=== PATIENT | female | born 1950 | race Caucasian/White ===

== ENCOUNTER → 2023-11-16 09:06 | Outpatient (REF) | payer OTHER, SELFPAY | LOC: RAD 09:06 | PROVIDERS: ATTENDING PHYSICIAN Physician Assistant Surgical; FAMILY PHYSICIAN Family Medicine | DX: Z96.642 Presence of left artificial hip joint (principal) | CPT/HCPCS: 78315; A9503 ==

== ENCOUNTER → 2023-12-22 17:32 | Outpatient (REF) | payer OTHER, SELFPAY | LOC: PAVMRI 17:32 | PROVIDERS: ATTENDING PHYSICIAN Physician Assistant Surgical; FAMILY PHYSICIAN Family Medicine | DX: M54.50 Low back pain, unspecified (principal) | CPT/HCPCS: 72148 ==

== ENCOUNTER → 2024-02-16 14:48 | Outpatient (REF) | payer OTHER, SELFPAY | LOC: WDC 14:48 | PROVIDERS: ATTENDING PHYSICIAN Family Medicine | DX: Z12.31 Encounter for screening mammogram for malignant neoplasm of breast (principal) | CPT/HCPCS: 77063; 77067 ==

== ENCOUNTER 2024-02-26 13:12 | Inpatient (IN) | payer OTHER, SELFPAY ==
[2024-02-26] VITALS (11 sets, daily range): BP systolic 120–161; BP diastolic 68–96; BMI 24.5
[2024-02-26 10:46] LABS: % Basophils 1.7 % (0-2); % Eosinophils 18.3 % (0-6); % Immature Granulocytes 0.3 % (0-0.5); % Lymphocytes 29.4 % (20.5-51.1); % Monocytes 6.9 % (1.7-9.3); % Neutrophils 43.4 % (42.2-75.2); Absolute Basophils 0.1 10^3/uL (0-0.2); Absolute Eosinophils 1.2 10^3/uL (0-0.7); Absolute Lymphocytes 1.9 10^3/uL (1.2-3.4); Absolute Monocytes 0.4 10^3/uL (0.1-0.6); Absolute Neutrophils 2.8 10^3/uL (1.4-6.5); Hemoglobin 12.8 g/dL (12.0-16.0); Mean Corp Hgb Conc. 35.6 g/dL (33.0-37.0); Mean Corpuscular Hgb 32.5 pg (27.0-31.0); Mean Corpuscular Volume 91.4 fL (81.0-99.0); Mean Platelet Volume 9.4 fL (7.4-10.4); Nucleated Red Blood Cells % 0 %; Platelet Count 319 10^3/uL (130-400); Red Blood Cell Count 3.94 10^6/uL (4.20-5.40); Red Cell Dist. Width 12.3 % (11.5-14.5); White Blood Cell Count 6.4 10^3/uL (4.8-10.8)
[2024-02-26 10:58] LABS: ALT (SGPT) 14 U/L (0-35); AST (SGOT) 27 U/L (14-36); Albumin 4.1 g/dl (3.5-5.0); Alkaline Phosphatase 71 U/L (38-126); Blood Urea Nitrogen 11 mg/dl (7-17); Calcium 9.3 mg/dl (8.4-10.2); Carbon Dioxide 25 mmol/L (22-30); Chloride 102 mmol/L (98-107); Glucose 114 mg/dl (70-99); Potassium 3.9 mmol/L (3.5-5.1); Sodium 134 mmol/L (135-145); Total Protein 6.6 g/dl (6.3-8.2); eGFR > 60.00
[2024-02-26 11:11] LABS: Troponin I 0.142 ng/ml
[2024-02-26] MEDS: DUONEB 3 ML INH ×5 (11:26→20:04)
[2024-02-26] MEDS: DECADRON 10 MG IV (11:26)
--- NOTE | 2024-02-26 11:47 | ED.GENMED ---
History of Present Illness
General
Chief Complaint: Breathing Problem
Source: patient and family
Exam Limitations: none
Time Seen by Provider: 02/26/24 10:44
Travel History
Have you had any contact with someone who has COVID-19?: No
Do you have any symptoms of coronavirus? Fever > 100 degrees, chills, cough, shortness of breath, sore throat, loss of taste or smell, muscle aches, or headache?: Yes
Symptoms:: sob
History of Present Illness
History of Present Illness:
73-year-old female presents short of breath. Patient states that her shortness of breath is progressed over the last 1 week but worse since this morning. Patient also admits she has had some chest pressure and pain into her arms over the last few
days that comes and goes. Patient states that the chest pressure is gone right now. She admits that she was not taking her inhaler for about a week. She does continue to smoke. No fevers.
Past History
Past History
ED Past Medical History: HTN, Hypothyroidism and Other (PMR, temporal arteritis)
ED Past Surgical History: and Orthopedic
Social History
Tobacco: Smoker
Alcohol: None
Drug: None
Personal:
Living: with family
Phy Exam
Physical Exam
Physical Exam:
CONSTITUTIONAL Patient alert and oriented to person, place and time. Well-appearing. Vital signs reviewed.
HEAD atraumatic, normocephalic.
EYES eyelids normal to inspection, Pupils equally round and reactive to light, Extraocular muscles intact, Conjunctiva normal, Sclera normal.
NECK normal range of motion, Trachea midline, no jugular venous distention.
RESPIRATORY CHEST mild respiratory distress noted, Chest expansion equal, wheezing bilaterally
CARDIOVASCULAR regular rate and rhythm, Heart sounds normal.
BACK normal inspection, no obvious deformities
UPPER EXTREMITY range of motion normal, Motor strength normal, no cyanosis, no edema.
LOWER EXTREMITY range of motion normal, Motor strength normal, no cyanosis, no edema.
NEURO Speech normal, No focal motor deficits, [place] coma scale 15, Memory normal, Cranial Nerves intact to screening exam.
SKIN skin warm, dry, and normal in color.
PSYCHIATRIC patient oriented to person place and time, Normal affect.
Scores
Heart Failure Risk
Heart Failure Risk Score: Not Applicable
Course
Orders/Labs/Results
Orders:
Orders
02/26/24 10:12
Electrocardiogram (*1) Urgent
Reason for Study: Shortness of Breath
EKG- Treatment ONCE
02/26/24 10:30
CXR2 [CR Chest - 2 Views ] Urgent
Comment:
Reason For Exam: shortness of breath
02/26/24 10:39
Complete Blood Count/With Diff Urgent
Comprehensive Metabolic Panel Urgent
NT-proBNP Urgent
Troponin I Urgent
02/26/24 11:07
Dexamethasone Sod Phosphate [Decadron] 10 mg IV NOW STA
Ipratropium/Albuterol Sulfate [Duoneb] 3 ml INH R NOW STA
Ipratropium/Albuterol Sulfate [Duoneb] 3 ml INH R NOW STA
Ipratropium/Albuterol Sulfate [Duoneb] 3 ml INH R NOW STA
02/26/24 11:46
Electrocardiogram (*1) Urgent
Reason for Study: Chest Pain
EKG- Treatment ONCE
Aspirin 325 mg PO NOW STA
Heparin 4,000 units IV NOW STA
Nursing to Place Non Medication Order As Directed
Physician Order: PTT 6 hours after initial start of Heparin infusion
02/26/24 11:52
PTT Urgent
Comment: Obtain baseline before beginning heparin infusion if not already collected
02/26/24 12:00
Heparin 41592 Units/250 ml 25,000 units in 250 ml IV PER PROTOCOL
Weight to be used for heparin protocol in kilograms (kg):: 68.9
Protocol:: Cardiac Tx/Acute Coronary
PTT Goal Range to be used:: PTT 73 to 111 seconds
Order type:: Initial
INITIAL Infusion Dose (UNITS/KG/hr) & then follow protocol:: 12 units/kg/hr
Infusion Dose in UNITS/hr & then follow protocol (UNITS/hr):: 850
INFUSION RATE in mL/hr & then follow protocol (mL/hr):: 8.5
PTT less than or equal to 64 seconds:: Increase rate by 200 units/hr (+ 2 mL/hr)
PTT 64.1 to 72.9 seconds:: Increase rate by 100 units/hr (+ 1 mL/hr)
PTT 73 to 111 seconds:: Target Range. No change in rate.
PTT 111.1 to 130.9 seconds:: Decrease rate by 100 units/hr (- 1 mL/hr)
PTT 131 to 199.9 seconds:: HOLD for 1 hr. Then decrease rate by 200 units/hr (- 2 mL/hr)
PTT greater than or equal to 200 seconds:: HOLD for 2 hrs & Notify Provider. Then decrease by 200 units/hr (-
2 mL/hr)
Lab follow-up:: Each change, PTT q6h until 2 consecutive are therapeutic. Then PTT
daily.
02/26/24 12:50
CARDIOLOGY CONSULT Routine
Consulting Provider: Kenney Garnica
Was physician already notified: Yes
02/26/24 12:51
Admit/Transfer Patient As Directed
Co-Sign Provider:
Level of Care: Inpatient admission
Assign to:: IV[facility]
Physician / Group: Aureliano
Diagnosis: COPD Exacerbation, NSTEMI
Reason for Hospitalization: aspirin, heparin drip, cardiology consult
Expected length of stay greater than two midnights?: Yes
ELOS- Estimated Length of Stay in days: 3
I certify the patient meets the requirements for IP care: Yes
02/26/24 12:52
Code Status As Directed
Resuscitation Status: Full Code
02/26/24 14:23
Troponin I Q6H
02/26/24 14:30
ECG [Electrocardiogram (*1)] Q6H
Reason for Study: Chest Pain
02/26/24 18:30
PTT Urgent
02/26/24 20:30
ECG [Electrocardiogram (*1)] Q6H
Reason for Study: Chest Pain
Troponin I Q6H
Abnormal Lab Results
02/26/24
10:39
RBC 3.94 L 10^6/uL
(4.20-5.40)
Hct 36.0 L %
(37.0-47.0)
MCH 32.5 H pg
(27.0-31.0)
Absolute Eos (auto) 1.2 H 10^3/uL
(0-0.7)
Eosinophils % 18.3 H %
(0-6)
Sodium 134 L mmol/L
(135-145)
Glucose 114 H mg/dl
(70-99)
Troponin I 0.142 H* ng/ml
02/26/24 10:39
02/26/24 10:39
Vital Signs
Initial and Last Documented VS:
Initial Vital Signs
Temp Pulse Resp BP Pulse Ox
97.9 F 82 18 161/96 92
02/26/24 10:09 02/26/24 10:09 02/26/24 10:09 02/26/24 10:09 02/26/24 10:09
Last Documented Vital Signs
Temp Pulse Resp BP Pulse Ox
97.5 F 87 20 128/77 96
02/26/24 14:55 02/26/24 14:55 02/26/24 14:55 02/26/24 14:55 02/26/24 14:55
MDM/Problems Addressed
MDM/Problems Addressed:
Acute severe COPD exacerbation, unstable angina, chronic tobacco abuse
*Radiology
Radiology exam reviewed: preliminary read by ED provider
*Pulse Oximetry
Patient hypoxic: yes
*EKG
Interpreted by ED Provider?: Yes
Interpretation: abnormal
Rate: normal
Rhythm: sinus
Ischemia: non-specific ST changes (Q wave inferiorly. Question mild ST elevation without reciprocal changes in inferior leads.)
*Map Mounter Interpretation
Rate: normal
Interpretation: normal
Rhythm: sinus
*Critical Care Note
Total Time (30-74mins, 75-104mins- exclusive of procedures): 45 minutes
Data Reviewed
Review of Other/Old Records Reveals: Records (Prior records reviewed including Holter monitor and stress test from 2019)
Source: patient and family
Further Testing Considered But Not Given:
Considered CTA but specked COPD exacerbation with unstable angina. Treat with heparin
Patient Management
Discussion with other providers: Hospitalist
Escalation/DeEscalation of care consider admission/obs:
73-year-old female presents with COPD exacerbation. Found to have elevated troponin with recent off-and-on chest pressure. Currently pain-free. IV heparin. Aspirin. Steroids. Admit
ED Attending Note
-
Portions of this chart may have been created with voice recognition software.� Occasional wrong word or��sound alike� substitutions may have occurred due to the inherent limitations of voice recognition software.
Discharge Plan
Departure
Patient Disposition: Admit
Date of Disposition: 02/26/24
Time of Disposition: 11:51
Admit to: Telemetry
Presentation/result/management discussed w/ accepting MD/DO: Hospitalist
Discharge Problem:
Acute exacerbation of chronic obstructive pulmonary disease, Unstable angina
Interventions
Interventions:
*Risk Screen - Suicide Last Done: 02/26/24 10:57
*General Assessment Last Done: 02/26/24 10:57
*Neglect/Abuse Screening Last Done: 02/26/24 10:57
ED- Fall Risk Assessment Last Done: 02/26/24 10:57
*ED COVID-19 Vaccine History Last Done: 02/26/24 10:09
*Nursing Disposition Last Done: 02/26/24 14:28
ED- Cardiac Assessment Last Done: 02/26/24 10:57
ED- Pulmonary Assessment Last Done: 02/26/24 10:57
Discharge Date and Time
Discharge Date/Time: 02/26/24 15:13
[2024-02-26] MEDS: ASPIRIN 325 MG PO (11:59)
[2024-02-26 12:15] LABS: APTT 31.4 Sec (23.4-35.0)
[2024-02-26] MEDS: HEPARIN 25000 UNITS/250 ML IV (12:23)
[2024-02-26] MEDS: HEPARIN 4000 UNITS IV (12:24)
--- NOTE | 2024-02-26 12:32 | EDRN ---
Heparin gtt started at 850units/hour, this RN noticed that the pts Sp02 dipped to 88%, this RN placed 3L NC on the pt and Sp02 came up to 98%, this RN notified the provider
--- NOTE | 2024-02-26 13:14 | HPS.HSE ---
Family Physician
-
Family Physician: Demarco Kapoor
Chief Complaint
-
Shortness of Breath
History of Present Illness
This is a 73 year old female with past medical history of chronic obstructive pulmonary disease who presents to the emergency department with shortness of breath for a week. She reports stopping her inhalers 2 weeks ago for a couple of days and then
restarting them last week per recommendation of her PCP. Over the last week, she reports her dyspnea worsened and noticed she started wheezing, prompting her to present to the emergency department. She states she cannot take a deep breath. Patient
notes increased cough productive of thick white sputum. Patient was given Duoneb in the emergency department and reports improvement in her breathing and wheezing. Upon arrival to the emergency department, she also reported chest pressure and arm
pain. She states this is new in the last couple of days and notes the pressure comes and goes, particularly worse today. She denies chest pain/pressure at the present time. Patient denies fever, chills, and sweats.
Medical History
Past Medical History
Past Medical History: Reports Other
Additional Past Medical History:
COPD
Hypothyroidism
Spinal Stenosis
Osteoporosis
Past Surgical History: Reports Other
Additional Past Surgical History:
Left Hip Replacement
Carpal Tunnel
x 3
Social History
Tobacco: Smoker (1 ppd x 40 years)
Living: With Family
Family History
Family History: Not pertinent
Allergies / Home Medications
Allergies reflects when Allergies were last updated in [employer].
Home Medications with original date entered in [employer]
Allergy/Medication List:
Allergies
Allergy/AdvReac Type Severity Reaction Status Date / Time
No Known Allergies Allergy Verified 07/21/23 05:01
Home Medications
calcium carbonate 500 mg PO BID Supplement 07/15/23
cholecalciferol (vitamin D3) 50 mcg (2,000 unit) tablet (Vitamin D3) 50 mcg PO DAILY Supplement 07/15/23
cyanocobalamin (vitamin B-12) 2,500 mcg tablet 2,500 mcg PO DAILY Supplement 07/15/23
gabapentin 300 mg capsule 300 mg PO BID Pain 07/15/23
levothyroxine 75 mcg tablet 75 mcg PO DAILY Thyroid 07/15/23
umeclidinium 62.5 mcg-vilanterol 25 mcg/actuation powdr for inhalation (Anoro Ellipta) 2 inh inhalation R DAILY Lung/Breathing Issues 07/15/23
albuterol sulfate 90 mcg/actuation aerosol inhaler 2 puff inhalation R Q4HPRN PRN shortness of breath or wheezing 02/26/24
ascorbic acid (vitamin C) 500 mg tablet (Vitamin C) 500 mg PO DAILY PRN supplement 02/26/24
dextran 70-hypromellose eye drops in a dropperette (Artificial Tears (PF) drops in a dropperette) 1 drp LEFT EYE DAILYPRN PRN dry eye 02/26/24
flaxseed oil 1,000 mg capsule 1,000 mg PO BID 02/26/24
ibuprofen 200 mg tablet 400 mg PO BID 02/26/24
Review of Systems
-
A 12 point ROS was completed and negative except as noted: Yes
Constitutional: Denies Fever or Chills
Respiratory: Reports See HPI and Cough
Cardiac: Reports See HPI
Abdomen/GI: Denies Abdominal Pain, Nausea or Vomiting
Physical Exam
Vital Signs
Vital Signs
Temp Pulse Resp BP Pulse Ox
98.1 F 84 28 146/87 98
02/26/24 12:33 02/26/24 12:33 02/26/24 12:33 02/26/24 12:33 02/26/24 12:33
Physical Exam
General: Comfortable and Conversant
HEENT: Anicteric, Moist mucous membranes and Oxygen (Nasal Cannula)
Respiratory: Wheezes (Faint late expiratory wheezes anteriorly) and Decreased Breath Sounds (posteriorly)
Cardiac: S1/S2 and Regular Rhythm
GI: Soft and Non Tender
Rectal: Deferred by Provider
Musculoskeletal: No Clubbing, No Cyanosis and No Edema
Skin: Warm and Dry
Neuro: Awake, Alert, Oriented and Nonfocal/grossly intact
Laboratory Results
-
02/26/24 10:39
02/26/24 10:39
Laboratory Results
APTT 31.4 Sec (23.4-35.0) 02/26/24 11:52
Total Bilirubin 1.0 mg/dl (0.2-1.3) 02/26/24 10:39
AST 27 U/L (14-36) 02/26/24 10:39
ALT 14 U/L (0-35) 02/26/24 10:39
Alkaline Phosphatase 71 U/L (38-126) 02/26/24 10:39
Troponin I 0.142 ng/ml H* 02/26/24 10:39
Data Reviewed
-
Diagnostic Radiology: Report Reviewed by me (CXR)
Medical Tests (Nuc Med, Echo, EKG etc): Image Personally Visualized and interpreted (Multiple ECG comparisons)
Lab Data: Labs Reviewed by me
Impression/Plan
-
Acute COPD Exacerbation
-Continue Decadron
-Continue Duoneb QID and PRN
-Continue Pulmicort
Elevated Troponin, rule out NSTEMI
-Consult Cardiology
-Trend Troponin and Monitor serial ECGs
-Continue heparin drip
-Continue aspirin
-Check FLP and HgbA1c
Hypothyroidism
-Continue Synthroid
Spinal Stenosis
-Continue gabapentin
-Hold meloxicam
Tobacco Use Disorder
-Encourage smoking cessation
DVT proph: Heparin Drip
Code Status: Full Code
--- NOTE | 2024-02-26 14:15 | EDRN ---
verbal report called to the receiving nurse
--- NOTE | 2024-02-26 14:38 | W.PN.UPDATE ---
Update Note
Progress Note Update
I saw and examined the patient.
The MECHANICAL SHOVEL OPERATOR's note was reviewed and I agree with the note.
73-year-old female with past medical history of COPD, active tobacco use, hypothyroidism, history of spinal stenosis, history of hip replacement was brought to ER for having ongoing shortness of breath for 1 week. Patient history of using inhalers
neither any particular reason and was noted to having some wheezing starting. No URTI like symptoms. Patient had some chest tightness without associated diaphoresis nausea vomiting. In ER patient felt to be having COPD flareup although troponin
elevation and concern of ACS as well. Patient be admitted for further eval.
HEENT: No pallor, cyanosis, or jaundice. Throat clear.
NECK: Supple. No JVD.
RESPIRATORY: minimal wheezing
CVS: S1, S2 normal. RRR. No murmur, rub or gallop.
ABDOMEN: Soft, non-tender. No distension. BS+/normal.
EXTREMITIES: No peripheral cyanosis or edema.
HEATING ENGINEER: AOx3. No focal deficits.
COPD flare up
Acute hypoxic resp insuff
-Chest examination very clear except some minimal wheezing
-CXR clear
-Current active tobacco user
-Start on IV steroids and nebulizer therapy
Elevated troponin
Rule out ACS
-No previous history of cardiac issues. Patient active smoker and high risk
-Troponin elevated 0.14, follow-up troponin ordered
-Some ST depression in lead to 3 aVF,
-Currently on heparin drip and got asa 325mg x1
-cardio involved for further help
Tobacco use
- NO nicotine patch as ACS being ruled out
Full code
--- NOTE | 2024-02-26 15:01 | EDRN ---
Troponin increased from first one that was drawn, provider notified
--- NOTE | 2024-02-26 15:07 | EDRN ---
this RN spoke to Bri Monroy and Dr. Garnica and both saw the pts second troponin, the pt will be going to [facility]
--- NOTE | 2024-02-26 16:21 | PTCARENOTE ---
received pt from ed, pt is aaox3, sr on the monitor, hr in the 90s, vss. pt offers no complaints at this time. pt educated on plan of care for the evening and pt verbalized understanding. son visiting at bedside. call kitchen within reach.
[2024-02-26] MEDS: DECADRON 4 MG IV (17:10)
[2024-02-26] MEDS: LIPITOR 40 MG PO (17:10)
[2024-02-26 17:19] LABS: COVID-19 Antigen Negative (Negative)
[2024-02-26] MEDS: PULMICORT 0.5 MG INH (20:09)
[2024-02-26 20:34] LABS: APTT > 200 Sec (23.4-35.0)
[2024-02-26] MEDS: MUCINEX 600 MG PO (20:52)
[2024-02-27] MEDS: DECADRON 4 MG IV ×4 (00:46→23:16)
[2024-02-27 04:32] VITALS: BP 124/85
[2024-02-27 04:52] VITALS: BMI 15.7
[2024-02-27 04:55] LABS: Hematocrit 33.2 % (37.0-47.0); Hemoglobin 11.9 g/dL (12.0-16.0); Mean Corp Hgb Conc. 35.8 g/dL (33.0-37.0); Mean Corpuscular Hgb 31.8 pg (27.0-31.0); Mean Corpuscular Volume 88.8 fL (81.0-99.0); Mean Platelet Volume 9.9 fL (7.4-10.4); Platelet Count 314 10^3/uL (130-400); Red Blood Cell Count 3.74 10^6/uL (4.20-5.40); Red Cell Dist. Width 12.2 % (11.5-14.5); White Blood Cell Count 7.1 10^3/uL (4.8-10.8)
[2024-02-27 04:58] LABS: APTT 73.6 Sec (23.4-35.0)
[2024-02-27 05:26] LABS: Blood Urea Nitrogen 14 mg/dl (7-17); Calcium 9.1 mg/dl (8.4-10.2); Carbon Dioxide 21 mmol/L (22-30); Chloride 103 mmol/L (98-107); Estimated Creatinine Clearance 60 ml/min; Glucose 140 mg/dl (70-99); HDL Cholesterol 76 mg/dl; LDL Cholesterol, Calculated 126 mg/dl; Potassium 4.1 mmol/L (3.5-5.1); Sodium 132 mmol/L (135-145); Total Cholesterol 211 mg/dl (50-199); Triglyceride 48 mg/dl (10-149); Very Low Density Lipoprotein 9 mg/dl (0-30); eGFR > 60.00
[2024-02-27 05:58] LABS: TSH Reflex To Free T4 0.36 uIU/ml (0.47-4.68)
[2024-02-27 06:00] VITALS: BMI 15.7
[2024-02-27 06:29] LABS: Free T4 1.64 ng/dl (0.78-2.19)
[2024-02-27 07:14] VITALS: BP 122/71
[2024-02-27] MEDS: PULMICORT 0.5 MG INH ×2 (07:20→21:12)
[2024-02-27] MEDS: DUONEB 3 ML INH ×4 (07:20→21:12)
--- NOTE | 2024-02-27 07:38 | CON.CAR ---
Consultation
Consultation Request
Date/Time Consultation Requested: 10/28/2023
Date/Time Consultation Performed: 10/28/2023
Reason for Consultation: Shortness of breath
Medical History
-
Chief Complaint: Shortness of breath
History of Present Illness:
73-year-old woman with history of COPD presented to the ER with severe onset of shortness of breath for a week. Patient was feeling well so she stopped taking her inhalers 2 weeks ago. She recently has restarted taking her inhalers. She presented
with dyspnea and was wheezing. She was having difficulty taking deep breaths. She also noted to have cough with productive thick white sputum. She was given DuoNebs in the ER that significantly improved her symptoms.
However, patient also reported some chest pressure. An EKG was done that was negative. Troponin was done which was mildly elevated. Patient reports that she has on and off chest pain/pressure associated with shortness of breath which is going on
for months. She denies any fevers rigors and chills. She is reporting upper respiratory tract symptoms. She denies any cardiac history in the past.
Patient was initially evaluated in the ER and then again this morning. She is significantly improved. Patient's respiratory distress has improved significantly since the ER. She is feeling much better. Denies any chest pain.
Past Medical History
Past Medical History: COPD, HTN, Hypothyroidism and Other (Spinal stenosis, osteoporosis)
Past Surgical History: , Orthopedic (Left hip replacement, carpal tunnel) and Other
Social History
Tobacco: Smoker (48-yoac-panu smoking history. Currently smoking 1 pack/day.)
Living: With Family
Family History
Family History: Reviewed & Not Pertinent
Allergies / Home Medications
Allergy/AdvReac Type Severity Reaction Status Date / Time
No Known Allergies Allergy Verified 07/21/23 05:01
�Medication �Instructions �Recorded �Confirmed �Type
calcium carbonate 500 mg PO BID Supplement 07/15/23 02/26/24 History
cholecalciferol (vitamin D3) 50 50 mcg PO DAILY Supplement 07/15/23 02/26/24 History
mcg (2,000 unit) tablet (Vitamin
D3)
cyanocobalamin (vitamin B-12) 2,500 mcg PO DAILY Supplement 07/15/23 02/26/24 History
2,500 mcg tablet
gabapentin 300 mg capsule 300 mg PO BID Pain 07/15/23 02/26/24 History
levothyroxine 75 mcg tablet 75 mcg PO DAILY Thyroid 07/15/23 02/26/24 History
umeclidinium 62.5 mcg-vilanterol 2 inh inhalation R DAILY 07/15/23 02/26/24 History
25 mcg/actuation powdr for Lung/Breathing Issues
inhalation (Anoro Ellipta)
albuterol sulfate 90 mcg/actuation 2 puff inhalation R Q4HPRN PRN 02/26/24 02/26/24 History
aerosol inhaler shortness of breath or wheezing
ascorbic acid (vitamin C) 500 mg 500 mg PO DAILY PRN supplement 02/26/24 02/26/24 History
tablet (Vitamin C)
dextran 70-hypromellose eye drops 1 drp LEFT EYE DAILYPRN PRN dry eye 02/26/24 02/26/24 History
in a dropperette (Artificial Tears
(PF) drops in a dropperette)
flaxseed oil 1,000 mg capsule 1,000 mg PO BID 02/26/24 02/26/24 History
ibuprofen 200 mg tablet 400 mg PO BID 02/26/24 02/26/24 History
Review of Systems
-
All other systems: Negative unless noted
Physical Exam
Vital Signs
Temp Pulse Resp BP Pulse Ox
98.0 F 80 16 124/85 98
02/27/24 04:33 02/27/24 07:22 02/27/24 07:22 02/27/24 04:32 02/27/24 04:33
Lab Results
02/27/24 04:39
02/27/24 04:39
Troponin I Cancelled 02/26/24 21:23
Lfw-K-Edikoyhmird Pept 99.0 pg/ml 02/26/24 10:39
Physical Exam
General: Respiratory Distress and Other
HEENT: Normocephalic and Moist Mucous Membranes
Respiratory: Wheezes and Rhonchi
Cardiac: S1/S2, Regular Rhythm and Murmur
GI: Soft, Non Tender and Non Distended
Musculoskeletal: No Clubbing, No Cyanosis and No Edema
Neuro: Awake, Alert, Oriented and AO x 3
Psych: Calm
Impression / Plan
-
73-year-old woman with history of COPD presented with shortness of breath with COPD exacerbation and is noted to have mild troponin leak.
Troponin leak
-Patient has mild troponin leak. Serial troponin shows initial elevation but has stabilized without any significant changes in the EKG.
-Chest pain-free.
-Likely non-TN troponin leak secondary to COPD and RV strain.
-Treat COPD first.
-Rule out COVID/upper respiratory tract infection
-Will most likely need stress test -needs cardiac evaluation as an outpatient.
-Will obtain echo in the morning.
-On aspirin and heparin drip.
-If troponin does not rise any further, we can discontinue heparin.
Acute respiratory failure
-Likely secondary to acute COPD exacerbation.
-Treatment as per primary team. Currently on DuoNeb, steroid, Pulmicort.
-Antibiotic as per primary team.
-Rule out upper respiratory tract infection.
Data Reviewed
-
EKG: Tracing Personally Visualized and interpreted and Report Reviewed by me
Radiology: Report Reviewed by me
Labs: Labs Reviewed by me, Discussed with Physician and Discussed with Patient
Old Records: Reviewed
[2024-02-27] MEDS: MUCINEX 600 MG PO ×2 (08:46→19:26)
[2024-02-27] MEDS: LOW STRENGTH ASPIRIN 81 MG PO (08:47)
[2024-02-27] MEDS: SYNTHROID 75 MCG PO (08:47)
[2024-02-27 08:59] LABS: Glycohemoglobin (HgbA1c) 5.5 % (4.0-5.6)
[2024-02-27 10:49] VITALS: BP 111/76
[2024-02-27 10:59] LABS: APTT 70.6 Sec (23.4-35.0)
--- NOTE | 2024-02-27 13:29 | W.PN.HOSP.TC ---
Today's Communication/Plan
-
continue steroids
continue heparin drip/nebs
await further recommendation from cardio
Assessment / Plan
Assessment / Plan
NSTEMI
-No previous history of cardiac issues. Patient active smoker and high risk
-Troponin elevated 0.14>2.1>2
-Some ST depression in lead to 3 aVF,
-Currently on heparin drip and got asa 325mg x1 in ER
-on asa/statin/heparin drip at this point
-cardio involved for further help
COPD flare up
Acute hypoxic resp insuff
-Chest examination very clear except some minimal wheezing
-CXR clear
-Current active tobacco user
-Start on IV steroids and nebulizer therapy
Tobacco use
- NO nicotine patch with ACS
Hypothyroidism
Essential hypertension
History of left total hip replacement
Restless leg syndrome
Neuropathy
Full code
Anticipated Discharge: 24 - 48 hours
Subjective/Interval History
-
Date of Service: February 27, 2024
Continues to be hypoxic on oxygen
not dyspnic
No overt chest pain
No other acute issues reported
Objective Data
-
Labs:
Laboratory Results
02/27/24 02/27/24 02/27/24
04:39 10:31 16:35
WBC 7.1
Hgb 11.9 L
Hct 33.2 L
Plt Count 314
APTT 73.6 H 70.6 H Pending
Sodium 132 L
Potassium 4.1
Chloride 103
Carbon Dioxide 21 L
BUN 14
Creatinine 0.6
Glucose 140 H
Calcium 9.1
Vital Signs:
Vital Signs
Temp Pulse Resp BP Pulse Ox
97.7 F 92 20 111/76 99
02/27/24 11:39 02/27/24 12:30 02/27/24 11:39 02/27/24 10:49 02/27/24 11:39
I&O
02/26/24 02/27/24 02/28/24
06:59 06:59 06:59
Intake Total 720 / 720
Balance 720 / 720
Review of Systems
-
Respiratory: Reports No Symptoms
Cardiac: Reports No Symptoms
Abdomen/GI: Reports No Symptoms
Physical Exam
-
General: No Apparent Distress and Comfortable
HEENT: Negative Oxygen
Respiratory: Clear to Auscultation
Cardiac: Regular Rhythm and S1/S2; Negative Murmur or Rub
GI: Soft, Nontender, Nondistended and Normal Bowel Sounds
Musculoskeletal: No Edema
Neuro: Awake, Alert, Oriented, No Motor Deficits and Nonfocal/Grossly Intact
Psych: Calm
[2024-02-27 15:08] VITALS: BP 115/72
[2024-02-27] MEDS: LIPITOR 40 MG PO (16:32)
[2024-02-27 17:28] LABS: APTT 56.6 Sec (23.4-35.0)
--- NOTE | 2024-02-27 18:01 | PTCARENOTE ---
pt is sr on the monitor, hr 90s, vss. pt educated on plan of care for the night and pt verbalized understanding. heparin gtt running per protocol, see documentation. call kitchen within reach.
[2024-02-27 18:17] VITALS: BP 134/81
--- NOTE | 2024-02-27 21:44 | PTCARENOTE ---
Pt rec'd at change of shift awake,alert lying in bed. Dyspnea with talking, breath sounds diminished throughout. Sinus on telemetry. Heparin drip continued at 950 units/hr. rings appropriately for assist to bathroom with quad cane. call kitchen within
reach.
[2024-02-27 22:12] VITALS: BP 105/71
[2024-02-27] MEDS: HEPARIN 25000 UNITS/250 ML IV (22:36)
[2024-02-27] MEDS: TYLENOL 650 MG PO (23:35)
--- NOTE | 2024-02-27 23:38 | PTCARENOTE ---
Pt given Tylenol for c/o b/l le discomfort/restless legs
[2024-02-27 23:53] LABS: APTT 92.8 Sec (23.4-35.0)
--- NOTE | 2024-02-28 01:31 | PTCARENOTE ---
Pt found twice getting oob on her own, reports feeling a little 'forgetful'. bed alarm placed for pt safety.
[2024-02-28 03:10] VITALS: BP 140/79
[2024-02-28 05:47] LABS: Hematocrit 35.3 % (37.0-47.0); Hemoglobin 12.8 g/dL (12.0-16.0); Mean Corp Hgb Conc. 36.3 g/dL (33.0-37.0); Mean Corpuscular Hgb 32.4 pg (27.0-31.0); Mean Corpuscular Volume 89.4 fL (81.0-99.0); Mean Platelet Volume 9.6 fL (7.4-10.4); Platelet Count 349 10^3/uL (130-400); Red Blood Cell Count 3.95 10^6/uL (4.20-5.40); Red Cell Dist. Width 12.4 % (11.5-14.5); White Blood Cell Count 14.2 10^3/uL (4.8-10.8)
[2024-02-28 05:48] LABS: Urine Albumin Negative (Neg - Trace); Urine Bilirubin Negative (Negative); Urine Character Clear (Clear); Urine Color Straw; Urine Glucose Negative (Negative); Urine Ketone Negative (Negative); Urine Leukocyte Negative (Negative); Urine Nitrite Negative (Negative); Urine Occult Blood Negative (Negative); Urine Urobilinogen Negative (Neg - 1+)
--- NOTE | 2024-02-28 05:54 | PTCARENOTE ---
Bed alarm removed after it repetitively went off every few mins when pt rolled side to side. curtain pulled back to visualize pt for safety. After freq trips to , order obtained from house MANAGER PROGRAM MANAGEMENT for ua. clean catch specimen sent this morning.
[2024-02-28 06:03] LABS: APTT 114.9 Sec (23.4-35.0)
[2024-02-28] MEDS: DUONEB 3 ML INH ×3 (07:26→20:05)
[2024-02-28] MEDS: PULMICORT 0.5 MG INH ×2 (07:26→20:05)
[2024-02-28 07:32] VITALS: BP 126/74
[2024-02-28] MEDS: DECADRON 4 MG IV ×3 (08:42→23:23)
[2024-02-28] MEDS: LOW STRENGTH ASPIRIN 81 MG PO (08:43)
[2024-02-28] MEDS: MUCINEX 600 MG PO ×2 (08:43→20:01)
[2024-02-28] MEDS: SYNTHROID 75 MCG PO (08:44)
--- NOTE | 2024-02-28 09:58 | W.PN.CD ---
Today's Communication / Plan
-
- Await echo
- will review with primary team , invasive vs noninvasive evaluation for CAD
Impression / Plan
-
73-year-old woman with history of COPD presented with shortness of breath with COPD exacerbation and is noted to have mild troponin leak.
Troponin elevation
-troponin up to 2.2
-chest tightness on presentation which may have been related to pulmonary issues
-Likely non-AL troponin leak secondary to COPD and RV strain.
-Continue ASA
- Await echo
- will revie with primary team , invasive vs noninvasive evaluation for CAD
Acute respiratory failure
- improving
-Likely secondary to acute COPD exacerbation.
-Treatment as per primary team. Currently on DuoNeb, steroid, Pulmicort.
-Antibiotic as per primary team.
-Rule out upper respiratory tract infection.
Physical Exam
Vital Signs/Labs
Vital Signs
Temp Pulse Resp BP Pulse Ox
98.1 F 83 16 140/79 95
02/28/24 07:29 02/28/24 07:30 02/28/24 07:30 02/28/24 03:10 02/28/24 07:30
02/27/24 02/28/24 02/29/24
06:59 06:59 06:59
Actual Weight 44 kg
02/28/24 05:34
APTT 114.9 Sec (23.4-35.0) H 02/28/24 05:34
Triglycerides 48 mg/dl (10-149) 02/27/24 04:39
LDL Cholesterol, Calc 126 mg/dl 02/27/24 04:39
VLDL Cholesterol, Calc 9 mg/dl (0-30) 02/27/24 04:39
HDL Cholesterol 76 mg/dl 02/27/24 04:39
Free T4 1.64 ng/dl (0.78-2.19) 02/27/24 04:39
02/26/24
10:39
Mfy-X-Ptnjjgsmayb Pept 99.0
LAB Results
02/26/24 02/26/24 02/26/24
10:39 14:23 15:23
Troponin I 0.142 H* 2.260 H* D Cancelled
02/26/24 02/26/24 02/26/24
18:23 18:30 19:38
Troponin I Cancelled Cancelled 2.010 H*
02/26/24
21:23
Troponin I Cancelled
Physical Exam
Constitutional: No acute distress
Cardiovascular: Rhythm & rate is regular
Respiratory: Wheeze Absent and Rhonchi Absent
GI: Soft
Neuro/Psych: Alert
Data Reviewed
-
Date of Service: February 28, 2024
Medical Decision Making: Reviewed Test Results
X-Ray/CT/US/MRI/NUC/PET: Report Reviewed by me
Medical Tests (PFT, Pathology etc): Report Reviewed by me
Labs: Labs Reviewed by me
[2024-02-28 11:21] VITALS: BP 129/70
--- NOTE | 2024-02-28 12:23 | W.PN.HOSP.TC ---
Today's Communication/Plan
-
Monitor vitals
See plan
Continue with IV steroids, nebs
Echo today
Continue IV heparin
Assessment / Plan
Assessment / Plan
NSTEMI
-No previous history of cardiac issues. Patient active smoker and high risk
-Troponin elevated 0.14>2.1>2
-Some ST depression in lead to 3 aVF,
-Currently on heparin drip and got asa 325mg x1 in ER
-on asa/statin/heparin drip at this point
-cardio involved for further help; echo pending 02/27
COPD exacerbation
Acute hypoxic resp insuff
-Chest examination very clear except some minimal wheezing
-CXR clear
-Current active tobacco user
-Started on IV steroids and nebulizer therapy
Tobacco use
- NO nicotine patch with ACS
Hypothyroidism
Essential hypertension
History of left total hip replacement
Restless leg syndrome
Neuropathy
Full code
General: No Apparent Distress and Comfortable
HEENT: Negative Oxygen
Respiratory: Clear to Auscultation
Cardiac: Regular Rhythm and S1/S2; Negative Murmur or Rub
GI: Soft, Nontender, Nondistended and Normal Bowel Sounds
Musculoskeletal: No Edema
Neuro: Awake, Alert, Oriented, No Motor Deficits and Nonfocal/Grossly Intact
Psych: Calm
Anticipated Discharge: Within 24 hours
Subjective/Interval History
-
Date of Service: February 28, 2024
denies pain
Objective Data
-
Labs:
Laboratory Results
02/28/24 02/28/24 02/28/24
05:34 07:28 12:30
WBC 14.2 H
Hgb 12.8
Hct 35.3 L
Plt Count 349
APTT 114.9 H Pending
Sodium Pending
Potassium Pending
Chloride Pending
Carbon Dioxide Pending
BUN Pending
Creatinine Pending
Glucose Pending
Calcium Pending
Vital Signs:
Vital Signs
Temp Pulse Resp BP Pulse Ox
98.3 F 91 16 126/74 97
02/28/24 11:19 02/28/24 11:22 02/28/24 11:22 02/28/24 07:32 02/28/24 11:22
I&O
02/27/24 02/28/24 02/29/24
06:59 06:59 06:59
Intake Total 1220 / 1220
Balance 1220 / 1220
--- NOTE | 2024-02-28 12:53 | CM ---
Chart reviewed. Patient is independent of ADLS, lives with her 4 sons, in a 2 [address]TH, 1st floor set up, ambulates with a SPC. Plan is for the patient to return home. CM to follow
--- NOTE | 2024-02-28 13:15 | PTCARENOTE ---
pt off unit for pci
[2024-02-28 13:33] LABS: APTT 110.6 Sec (23.4-35.0)
[2024-02-28 15:01] LABS: Blood Urea Nitrogen 13 mg/dl (7-17); Calcium 8.7 mg/dl (8.4-10.2); Carbon Dioxide 16 mmol/L (22-30); Chloride 106 mmol/L (98-107); Estimated Creatinine Clearance 60 ml/min; Glucose 97 mg/dl (70-99); Potassium 3.7 mmol/L (3.5-5.1); Sodium 130 mmol/L (135-145); eGFR > 60.00
[2024-02-28] MEDS: DUONEB INH (15:35)
[2024-02-28 16:26] VITALS: BP 145/80
[2024-02-28] MEDS: LIPITOR 40 MG PO (18:11)
--- NOTE | 2024-02-28 18:29 | PTCARENOTE ---
pt continues to be sr on the monitor, hr in the 80s, vss. pt stated 'I want a cigarette.' notified dr. lechuga, ordered nicotine patch. pt educated and reinforced the need to use the call kitchen when getting OOB. pt educated on plan of care for the
evening and pt verbalized understanding. heparin gtt running per protocol, see documentation. call kitchen within reach.
[2024-02-28 18:52] VITALS: BP 142/87
[2024-02-28] MEDS: TYLENOL 650 MG PO (20:01)
[2024-02-28] MEDS: NEURONTIN 300 MG PO (20:01)
[2024-02-28 20:13] LABS: APTT 95.9 Sec (23.4-35.0)
[2024-02-28] MEDS: NICODERM TRANSDERMAL TRANSDERM (21:17)
[2024-02-28 23:12] VITALS: BP 122/89
--- NOTE | 2024-02-29 00:27 | PTCARENOTE ---
Pt received start of shift, HR SR/ST. Family at bedside. Updated pt and family on plan of care and NPO status at 0000. Pt states understanding, but pt is forgetful. Educated pt on fall risk status. Reinforced importance of using call kitchen to call
for assistance prior to getting up, pt repeatedly trying to get up alone - bed alarm placed. Pt c/o 8/10 pain in L upper leg that pt/pt's family says is chronic but gabapentin usually keeps pain at bay. Tylenol administered - see MAR. Pt denies any
CP, worsening SOB, or lightheadedness/dizziness. Informed to notify RN if any changes, call kitchen within reach.
On routine rounds, pt found to have removed IV from L arm. Pt states they 'didn't realize'. New IV placed in R arm, heparin resumed.
[2024-02-29] MEDS: HEPARIN 25000 UNITS/250 ML IV (03:10)
[2024-02-29 05:39] VITALS: BP 135/78
[2024-02-29 05:52] VITALS: BMI 15.5
[2024-02-29 06:16] LABS: Mean Corp Hgb Conc. 35.3 g/dL (33.0-37.0); Mean Corpuscular Hgb 32.2 pg (27.0-31.0); Mean Corpuscular Volume 91.2 fL (81.0-99.0); Mean Platelet Volume 10.6 fL (7.4-10.4); Platelet Count 300 10^3/uL (130-400); Red Blood Cell Count 3.73 10^6/uL (4.20-5.40); Red Cell Dist. Width 12.3 % (11.5-14.5); White Blood Cell Count 10.6 10^3/uL (4.8-10.8)
[2024-02-29 06:17] LABS: APTT 86.4 Sec (23.4-35.0)
[2024-02-29 06:24] LABS: Blood Urea Nitrogen 15 mg/dl (7-17); Calcium 9.1 mg/dl (8.4-10.2); Chloride 100 mmol/L (98-107); Glucose 120 mg/dl (70-99); Potassium 4.2 mmol/L (3.5-5.1); Sodium 128 mmol/L (135-145)
[2024-02-29 06:41] LABS: Carbon Dioxide 19 mmol/L (22-30); Estimated Creatinine Clearance 59 ml/min; eGFR > 60.00
[2024-02-29] MEDS: DUONEB 3 ML INH ×3 (07:13→19:20)
[2024-02-29] MEDS: PULMICORT 0.5 MG INH ×2 (07:13→19:20)
[2024-02-29 07:35] VITALS: BP 156/93
--- NOTE | 2024-02-29 08:31 | W.PN.CD ---
Today's Communication / Plan
-
can have clears at breakfast otherwise, npo for cath today
Impression / Plan
-
73-year-old woman with history of COPD presented with shortness of breath with COPD exacerbation and is noted to have mild troponin leak.
Troponin elevation---Type 2 vs NSTEMI
-troponin peaked to 2.2, new RCA hypokinesist-->will proceed to cath.
Acute respiratory failure
- improving
-Likely secondary to acute COPD exacerbation.
-Treatment as per primary team. Currently on DuoNeb, steroid, Pulmicort.
-Antibiotic as per primary team.
-Rule out upper respiratory tract infection.
ECHO:02/19/24
CONCLUSIONS
Normal LV size and function.
LVEF is 55 to 60% by visual estimation. RCA territory hypokinesis.
Stage I diastolic dysfunction suggestive of abnormal relaxation.
Normal right ventricular size and function.
Mild tricuspid regurgitation.
Estimated pulmonary artery pressure of 26 mmHg, assuming a right atrial
pressure of 3 mmHg.
Compared to prior from August 03, 2020, RCA territory hypokinesis is new.
Subjective:
feeling better just wants a cup of coffee.
Physical Exam
Vital Signs/Labs
Vital Signs
Temp Pulse Resp BP Pulse Ox
98.3 F 97 22 135/78 93
02/29/24 07:36 02/29/24 07:36 02/29/24 07:36 02/29/24 05:39 02/29/24 07:36
02/28/24 02/29/24 03/01/24
06:59 06:59 06:59
Actual Weight 43.5 kg
02/29/24 05:47
02/29/24 05:46
APTT 86.4 Sec (23.4-35.0) H 02/29/24 05:46
Triglycerides 48 mg/dl (10-149) 02/27/24 04:39
LDL Cholesterol, Calc 126 mg/dl 02/27/24 04:39
VLDL Cholesterol, Calc 9 mg/dl (0-30) 02/27/24 04:39
HDL Cholesterol 76 mg/dl 02/27/24 04:39
Free T4 1.64 ng/dl (0.78-2.19) 02/27/24 04:39
02/26/24
10:39
Pgp-Z-Aoaulezpbxj Pept 99.0
LAB Results
02/26/24 02/26/24 02/26/24
10:39 14:23 15:23
Troponin I 0.142 H* 2.260 H* D Cancelled
02/26/24 02/26/24 02/26/24
18:23 18:30 19:38
Troponin I Cancelled Cancelled 2.010 H*
02/26/24
21:23
Troponin I Cancelled
Physical Exam
Constitutional: No acute distress
Cardiovascular: Rhythm & rate is regular, Pedal edema is absent, JVD pressure is normal, Systolic murmur absent and Diastolic murmur absent
Respiratory: Respiratory effort normal, Lungs clear to auscul., Wheeze Absent, Crackles Absent and Rhonchi Absent
Neuro/Psych: AO x 3
Data Reviewed
-
Date of Service: February 29, 2024
EKG: Other (tele sinus)
[2024-02-29] MEDS: DECADRON 4 MG IV ×3 (09:07→22:38)
[2024-02-29] MEDS: NICODERM TRANSDERMAL 21 MG TRANSDERM (09:07)
[2024-02-29] MEDS: LOW STRENGTH ASPIRIN 81 MG PO (09:08)
[2024-02-29] MEDS: MUCINEX 600 MG PO ×2 (09:08→19:56)
[2024-02-29] MEDS: SYNTHROID 75 MCG PO (09:08)
[2024-02-29] MEDS: NEURONTIN 300 MG PO ×2 (09:08→19:56)
--- NOTE | 2024-02-29 11:48 | PN.CDI ---
CDI
- -
CDI:
Physician Documentation Request
Admit Date: 02/26/24 13:12
Dear Doctor Nicholas,
Patient admitted for COPD exacerbation.
Laboratory Tests
02/26/24 02/27/24 02/28/24 02/29/24
10:39 04:39 13:13 05:46
Sodium 134 L 132 L 130 L 128 L
Based on the above, could you clarify in the progress notes, the appropriate diagnosis, if significant, that supports the above abnormalities and additional evaluation, monitoring and/or treatment rendered:
Hyponatremia
Abnormal lab value insignificant
Other
Use of terms such as suspected, likely, concern for, or probable (associated with a specific diagnosis that is being evaluated, monitored, or treated as if it exists) are acceptable and can be coded in the inpatient setting, when documented at the
time of discharge.
Thank you,
Ritu Prather RN, BSN
CDI Specialist
Available via [place] text
Please use your independent medical judgment in providing your response.
[2024-02-29 11:49] VITALS: BP 123/71
--- NOTE | 2024-02-29 12:53 | W.PN.HOSP.TC ---
Today's Communication/Plan
-
Monitor vital signs and see plan
Plan for Cardiac catheterization today
Heparin drip
cw duonebs,steroids
check urine and serum studies for hyponatremia
Assessment / Plan
Assessment / Plan
NSTEMI
-No previous history of cardiac issues. Patient active smoker and high risk
-Troponin elevated 0.14>2.1>2
-Some ST depression in lead to 3 aVF,
-Currently on heparin drip and got asa 325mg x1 in ER
-on asa/statin/heparin drip at this point
-cardio involved for further help; echo 02/27 with EF 55 to 60%, RCA territory hypokinesis. Plan for cardiac catheterization 02/28
COPD exacerbation
Acute hypoxic resp insuff
-Chest examination very clear except some minimal wheezing
-CXR clear
-Current active tobacco user
-Started on IV steroids and nebulizer therapy
Hyponatremia
Monitor; check urine and serum studies
Tobacco use
-nicotine patch
Hypothyroidism
Essential hypertension
History of left total hip replacement
Restless leg syndrome
Neuropathy
Full code
General: No Apparent Distress and Comfortable
HEENT: Negative Oxygen
Respiratory: Clear to Auscultation
Cardiac: Regular Rhythm and S1/S2; Negative Murmur or Rub
GI: Soft, Nontender, Nondistended and Normal Bowel Sounds
Musculoskeletal: No Edema
Neuro: Awake, Alert, Oriented, No Motor Deficits and Nonfocal/Grossly Intact
Psych: Calm
I spent a total of 52 minutes with the patient or on the floor. More than 50% of this time involved counseling and coordination of care.
Anticipated Discharge: 24 - 48 hours
Subjective/Interval History
-
Date of Service: February 29, 2024
denies pain
Objective Data
-
Labs:
Laboratory Results
02/29/24 02/29/24
05:46 05:47
WBC 10.6
Hgb 12.0
Hct 34.0 L
Plt Count 300
APTT 86.4 H
Sodium 128 L
Potassium 4.2
Chloride 100
Carbon Dioxide 19 L
BUN 15
Creatinine 0.6
Glucose 120 H
Calcium 9.1
Vital Signs:
Vital Signs
Temp Pulse Resp BP Pulse Ox
98.4 F 88 18 123/71 98
02/29/24 11:50 02/29/24 11:50 02/29/24 11:50 02/29/24 11:49 02/29/24 11:50
I&O
02/28/24 02/29/24 03/01/24
06:59 06:59 06:59
Intake Total 1220 / 1220 720 / 720
Balance 1220 / 1220 720 / 720
[2024-02-29] MEDS: DUONEB INH (15:23)
[2024-02-29 15:42] VITALS: BP 111/66
--- NOTE | 2024-02-29 15:47 | ITS.CL.CATH ---
[facility] [employer] - Catheterization
Cardiac Catheterization
Procedure Report:
CARDIAC CATHETERIZATION REPORT
Date of Procedure: 02/29/2024
Referring: Karla Taylor MD
Indication: Severe dyspnea and patient with severe COPD and elevated troponin
HEMODYNAMIC DATA
AO: 114/55
LV: 114/10
LEFT VENTRICULOGRAPHY: Focal area of severe inferior hypokinesis with EF 51%
CORONARY ANGIOGRAPHY
Dominance: Right
Left Main: Normal
LAD: Normal
Circumflex: Normal
RCA: Trivial luminal irregularities
Closure Device: None-the procedure was performed via the right radial artery. The Russel's test was normal prior to the procedure.
Radiation (mGy): 24.9
DAP (cm2.Gy): 2.0
Fluoroscopy time: 1.3 minutes
CONCLUSIONS
1: Focal area of inferior hypokinesis with EF 51%
2: No significant CAD
Copy to: Karla Taylor MD, Demarco Kapoor MD
Arjun Hyatt MD, [facility], [facility]
[2024-02-29] MEDS: LIPITOR 40 MG PO (16:30)
[2024-02-29 17:00] LABS: Osmolality Urine 490 mOsm/kg (300-900)
[2024-02-29 17:40] LABS: Osmolality Serum 274 mOsm/kg (275-300)
[2024-02-29 17:58] LABS: Urine Sodium 44 mmol/L (30-90)
[2024-02-29 19:30] VITALS: BP 131/72
[2024-02-29] MEDS: OSCAL CAL 500 500 MG PO (19:56)
[2024-02-29] MEDS: TYLENOL 650 MG PO (20:01)
--- NOTE | 2024-02-29 20:53 | PTCARENOTE ---
Bed alarm in place. Pt still forgetful at times. R radial dressing CDI. plan of care discussed- pt not interested in education. SR on the monitor.
[2024-02-29 22:28] VITALS: BP 136/78
[2024-02-29 22:30] LABS: Glucose - Point of Care 138 mg/dl (70-99)
--- NOTE | 2024-03-01 03:44 | DOWNTIME ---
There was a [employer] Client Residential Living Assistant Downtime on 03/01/2024 from 0100 to 03/01/2024 at 0337. Downtime documentation of patient's care, including medication administrations, has been reconciled in the electronic record per guidelines. Refer to the
patient's paper chart under the miscellaneous tab to see printed paper medication records and downtime forms.
[2024-03-01 05:13] VITALS: BP 143/86
[2024-03-01 05:33] VITALS: BMI 18.9
[2024-03-01 05:38] LABS: Hematocrit 32.2 % (37.0-47.0); Hemoglobin 11.5 g/dL (12.0-16.0); Mean Corp Hgb Conc. 35.7 g/dL (33.0-37.0); Mean Corpuscular Hgb 31.9 pg (27.0-31.0); Mean Corpuscular Volume 89.2 fL (81.0-99.0); Mean Platelet Volume 9.8 fL (7.4-10.4); Platelet Count 307 10^3/uL (130-400); Red Blood Cell Count 3.61 10^6/uL (4.20-5.40); Red Cell Dist. Width 12.6 % (11.5-14.5); White Blood Cell Count 9.1 10^3/uL (4.8-10.8)
[2024-03-01 06:06] LABS: Blood Urea Nitrogen 17 mg/dl (7-17); Calcium 9.3 mg/dl (8.4-10.2); Carbon Dioxide 18 mmol/L (22-30); Chloride 103 mmol/L (98-107); Estimated Creatinine Clearance 59 ml/min; Glucose 110 mg/dl (70-99); Potassium 4.3 mmol/L (3.5-5.1); Sodium 131 mmol/L (135-145); eGFR > 60.00
[2024-03-01 07:26] VITALS: BP 126/85
[2024-03-01] MEDS: PULMICORT 0.5 MG INH (07:30)
[2024-03-01] MEDS: DUONEB 3 ML INH ×2 (07:30→11:28)
--- NOTE | 2024-03-01 08:51 | W.PN.CD ---
Today's Communication / Plan
-
stable for discharge froma cardiology standpooinjt
continue ASA .
follow up in our office in 2-4 weeks
Impression / Plan
-
73-year-old woman with history of COPD presented with shortness of breath with COPD exacerbation and is noted to have mild troponin leak.
Troponin elevation---Type 2
-troponin peaked to 2.2,
- inferior hypokinesis ( mid inferior ) exact etiology and timing of wall motion unclear. last echo was 4 years ago. troponin not proportional to wall motion-
- cath 02/29/24. no obstructive disease. cath site fine
- continue ASA
Acute respiratory failure
- improving
-Likely secondary to acute COPD exacerbation.
-Treatment as per primary team. Currently on DuoNeb, steroid, Pulmicort.
-Antibiotic as per primary team.
-Rule out upper respiratory tract infection.
ECHO:02/19/24
CONCLUSIONS
Normal LV size and function.
LVEF is 55 to 60% by visual estimation. RCA territory hypokinesis.
Stage I diastolic dysfunction suggestive of abnormal relaxation.
Normal right ventricular size and function.
Mild tricuspid regurgitation.
Estimated pulmonary artery pressure of 26 mmHg, assuming a right atrial
pressure of 3 mmHg.
Compared to prior from August 03, 2020, RCA territory hypokinesis is new.
Subjective:
feeling better just wants a cup of coffee.
Physical Exam
Vital Signs/Labs
Vital Signs
Temp Pulse Resp BP Pulse Ox
98.0 F 77 16 126/85 95
03/01/24 07:23 03/01/24 07:33 03/01/24 07:33 03/01/24 07:26 03/01/24 07:33
02/29/24 03/01/24 03/02/24
06:59 06:59 06:59
Actual Weight 43.5 kg 43.8 kg
03/01/24 05:23
03/01/24 05:23
APTT 86.4 Sec (23.4-35.0) H 02/29/24 05:46
Triglycerides 48 mg/dl (10-149) 02/27/24 04:39
LDL Cholesterol, Calc 126 mg/dl 02/27/24 04:39
VLDL Cholesterol, Calc 9 mg/dl (0-30) 02/27/24 04:39
HDL Cholesterol 76 mg/dl 02/27/24 04:39
Free T4 1.64 ng/dl (0.78-2.19) 02/27/24 04:39
02/26/24
10:39
Hdd-U-Flsnkevtkwo Pept 99.0
Physical Exam
Cardiovascular: Rhythm & rate is regular
Respiratory: Wheeze Absent and Rhonchi Absent
GI: Soft
Neuro/Psych: Alert
Other: Other (cath site is fine)
Data Reviewed
-
Date of Service: March 01, 2024
Medical Decision Making: Reviewed Test Results
Echo: Report Reviewed by me
Medical Tests (PFT, Pathology etc): Report Reviewed by me
Labs: Labs Reviewed by me
[2024-03-01] MEDS: DECADRON 4 MG IV (09:07)
[2024-03-01] MEDS: MUCINEX 600 MG PO (09:07)
[2024-03-01] MEDS: NEURONTIN 300 MG PO (09:07)
[2024-03-01] MEDS: NICODERM TRANSDERMAL 21 MG TRANSDERM (09:07)
[2024-03-01] MEDS: SYNTHROID 75 MCG PO (09:08)
[2024-03-01] MEDS: OSCAL CAL 500 500 MG PO (09:08)
[2024-03-01] MEDS: FLUSH (NSS) 3 FLUSH IV (09:08)
--- NOTE | 2024-03-01 09:35 | PTCARENOTE ---
Received patient this morning resting in bed, asked for assistance to ambulate to the bathroom using her quad cane. States her breathing feels much better. Resting comfortably, call kitchen in reach. Patient to be seen by PT/OT.
[2024-03-01 09:59] VITALS: BP 140/89
[2024-03-01 10:29] VITALS: BP 140/89; PULSE 86; O2SAT 96
--- NOTE | 2024-03-01 11:18 | W.PN.HOSP.TC ---
Addendum entered and electronically signed by Luis Peterson MD 03/01/24 13:35:
Underweight
Addendum entered and electronically signed by Luis Peterson MD 03/01/24 13:17:
Son updated over the phone
Time of discharge 38 minutes
Original Note:
Today's Communication/Plan
-
Monitor vital signs and see plan
Changed to oral prednisone with taper
Continue with aspirin
Discharge today if does well with physical therapy
Called son, left voicemail
Assessment / Plan
Assessment / Plan
Troponin elevation, likely type II
-No previous history of cardiac issues. Patient active smoker and high risk
-Troponin elevated 0.14>2.1>2
-Some ST depression in lead to 3 aVF,
-on asa/statin, now off hep gtt
-cardio involved for further help; echo 02/27 with EF 55 to 60%, RCA territory hypokinesis. s/p cardiac catheterization 02/28 without significant obstructive disease. Patient will follow-up with cardiology outpatient. Cardiology wants to continue
aspirin
COPD exacerbation
Acute hypoxic resp insuff
-Chest examination very clear except some minimal wheezing
-CXR clear
-Current active tobacco user
-Change IV steroids to oral prednisone with taper.
Hyponatremia
Monitor; improving
Tobacco use
-nicotine patch
Hypothyroidism
Essential hypertension
History of left total hip replacement
Restless leg syndrome
Neuropathy
Full code
General: No Apparent Distress and Comfortable
HEENT: Negative Oxygen
Respiratory: Clear to Auscultation
Cardiac: Regular Rhythm and S1/S2; Negative Murmur or Rub
GI: Soft, Nontender, Nondistended and Normal Bowel Sounds
Musculoskeletal: No Edema
Neuro: Awake, Alert, Oriented, No Motor Deficits and Nonfocal/Grossly Intact
Psych: Calm
Anticipated Discharge: Today
Subjective/Interval History
-
Date of Service: March 01, 2024
denies pain
Objective Data
-
Labs:
Laboratory Results
03/01/24
05:23
WBC 9.1
Hgb 11.5 L
Hct 32.2 L
Plt Count 307
Sodium 131 L
Potassium 4.3
Chloride 103
Carbon Dioxide 18 L
BUN 17
Creatinine 0.6
Glucose 110 H
Calcium 9.3
Vital Signs:
Vital Signs
Temp Pulse Resp BP Pulse Ox
98.0 F 77 16 126/85 95
03/01/24 07:23 03/01/24 07:33 03/01/24 07:33 03/01/24 07:26 03/01/24 07:33
I&O
02/29/24 03/01/24 03/02/24
06:59 06:59 06:59
Intake Total 720 / 720 240 / 240
Output Total 400 / 400
Balance 720 / 720 -400 / -400 240 / 240
[2024-03-01 11:40] VITALS: BP 145/83
[2024-03-01 12:38] VITALS: BP 111/88; BP 129/94; PULSE 87
--- NOTE | 2024-03-01 12:49 | W.DCSUMMARY ---
Discharge Summary
Discharge Data
Date of Admission: 02/26/24
Date of Discharge: 03/01/24
-
Pending Results: No
Hospital Course
73-year-old female with past medical history of hypothyroidism, essential hypertension, restless leg syndrome, neuropathy, COPD came to the hospital with shortness of breath and elevated troponin along with EKG changes. Patient was seen by
cardiology throughout hospitalization. Initially patient was started on heparin drip. Echocardiogram was done which showed EF of 55 to 60%, RCA territory hypokinesis. Given these findings patient was taken for cardiac catheterization on 02/28
which did not show any significant obstructive cardiac disease. Telecommunications Line Mechanic recommended patient to continue aspirin. He was determined that patient elevated troponin was likely type II PR related. She also had COPD exacerbation for which she was
treated with IV steroids along with nebulizers. On discharge patient steroids was changed to oral prednisone with taper. Once patient symptoms continue to improve, she was then discharged home with instructions to follow-up with all her physicians
outpatient.
Discharge Plan
-
Patient Disposition: Home (Routine Discharge)
Discharge Diagnosis/Procedures: Type 2 PR s/p Cardiac catheterization
COPD exacerbation
Hyponatremia
Diet: Low Cholesterol and 2 Gram Sodium
Activity: As tolerated
Driving Restrictions: No driving for 24 hours
Stand Alone Forms: DC Instructions- Cath/EP Lab
Referrals:
Evelyn Felix NP [Specified Professional Personl] - 03/21/24 11:00 am
Messi Cooper MD [Active] -
Demarco Kapoor MD [Family Provider] - in less than 1 week
Prescriptions:
New
atorvastatin 40 mg Tablet
40 mg PO QPM Qty: 30 0RF
nicotine 21 mg/24 hr Patch 24 Hour
21 mg transdermal DAILY Qty: 30 0RF
guaifenesin 600 mg Tablet Extended Release 12hr
600 mg PO Q12 Qty: 14 0RF
prednisone 10 mg Tablet
See Rx Instructions .ROUTE .COMPLEX Qty: 18 0RF
Rx Instructions:
Take By Mouth:
30 mg daily x3 days,
20 mg daily x3 days, 10 mg daily x3 days.
aspirin 81 mg capsule
81 mg PO DAILY Qty: 30 0RF
Continued
levothyroxine 75 mcg Tablet
75 mcg PO DAILY
calcium carbonate 500 mg calcium (1,250 mg) Tablet
500 mg PO BID
gabapentin 300 mg Capsule
300 mg PO BID
Patient Comments:
02/26/2024, pt. takes with her Ibuprofen.
cholecalciferol (vitamin D3) [Vitamin D3] 50 mcg (2,000 unit) Tablet
50 mcg PO DAILY
Anoro Ellipta 62.5-25 mcg/actuation Blister With Device
2 inh INHALATION R DAILY
cyanocobalamin (vitamin B-12) 2,500 mcg Tablet
2,500 mcg PO DAILY
flaxseed oil 1,000 mg Capsule
1,000 mg PO BID
ascorbic acid (vitamin C) [Vitamin C] 500 mg Tablet
500 mg PO DAILY PRN (Reason: supplement)
ibuprofen 200 mg Tablet
400 mg PO BID
Patient Comments:
02/26/2024, pt. takes with her Gabapentin.
Artificial Tears (PF) Dropperette
1 drp LEFT EYE DAILYPRN PRN (Reason: dry eye)
albuterol sulfate 90 mcg/actuation HFA aerosol inhaler
2 puff inhalation R Q4HPRN PRN (Reason: shortness of breath or wheezing)
Discharge Orders:
Discharge Patient (As Directed); Ordered 03/01/24
Ordered By: Luis Peterson
Care Plan Goals
Care Plan Goals:
Problem: Readiness for enhanced knowledge related to diagnosis and treatment plan
Goal: Understand your diagnosis and treatment plan needs, including medications if applicable.
Instructions: Know your diagnosis, underlying causes and treatment plan options, including medications if applicable. Consult with your health care team to learn about your diagnosis and treatment plan, including medications if applicable.
Discharge Date and Time
Discharge Date/Time: 03/01/24 14:21
Print Language: ECUADOREAN
[2024-03-01] MEDS: ASPIR LOW (ENTERIC COATED) 81 MG PO (13:14)
--- NOTE | 2024-03-01 13:28 | PN.CDI ---
CDI
- -
CDI:
Physician Documentation Request
Admit Date: 02/26/24 13:12
Dear Doctor Nicholas,
Patient admitted for CT.
Height: 5'
Weight: 96 lbs
Selected Entries
02/27/24
06:00 02/29/24
05:52 03/01/24
05:33
Body Mass Index (BMI) 15.7 15.5 18.9
If possible, please provide an associated diagnosis related to the abnormal BMI, such as:
Underweight
Cachectic
Abnormal BMI is not significant
Other
BMI < or = to 19.9
Underweight
Weight Loss
Cachectic
Anorexia
Use of terms such as suspected, likely, concern for, or probable (associated with a specific diagnosis that is being evaluated, monitored, or treated as if it exists) are acceptable and can be coded in the inpatient setting, when documented at the
time of discharge.
Thank you,
Ritu Prather RN, BSN
CDI Specialist
Available via [place] text
Please use your independent medical judgment in providing your response.
--- NOTE | 2024-03-01 13:57 | PTCARENOTE ---
Patient seen by PT and is ok for discharge to home. Reviewed discharge instructions and follow up appointments/medications with the patient and her son Alfredo and they state their understanding. Patient discharged home with her sons.
== END 2024-03-01 14:21 | disposition home or self-care (01) | DRG 190 ==
LOC: IVU 13:12
PROVIDERS: Internal Medicine Cardiovascular Disease; Nurse Practitioner Family; Physician Assistant Medical; ADMITTING PHYSICIAN Hospitalist; ATTENDING PHYSICIAN Internal Medicine; CONSULT PHYSICIAN Internal Medicine Cardiovascular Disease; EMERGENCY PHYSICIAN Emergency Medicine; FAMILY PHYSICIAN Family Medicine
PROC: 4A023N7 Measurement of Cardiac Sampling and Pressure, Left Heart, Percutaneous Approach (ICD-10-PCS; 2024-02-29)
PROC: B2151ZZ Fluoroscopy of Left Heart using Low Osmolar Contrast (ICD-10-PCS; 2024-02-29)
PROC: B2111ZZ Fluoroscopy of Multiple Coronary Arteries using Low Osmolar Contrast (ICD-10-PCS; 2024-02-29)
DX: J44.1 Chronic obstructive pulmonary disease with (acute) exacerbation (principal); I21.A1 Myocardial infarction type 2; J96.00 Acute respiratory failure, unspecified whether with hypoxia or hypercapnia; E87.1 Hypo-osmolality and hyponatremia; Z68.1 Body mass index [BMI] 19.9 or less, adult; F17.210 Nicotine dependence, cigarettes, uncomplicated; E03.9 Hypothyroidism, unspecified; I10 Essential (primary) hypertension; R63.6 Underweight; Z11.52 Encounter for screening for COVID-19
CPT/HCPCS: 71046; 80048; 80053; 80061; 81003; 82962; 83036; 83880; 83930; 83935; 84300; 84439; 84443; 84484; 85025; 85027; 85730; 87502; 87811; 93005; 93306; 93458; 94640; 96365; 96366; 96375; 97116; 97161; 97166; 99291; C1894; Q9967

== ENCOUNTER 2024-03-17 14:46 | Inpatient (IN) | payer OTHER, SELFPAY ==
[2024-03-15] VITALS (9 sets, daily range): BP systolic 120–138; BP diastolic 61–98; BMI 19.7; BMI 19.2
[2024-03-15 10:05] LABS: Glucose - Point of Care 111 mg/dl (70-99)
--- NOTE | 2024-03-15 10:31 | ED.CVA ---
History of Present Illness
General
Chief Complaint: CVA/TIA Symptoms
Source: patient
Exam Limitations: none
Time Seen by Provider: 03/15/24 10:12
Nursing documentation reviewed up to this point in time: agreed with
Onset of Stroke Symptoms
Onset of symptoms known: Yes
Date of onset of symptoms: 03/15/24
Date last time pt seen normal: 03/14/24
Time last time pt seen normal: 23:00
History of Present Illness
History of Present Illness:
73-year-old female presents emergency department after waking up confused, with difficulty speaking. She was last seen normal at 11 PM last night.
Past History
Past History
ED Past Medical History: CAD, HTN, Hypothyroidism and Other (PMR, temporal arteritis)
ED Past Surgical History: and Orthopedic
Social History
Tobacco: Smoker
Alcohol: None
Drug: None
Personal:
Living: with family
Review of Systems
Review of Systems
Allergies reviewed?: Yes
All Other Systems: Not applicable
Constitutional: Reports no symptoms
EENT: Reports no symptoms
Respiratory: Reports no symptoms
Cardiac: Reports no symptoms
ABD/GI: Reports no symptoms
: Reports no symptoms
Musculoskeletal: Reports no symptoms
Skin: Reports no symptoms
Neurological: Reports other (Confusion, difficulty speaking)
Endocrine: Reports no symptoms
Hematologic/Lymphatic: Reports no symptoms
Psychiatric: Reports no symptoms
Phy Exam
Physical Exam
Physical Exam:
Physical Exam
General: Afebrile
Neck: supple. no meningeal signs. normal posterior pharynx
Heart: s1/s2 regular rate and rhythm, no murmur. equal radial
pulses.
HEENT: Pupils equal round reactive to light, EOMI
Lungs: no acute respiratory distress. clear bilaterally
Abdomen: normal bowel sounds. not tender. no CVAT
Neuro: alert and oriented. No motor deficits, mild dysarthria
Skin: no rash
Psychiatric: well kept. interactive and cooperative
Extremities: no edema. no calf tenderness. negative homans. good distal pulses
NIH Stroke Score
Level of Consciousness: 0 - Alert
LOC questions: 0-Answers both correctly
LOC Commands: 0-Performs both correctly
Best Gaze: 0-Normal
Visual Giles: 0=Normal, no visual loss
Facial palsy: 0=Normal, symmetrical
Motor - Right Arm: 0=No drift 10 seconds
Motor - Left Arm: 0=No drift 10 seconds
Motor - Right Le-No drift 5 seconds
Motor - Left Le-No drift 5 seconds
Limb Ataxia: 0-Absent
Sensation: 0-Normal
Best Language: 0-No aphasia
Dysarthria: 1-Mild slurring
Extinction and Inattention: 0-No abnormality
Total Score:: 1
Scores
NIH Stroke Score
Level of Consciousness: 0 - Alert
LOC Questions: 0-Answers both correctly
LOC Commands: 0-Performs both correctly
Best Horizontal Gaze: 0-Normal
Visual Giles: 0=Normal, no visual loss
Facial Palsy: 0=Normal, symmetrical
Motor - Right Arm: 0=No drift 10 seconds
Motor - Left Arm: 0=No drift 10 seconds
Motor - Right Le-No drift 5 seconds
Motor - Left Le-No drift 5 seconds
Limb Ataxia: 0-Absent
Sensation: 0-Normal
Best Language: 1-Mild aphasia
Dysarthria: 1-Mild slurring
Extinction and Inattention: 0-No abnormality
Total Score:: 2
Thrombolytic Contraindication
Inclusion and Exclusion criteria reviewed: Yes
Reasons for NON-Tx with Thrombolytics ABSOLUTE Exclusions: Greater than 4.5 hrs from onset of sxs
IAT Contraindications: NIHSS < 6
Course
Orders/Labs/Results
Orders:
Orders
03/15/24 10:22
Complete Blood Count/With Diff Urgent
03/15/24 10:30
CT Head W/o Iv Contrast Urgent
Comment:
Reason For Exam: dysarthria, confusion
03/15/24 10:31
Electrocardiogram (*1) Stat
Reason for Study: TIA/Stroke
Electrocardiogram (*1) Urgent
Reason for Study: TIA/Stroke
EKG- Treatment ONCE
03/15/24 11:23
MR Brain Without Contrast Routine
Comment:
Reason For Exam: stroke
Recent pill cam endoscopy?: No
03/15/24 11:24
Speech Therapy Eval & Treat Routine
Treatment: Aphasia
03/15/24 11:50
Comprehensive Metabolic Panel Urgent
03/15/24 12:39
MA [place] [facility] [place] Routine
Comment:
Reason For Exam: intracranial stenosis
Recent pill cam endoscopy?: No
MA Neck With Contrast Routine
Comment:
Reason For Exam: stenosis
Recent pill cam endoscopy?: No
03/15/24 13:18
Admit/Transfer Patient As Directed
Co-Sign Provider:
Level of Care: Observation services
Assign to:: Telemetry
Physician / Group: Lane
Diagnosis: TIA/CVa
Reason for Telemetry: CVA/TIA
Date to Stop Telemetry: 03/18/24
Time to Stop Telemetry: 11:00
03/15/24 13:20
Code Status As Directed
Resuscitation Status: Full Code
03/18/24 11:00
DC Protocol for Telemetry ONCE
Abnormal Lab Results
03/15/24 03/15/24 03/15/24
10:04 10:22 11:50
RBC 3.77 L 10^6/uL
(4.20-5.40)
Hct 34.3 L %
(37.0-47.0)
MCH 32.1 H pg
(27.0-31.0)
Sodium 131 L mmol/L
(135-145)
Total Protein 5.5 L g/dl
(6.3-8.2)
POC Glucose 111 H mg/dl
(70-99)
03/15/24 10:22
03/15/24 11:50
Vital Signs
Initial and Last Documented VS:
Initial Vital Signs
Temp Pulse Resp BP Pulse Ox
98.3 F 74 18 124/70 96
03/15/24 10:02 03/15/24 10:02 03/15/24 10:02 03/15/24 10:02 03/15/24 10:02
Last Documented Vital Signs
Temp Pulse Resp BP Pulse Ox
98.3 F 66 16 123/68 98
03/15/24 10:02 03/15/24 12:00 03/15/24 12:00 03/15/24 12:00 03/15/24 12:00
MDM/Problems Addressed
Differential Diagnosis Includes:
CVA
MDM/Problems Addressed:
73 yo female with CVA. Admit to hospitalist. Continue aspirin and Plavix. Discussed with neurology to see patient.
Chronic conditions affecting care: HTN and COPD
Acute Exacerbation and/or Progression of Chronic Illness: HTN and COPD
*Radiology
Radiology exam reviewed: radiology read reviewed (CT head no acute findings)
*Pulse Oximetry
Patient hypoxic: no
*EKG
Interpreted by ED Provider?: Yes
EKG Intrepretation Date: 03/15/24
EKG Intrepretation Time: 11:01
Interpretation: abnormal
Comparison EKG: changes noted
Heart Rate: 64
Rate: normal
Rhythm: sinus
[place]: normal axis
Interval: normal interval
QRS Pattern: normal QRS
Ischemia: non-specific ST changes
*Insurance Salesperson Interpretation
Rate: normal
Interpretation: normal
Heart Rate: 65
Rhythm: sinus
*Critical Care Note
Total Time (30-74mins, 75-104mins- exclusive of procedures): Not Applicable
Data Reviewed
Prescriptions/Medications Considered But Not Given:
TNK not indicated
Patient Management
Social determinants of health affecting care: Living situation
Discussion with other providers: Hospitalist and Duty Manager (Neurology)
Escalation/DeEscalation of care consider admission/obs:
admit indicated
ED Attending Note
-
Portions of this chart may have been created with voice recognition software.� Occasional wrong word or��sound alike� substitutions may have occurred due to the inherent limitations of voice recognition software.
Discharge Plan
Departure
Patient Disposition: Admit
Date of Disposition: 03/15/24
Time of Disposition: 12:02
Admit to: Telemetry
Presentation/result/management discussed w/ accepting MD/DO: Hospitalist
Patient with high blood pressure during this ER visit?: Yes
Condition: Fair
Discharge Problem:
Acute CVA (cerebrovascular accident)
Interventions
Interventions:
*Risk Screen - Suicide Last Done: 03/15/24 10:30
*General Assessment Last Done: 03/15/24 10:30
*Neglect/Abuse Screening Last Done: 03/15/24 10:30
ED- Pulmonary Assessment Last Done: 03/15/24 10:30
ED- Neurological Assessment Last Done: 03/15/24 10:30
ED- Cardiac Assessment Last Done: 03/15/24 10:30
ED Swallowing Screen Last Done: 03/15/24 11:59
[2024-03-15 10:35] LABS: % Basophils 0.7 % (0-2); % Eosinophils 5.1 % (0-6); % Immature Granulocytes 0.5 % (0-0.5); % Lymphocytes 26.7 % (20.5-51.1); % Monocytes 7.7 % (1.7-9.3); % Neutrophils 59.3 % (42.2-75.2); Absolute Basophils 0.1 10^3/uL (0-0.2); Absolute Eosinophils 0.4 10^3/uL (0-0.7); Absolute Lymphocytes 2.2 10^3/uL (1.2-3.4); Absolute Monocytes 0.6 10^3/uL (0.1-0.6); Absolute Neutrophils 4.9 10^3/uL (1.4-6.5); Hematocrit 34.3 % (37.0-47.0); Hemoglobin 12.1 g/dL (12.0-16.0); Mean Corp Hgb Conc. 35.3 g/dL (33.0-37.0); Mean Corpuscular Hgb 32.1 pg (27.0-31.0); Mean Platelet Volume 9.7 fL (7.4-10.4); Nucleated Red Blood Cells % 0 %; Platelet Count 259 10^3/uL (130-400); Red Blood Cell Count 3.77 10^6/uL (4.20-5.40); Red Cell Dist. Width 12.8 % (11.5-14.5); White Blood Cell Count 8.3 10^3/uL (4.8-10.8)
--- NOTE | 2024-03-15 11:11 | CON.NEURO4 ---
Addendum entered and electronically signed by Nathan Estes MD 03/15/24 16:19:
Studies reviewed.
I have personally examined the patient. I reviewed and agree with the GENERAL OFFICE ASSISTANT's Note.
My addenda:
Awake, alert, interactive. No acute distress.
Speech reduced speed of output as well as reduced quantity.
Follows 2-step requests w/ difficulty. No tremor.
Extra-ocular movements grossly intact.
Facial movements full and symmetric. Hearing intact to normal conversational volume.
Normal UE movements bilaterally.
Neck: full ROM.
Chest: no dyspnea
Heart: no JVD
Ext: (-) Clubbing, (-) Cyanosis, (-) Edema
IMPRESSIONS/RECOMMENDATIONS:
Abrupt onset of aphasia and generalized weakness, in a patient utilizing aspirin and having had a recent COPD exacerbation requiring hospitalization
Differential diagnosis includes acute onset ischemic stroke producing symptoms
Provide dual antiplatelet therapy including aspirin and loading dose of clopidogrel. The goal of clopidogrel use would be approximately 21 days of use before discontinuance and to maintain aspirin indefinitely
Permissive hypertension until 03/16/2024 at 0900 hrs. then normotension
Continue atorvastatin 40 mg that was initiated 2 weeks ago
Will follow MRI and MRA results
Rehabilitation evaluations
D/W patient / family
Will continue to follow patient.
Original Note:
Documented by User: Tanya Mchugh NP 03/15/24 14:39
Consultation - Neurology 4
-
CONSULTING PHYSICIAN: Nathan Estes MD
REFERRING PHYSICIAN: ER/Dr. Sosa
DICTATED BY: HUMAIRA Ramirez
DATE/TIME OF REQUEST: 03/15/24
DATE/TIME OF CONSULTATION: 03/15/24
Reason for Consultation: Aphasia, dysarthria, weakness
History of Present Illness:
This is a 73-year-old right-handed female who has presented to the hospital with report of dysarthria, aphasia, and generalized weakness. Patient was recently hospitalized here from 02/26/24-03/01/24 with COPD exacerbation, elevated troponin, and EKG
changes with negative cardiac catheterization. Patient's son at bedside reports that she has been doing well since discharge. He saw the patient last night (03/14/24) at 2300 at her baseline before he went to bed. At 0400 today he reports that he got
up to check on her and she was sleeping. At 0900 she woke up and he reports her speech was abnormally slurred, her verbal responses were unusually slow, and she had generalized weakness and she was unable to walk to the bathroom without his
assistance. He was concerned she had a stroke and brought her to the ER for evaluation. NIHSS is 2 for mild dysarthria and right facial drooping. CT head was obtained on arrival and is negative for any acute abnormalities but is suggestive of a
small old right external capsule lacunar infarct. She is not a candidate for TNK/IAT due to unknown time of onset of symptoms and low NIHSS. Patient denies any headache, dizziness, swallowing difficulty, numbness, weakness, nausea, chest pain,
palpitations, and shortness of breath. She denies any known history of TIA, stroke, or similar events in the past. She was taking aspirin 81mg daily for cardiac purposes.
Past Medical History: HTN, HLD, CAD, COPD, NSTEMI, hypothyroidism, PMR, temporal arteritis, spinal stenosis, osteoporosis, neuropathy
Surgical History: x3, L THR, carpal tunnel release
Family History: Reviewed and noncontributory.
Social History: Former smoker, quit February 2024. Denies alcohol and illicit drug use.
Allergies: No known allergies.
Home Medications: See below.
Review of Symptoms:
Patient denies any fever, headache, chest pain, shortness of breath, GI or symptoms.
�Per the HPI.�All systems are reviewed negative except above.
Physical Exam:
The patient is afebrile, abdomen is nondistended, breathing is unlabored, skin is warm and dry, no edema.
NIH Stroke Scale:
I performed the NIH stroke scale on the patient on 03/15/24 at 1115. The patient scored 2 points on the NIH stroke scale assessment, which were assigned as follows: See below.
Neurologic Examination:
The patient is awake, alert and oriented x 3. She is able to follow one-step commands and answer questions appropriately. Verbal responses are slow but appropriate. Moderate dysarthria. On cranial nerve assessment, pupils are 3 mm bilateral, round
and reactive to light and accommodation. Visual giles are full. Extraocular movements are intact. There is a right facial droop. Hearing is diminished bilaterally to normal conversation volume. Tongue palate and uvula are midline.
Sternocleidomastoid strengths are full bilaterally. Motor strengths are 5/5 bilateral upper and lower extremities on medical research [place] scale. There is no drift. No involuntary movement noted. Deep tendon reflexes are 2+ bilateral upper and
lower extremities and Babinski is absent bilaterally. There was no extinction noted on double simultaneous stimulation. Coordination is intact by finger to nose bilaterally. Left arm satellites around the right.
Lab Results: See below.
Neuro Imaging:
1. CT Head 03/15/24: No acute intracranial abnormalities. Probable small old lacunar infarct in the right external capsule. Findings again seen compatible with diffuse cortical atrophy with nonspecific white matter changes as described above.
Differentials for the patient's presentation include:
1. Acute small left hemisphere ischemic infarct likely producing patient's symptoms.
Patient has the following risk factors for their symptoms: HTN, HLD, age
IV Tenecteplase/IAT candidacy: Not a candidate due to unknown onset time of symptoms and low NIHSS.
Recommendations:
-Provide loading dose of aspirin and Plavix x1 now. Initiate DAPT with aspirin 81mg and Plavix 75mg daily for 21 days starting tomorrow. After 21 days, discontinue Plavix and continue aspirin 81mg daily only, indefinitely.
-Permissive hypertension SBP<220, DBP<120 until 03/15/24 at 0900, then goal normotension.
-MRI brain noncontrast, MRA head/neck pending.
-LDL goal <70. LDL is 126. Continue atorvastatin 40mg daily that was initiated two weeks ago.
-Goal normoglycemia, hbA1c is 5.5.
-NIHSS and neurological checks per unit checks per unit guidelines.
-Provide patient with a stroke education packet.
-DVT prophylaxis.
-PT/OT/ST evaluations.
-Will follow pending results.
Discussed patient care with: Dr. Estes, the patient, patient's son
Vital Signs and Labs
-
Vital Signs and Labs:
Vital Signs
Temp Pulse Resp BP Pulse Ox
98.3 F 74 18 124/70 96
03/15/24 10:02 03/15/24 10:02 03/15/24 10:02 03/15/24 10:02 03/15/24 10:02
Lab Results
03/15/24 10:22
Sodium Cancelled 03/15/24 10:22
Potassium Cancelled 03/15/24 10:22
BUN Cancelled 03/15/24 10:22
Glucose Cancelled 03/15/24 10:22
Calcium Cancelled 03/15/24 10:22
Medications
-
Home Medications
�Medication �Instructions �Recorded
calcium carbonate 500 mg PO BID Supplement 07/15/23
cholecalciferol (vitamin D3) 50 50 mcg PO DAILY Supplement 07/15/23
mcg (2,000 unit) tablet (Vitamin
D3)
cyanocobalamin (vitamin B-12) 2,500 mcg PO DAILY Supplement 07/15/23
2,500 mcg tablet
gabapentin 300 mg capsule 300 mg PO BID Pain 07/15/23
levothyroxine 75 mcg tablet 75 mcg PO DAILY Thyroid 07/15/23
umeclidinium 62.5 mcg-vilanterol 2 inh inhalation R DAILY 07/15/23
25 mcg/actuation powdr for Lung/Breathing Issues
inhalation (Anoro Ellipta)
albuterol sulfate 90 mcg/actuation 2 puff inhalation R Q4HPRN PRN 02/26/24
aerosol inhaler shortness of breath or wheezing
ascorbic acid (vitamin C) 500 mg 500 mg PO HS 02/26/24
tablet (Vitamin C)
flaxseed oil 1,000 mg capsule 1,000 mg PO BID 02/26/24
ibuprofen 200 mg tablet 400 mg PO BIDPRN PRN mild pain 02/26/24
aspirin 81 mg tablet,delayed 81 mg PO DAILY 03/15/24
release
atorvastatin 40 mg tablet 40 mg PO HS 03/15/24
guaifenesin 600 mg tablet, 600 mg PO Q12H 03/15/24
extended release 12 hr
NIH Stroke Score
Subsequent NIH Scale
Date of Subsequent NIH Scale: 03/15/24
Time of Subsequent NIH Scale: 11:00
NIH Stroke Score
Level of Consciousness: 0 - Alert
LOC Questions: 0-Answers both correctly
LOC Commands: 0-Performs both correctly
Best Horizontal Gaze: 0-Normal
Visual Giles: 0=Normal, no visual loss
Facial Palsy: 1=Minor paralysis
Motor - Right Arm: 0=No drift 10 seconds
Motor - Left Arm: 0=No drift 10 seconds
Motor - Right Le-No drift 5 seconds
Motor - Left Le-No drift 5 seconds
Limb Ataxia: 0-Absent
Sensation: 0-Normal
Best Language: 0-No aphasia
Dysarthria: 1-Mild slurring
Extinction and Inattention: 0-No abnormality
Total Score:: 2
Modified [place] (mRS) Score
Modified [place] Scale (mRS): No significant disability. Able to carry out usual activities.
Score: 1
Alteplase Contraindication
Inclusion and Exclusion criteria reviewed: Yes
Reasons for NON-Tx with Thrombolytics ABSOLUTE Exclusions: Greater than 4.5 hrs from onset of sxs
IAT Contraindications: NIHSS < 6

Documented by User: Nathan Estes MD 03/15/24 16:16
NIH Stroke Score
NIH Stroke Score
Total Score:: 2
Modified [place] (mRS) Score
Score: 1
--- NOTE | 2024-03-15 12:05 | PTOTSP ---
Speech Language Pathology
Pt seen for clinical bedside swallow evaluation. P.O. trials of puree, regular solids, and thin liquids provided. Prolonged mastication noted. Given additional time, she was able to fully clear oral cavity. Slight R labial leakage of solids to
which pt was not sensate. Suspect cognitive status negatively impacted mastication time as pt distractible when chewing. Cough with 1/8 trials of thin liquids. REGENERATOR OPERATOR was also to complete speech/language evaluations, but pt had to use bathroom.
Will complete next visit.
Recommend:
(1) Initiate regular solids/thin liquids
(2) Aspiration precautions: sit upright, slow rate, single sips, ensure pt swallows prior to next bite/sip, check for pocketing
(3) Meds as tolerated
(4) REGENERATOR OPERATOR to continue to follow to ensure diet tolerance and for speech/language evaluations as appropriate
[2024-03-15 12:48] LABS: ALT (SGPT) 16 U/L (0-35); AST (SGOT) 21 U/L (14-36); Albumin 3.5 g/dl (3.5-5.0); Alkaline Phosphatase 68 U/L (38-126); Blood Urea Nitrogen 10 mg/dl (7-17); Calcium 8.8 mg/dl (8.4-10.2); Carbon Dioxide 25 mmol/L (22-30); Chloride 100 mmol/L (98-107); Estimated Creatinine Clearance 62 ml/min; Glucose 90 mg/dl (70-99); Sodium 131 mmol/L (135-145); Total Bilirubin 0.8 mg/dl (0.2-1.3); Total Protein 5.5 g/dl (6.3-8.2); eGFR > 60.00
--- NOTE | 2024-03-15 13:29 | HPS.HSE ---
Family Physician
-
Family Physician: Demarco Kapoor
Chief Complaint
-
Speech Difficulty
History of Present Illness
Patient is a 73-year-old female past medical history of COPD, and recent NSTEMI with negative cardiac cath who presents with speech difficulty. Patient was in her usual state of health when going to bed last evening. Upon waking this morning
family noted her to appear confused and having difficulty with her speech. Upon my evaluation she responds to yes or no questions appropriately, but response to more complex questions with nonsensical speech. Even with simple answers speech is
slow, and sometimes slurred. Patient denies focal numbness, tingling or weakness. Patient denies any prior history of stroke.
Medical History
Past Medical History
Past Medical History: Reports Other
Additional Past Medical History:
COPD
Hyperlipidemia
Hypothyroidism
Spinal Stenosis
Osteoporosis
Past Surgical History: Reports Other
Additional Past Surgical History:
Left Hip Replacement
Carpal Tunnel
x 3
Social History
Tobacco: Former Smoker (40 pack year history - Quit February 2024)
Living: With Family
Family History
Family History: Not pertinent
Allergies / Home Medications
Allergies reflects when Allergies were last updated in [facility].
Home Medications with original date entered in [facility]
Allergy/Medication List:
Allergies
Allergy/AdvReac Type Severity Reaction Status Date / Time
No Known Allergies Allergy Verified 03/15/24 10:00
Home Medications
calcium carbonate 500 mg PO BID Supplement 07/15/23
cholecalciferol (vitamin D3) 50 mcg (2,000 unit) tablet (Vitamin D3) 50 mcg PO DAILY Supplement 07/15/23
cyanocobalamin (vitamin B-12) 2,500 mcg tablet 2,500 mcg PO DAILY Supplement 07/15/23
gabapentin 300 mg capsule 300 mg PO BID Pain 07/15/23
levothyroxine 75 mcg tablet 75 mcg PO DAILY Thyroid 07/15/23
umeclidinium 62.5 mcg-vilanterol 25 mcg/actuation powdr for inhalation (Anoro Ellipta) 2 inh inhalation R DAILY Lung/Breathing Issues 07/15/23
albuterol sulfate 90 mcg/actuation aerosol inhaler 2 puff inhalation R Q4HPRN PRN shortness of breath or wheezing 02/26/24
ascorbic acid (vitamin C) 500 mg tablet (Vitamin C) 500 mg PO HS Supplement 02/26/24
flaxseed oil 1,000 mg capsule 1,000 mg PO BID Supplement 02/26/24
ibuprofen 200 mg tablet 400 mg PO BIDPRN PRN mild pain 02/26/24
aspirin 81 mg tablet,delayed release 81 mg PO DAILY Blood Clot Prevention/Tx 03/15/24
atorvastatin 40 mg tablet 40 mg PO HS High Cholesterol 03/15/24
guaifenesin 600 mg tablet, extended release 12 hr 600 mg PO Q12H Congestion 03/15/24
Review of Systems
-
A 12 point ROS was completed and negative except as noted: Yes
Constitutional: Denies Fever or Chills
Respiratory: Denies Cough or Trouble Breathing
Cardiac: Denies Chest Pain or Palpitations
Physical Exam
Vital Signs
Vital Signs
Temp Pulse Resp BP Pulse Ox
98.3 F 66 16 123/68 98
03/15/24 10:02 03/15/24 12:00 03/15/24 12:00 03/15/24 12:00 03/15/24 12:00
Physical Exam
General: Well Developed, Well Nourished and No Apparent Distress
HEENT: Anicteric and Moist mucous membranes
Respiratory: Clear and Non Labored Respirations
Cardiac: S1/S2 and Regular Rhythm
GI: Soft, Non Tender and Non Distended
Rectal: Deferred by Provider
Musculoskeletal: No Clubbing, No Cyanosis and No Edema
Skin: Warm and Dry
Neuro: Awake, Alert and Other (Speech is slow and slightly slurred, with some nonsensical speech)
Psych: Calm
Laboratory Results
-
03/15/24 10:22
03/15/24 11:50
Laboratory Results
Total Bilirubin 0.8 mg/dl (0.2-1.3) 03/15/24 11:50
AST 21 U/L (14-36) 03/15/24 11:50
ALT 16 U/L (0-35) 03/15/24 11:50
Alkaline Phosphatase 68 U/L (38-126) 03/15/24 11:50
Data Reviewed
-
CT Scan: Report Reviewed by me
Lab Data: Labs Reviewed by me
Impression/Plan
-
Expressive Aphasia
-Consult Neurology
-Continue Aspirin and Add Plavix
-Check Brain MRI with Head/Neck MRA
-FLP and HgbA1c check during admission two weeks ago - HgbA1c 5.5 - LDL 126 at which time she was started on a statin
COPD, no acute exacerbation
-Continue Anoro Ellipta
-Continue Duoneb PRN
Hypothyroidism
-Continue levothyroxine
Spinal Stenosis
-Continue gabapentin
DVT proph: SCDs
Code Status: Full Code
--- NOTE | 2024-03-15 13:41 | W.PN.UPDATE ---
Update Note
Progress Note Update
This serves as an addendum to the H&P dictated by Bri Díaz on 03/15/2024.
I saw and examined the patient.
The PIECE WORK CHECKER or PA's note was reviewed and I agree with the note.
Comment:
Patient 73 years old female history of hypertension, hyperlipidemia, hypothyroidism, COPD presented to the hospital with sudden onset of slurred speech and dysarthria/aphasia. Patient PRESTON last night prior to going to bed around 11 PM and this
morning woke up confused and only able to provide one-word answers and slow to respond. Denied focal weakness but had generalized weakness and unable to walk without assistance. Denies seizure-like activity. No fevers or chills prior to this. CT
of the head no acute intracranial abnormality and some old lacunar infarcts on right external capsule along with diffuse cortical atrophy and nonspecific white matter changes. She was previously taking aspirin and statins for cardiac reasons. She
was referred to hospitalist service for further evaluation.
Physical exam:
General: Acutely ill
HEENT: Normocephalic, Atraumatic and Moist Mucous Membranes
Respiratory: Clear to Auscultation; Negative Wheezes, Rales or Rhonchi
Cardiac: Regular Rhythm and S1/S2
GI: Soft, Nontender and Nondistended
Musculoskeletal: No Clubbing, No Cyanosis and No Edema
Neuro: Awake, Alert and Oriented, strength 4 out of 5 all 4 extremities, dysarthria present, right facial droop, rest of cranial nerves are intact.
Psych: Calm
A/P:
TIA/stroke--> out of the time window for TNKase, dual antiplatelet therapy aspirin and Plavix for least 3 weeks, statins, NIH score, plan for MRI of the brain, MRA head and neck, neurology consult. Will give further commendations based on clinical
course.
--- NOTE | 2024-03-15 15:00 | CM ---
CM reviewed medical records. CM met with patient's son in room. Son confirmed demographics. Patient lives with two sons and two granddaughters. Denies history of VN or SNF. Patient is active with her PCP. Confirmed medication coverage.
Patient's son discussed that patient has been increasingly more difficult to care for. Patient has family with her 24 hours a day. Patient's on reports that patient gets up multiple times during the evening and night. She has been falling.
Patient's son is trying to become patient's paid caregiver and has met with [employer] to discuss options. Patient does not currently have a POA.
Patient's son stated that he would be agreeable to SNF if needed on discharge and did not express a preference.
CM will continue to follow.
GARCIA letter given.
[2024-03-15 15:10] LABS: Erythrocyte Sed Rate 15 mm/hour (0-20)
[2024-03-15] MEDS: PLAVIX 300 MG PO (15:19)
[2024-03-15 16:37] LABS: TSH Reflex To Free T4 2.05 uIU/ml (0.47-4.68)
[2024-03-15 16:41] LABS: Ferritin 47.3 ng/ml (11.1-264.0)
[2024-03-15] MEDS: NON-FORMULARY ITEM 1 UNIT INH (17:10)
[2024-03-15 17:13] LABS: Folate 14.9 ng/ml (2.76-20); Vitamin B12 > 1000 pg/ml (239-931)
[2024-03-15] MEDS: NEURONTIN 300 MG PO (21:33)
[2024-03-15] MEDS: VITAMIN C 500 MG PO (21:33)
[2024-03-15] MEDS: OSCAL CAL 500 500 MG PO (21:33)
[2024-03-15] MEDS: LIPITOR 40 MG PO (21:33)
[2024-03-15] MEDS: MUCINEX 600 MG PO (21:33)
[2024-03-16] VITALS (8 sets, daily range): BP systolic 101–134; BP diastolic 60–75; PULSE 79–88; O2SAT 97
[2024-03-16] MEDS: SYNTHROID 75 MCG PO (06:11)
[2024-03-16 07:11] LABS: Hematocrit 34.2 % (37.0-47.0); Hemoglobin 11.8 g/dL (12.0-16.0); Mean Corp Hgb Conc. 34.5 g/dL (33.0-37.0); Mean Corpuscular Hgb 32.2 pg (27.0-31.0); Mean Corpuscular Volume 93.2 fL (81.0-99.0); Mean Platelet Volume 9.6 fL (7.4-10.4); Platelet Count 270 10^3/uL (130-400); Red Blood Cell Count 3.67 10^6/uL (4.20-5.40); Red Cell Dist. Width 12.6 % (11.5-14.5)
--- NOTE | 2024-03-16 07:34 | W.PN.NEURO.1 ---
Today's Communication / Plan
-
Provide dual antiplatelet therapy including aspirin and loading dose of clopidogrel. The goal of clopidogrel use would be approximately 21 days of use before discontinuance and to maintain aspirin indefinitely
Goal of normotension
Continue atorvastatin 40 mg that was initiated 2 weeks ago
Rehabilitation evaluations
Neuro Assessment/Plan
Assessment
MRI of brain findings: Small acute infarct involving the posterior superior left lenticular nucleus extending towards the left periventricular white matter at the level of the ventricular body. No Associated mass effect
IMPRESSIONS/RECOMMENDATIONS:
Abrupt onset of aphasia and generalized weakness, in a patient utilizing aspirin and having had a recent COPD exacerbation requiring hospitalization
Due to acute onset ischemic stroke producing symptoms
Plan
Provide dual antiplatelet therapy including aspirin and loading dose of clopidogrel. The goal of clopidogrel use would be approximately 21 days of use before discontinuance and to maintain aspirin indefinitely
Goal of normotension
Continue atorvastatin 40 mg that was initiated 2 weeks ago
Rehabilitation evaluations
We will follow as needed.
Subjective/Objective
Subjective Data
Date of Service: March 16, 2024
Objective Data
Vital Signs
Temp Pulse Resp BP Pulse Ox
37.1 C 76 18 119/72 96
03/16/24 03:24 03/16/24 03:24 03/16/24 03:24 03/16/24 03:24 03/16/24 03:24
Lab Results
03/16/24 06:19
Sodium 131 mmol/L (135-145) L 03/15/24 11:50
Potassium 4.0 mmol/L (3.5-5.1) 03/15/24 11:50
BUN 10 mg/dl (7-17) 03/15/24 11:50
Glucose 90 mg/dl (70-99) 03/15/24 11:50
Calcium 8.8 mg/dl (8.4-10.2) 03/15/24 11:50
Vitamin B12 > 1000 pg/ml (008-001) H 03/15/24 11:50
Patient Allergies
adhesive tape Allergy (Verified 03/15/24 15:46)
SKIN IRRITATION
[2024-03-16 07:35] LABS: Blood Urea Nitrogen 9 mg/dl (7-17); Calcium 9.1 mg/dl (8.4-10.2); Carbon Dioxide 23 mmol/L (22-30); Chloride 100 mmol/L (98-107); Estimated Creatinine Clearance 61 ml/min; Glucose 88 mg/dl (70-99); Magnesium 1.9 mg/dl (1.6-2.3); Potassium 3.8 mmol/L (3.5-5.1); Sodium 130 mmol/L (135-145); eGFR > 60.00
[2024-03-16] MEDS: NON-FORMULARY ITEM 1 UNIT INH (07:57)
[2024-03-16] MEDS: VITAMIN B-12 2500 MCG PO (08:52)
[2024-03-16] MEDS: OSCAL CAL 500 500 MG PO ×2 (08:53→21:16)
[2024-03-16] MEDS: MUCINEX 600 MG PO ×2 (08:53→21:16)
[2024-03-16] MEDS: NEURONTIN 300 MG PO ×2 (08:53→21:16)
[2024-03-16] MEDS: VITAMIN D3 (cholecalciferol) 50 MCG PO (08:53)
[2024-03-16] MEDS: PLAVIX 75 MG PO (08:53)
[2024-03-16] MEDS: ASPIR LOW (ENTERIC COATED) 81 MG PO (08:53)
--- NOTE | 2024-03-16 09:10 | PTOTSP ---
Speech Language Pathology
Pt seen for speech and language evaluations. Pt with moderate dysarthria. Language evaluated via the Quick Aphasia Batter (QAB), form 1. Pt with an overall score of 8.90, WNL. Pt scored WNL on majority of subtests but scored mild on sentence
comprehension (8.33) and word finding (7.75).
Pt also seen for dysphagia tx. RN reported cough with meds this morning. At rest, saliva noted to be pooling in anterior sulcus. Question whether pt sensate to this. She was able to clear saliva when FINANCIAL OPERATIONS CLERK brought to her attention. Seen with
regular solids and thin liquids. Slightly prolonged mastication noted but this was functional given additional time. No overt signs of aspiration. However, occasional coughing has been noted. With acute CVA, recommend further instrumental
swallowing assessment.
Recommend:
(1) VSE 7/5
(2) Continue regular solids/thin liquids pending VSE
(3) Aspiration precautions: sit upright, slow rate, single sips
(4) Trial meds whole in puree
(5) FINANCIAL OPERATIONS CLERK to continue to follow post acute CVA to address dysarthria, cognitive-linguistic status, and dysphagia.
--- NOTE | 2024-03-16 09:27 | W.PN.HOSP.TC ---
Today's Communication/Plan
-
PT OT eval. Neurology reeval.
Assessment / Plan
Assessment / Plan
Physical exam:
General: Acutely ill
HEENT: Normocephalic, Atraumatic and Moist Mucous Membranes
Respiratory: Clear to Auscultation; Negative Wheezes, Rales or Rhonchi
Cardiac: Regular Rhythm and S1/S2
GI: Soft, Nontender and Nondistended
Musculoskeletal: No Clubbing, No Cyanosis and No Edema
Neuro: Awake, Alert and Oriented, strength 4 out of 5 all 4 extremities, dysarthria present, right facial droop, rest of cranial nerves are intact.
Psych: Calm
A/P:
Acute stroke
MRI confirms small acute infarct involving posterior superior left lenticular nucleus extending towards the left periventricular white matter at the level of the ventricular body.
Neurology consult appreciated
Continue aspirin Plavix
Continue statins
MRA unremarkable for vascular stenosis.
-FLP and HgbA1c check during admission two weeks ago - HgbA1c 5.5 - LDL 126 at which time she was started on a statin
-Echo on 02/28/2024
Avoid abrupt decreases in blood pressure
Updated son at bedside today on 03/16
-Today after my evaluation, RN reported some worsening neurological symptoms--> neurology informed and will defer to neurology any further evaluation or recommendations.
Chronic hyponatremia
Start fluid restriction
Monitor sodium
Recent admission for elevated troponin felt to be related to type II [place].
COPD, no acute exacerbation
-Continue Anoro Ellipta
-Continue Duoneb PRN
Hypothyroidism
-Continue levothyroxine
Spinal Stenosis
-Continue gabapentin
DVT proph: SCDs
Code Status: Full Code
Time spent 55 minutes.
Anticipated Discharge: > 48 hours
Subjective/Interval History
-
Date of Service: March 16, 2024
Patient remains about the same from neurological standpoint at the time of my evaluation. No chest pain or shortness of breath or fever.
Objective Data
-
Labs:
Laboratory Results
03/16/24
06:19
WBC 10.0
Hgb 11.8 L
Hct 34.2 L
Plt Count 270
Sodium 130 L
Potassium 3.8
Chloride 100
Carbon Dioxide 23
BUN 9
Creatinine 0.5 L
Glucose 88
Calcium 9.1
Vital Signs:
Vital Signs
Temp Pulse Resp BP Pulse Ox
98.4 F 81 14 134/75 94
03/16/24 07:27 03/16/24 08:00 03/16/24 08:00 03/16/24 07:27 03/16/24 08:00
I&O
03/15/24 03/16/24 03/17/24
06:59 06:59 06:59
Intake Total 840 / 840
Balance 840 / 840
--- NOTE | 2024-03-16 13:14 | SUR.PHASEI ---
Patient noted to have more weakness on right side since this am. When holding cane, noted to be tilting to left side. Using rolling walker at this time for support. Full NIH done. Speech with increased slurring and is more garbled. Aphasia remains
same. Ataxia of right arm new. NIH score equals 4. NIH this am at [address] Estes and Dr. Lane made aware. Monitor patient for now. Patient with some coughing with meals/thin liquids. Patient for video swallow tomorrow as per speech
therapy.
--- NOTE | 2024-03-16 16:42 | PTCARENOTE ---
Patient with evolving CVA. NIH score now 8 from 4. Neurologist and hospitalist aware of new right facial droop, and right lower extremity weakness. Patient unable to ambulate with rolling walker and is a two person assist to [facility] [place]. Patient remains
with aphasia and severe slurred speech. Repeat CT scan ordered for the morning.
[2024-03-16] MEDS: NSS 1000 IV (21:16)
[2024-03-16] MEDS: VITAMIN C 500 MG PO (21:16)
[2024-03-16] MEDS: LIPITOR 40 MG PO (21:16)
[2024-03-17] VITALS (9 sets, daily range): BP systolic 115–136; BP diastolic 50–81; PULSE 84; O2SAT 97
[2024-03-17] MEDS: SYNTHROID 75 MCG PO (05:55)
[2024-03-17 07:59] LABS: Hematocrit 30.7 % (37.0-47.0); Hemoglobin 11.1 g/dL (12.0-16.0); Mean Corp Hgb Conc. 36.2 g/dL (33.0-37.0); Mean Corpuscular Hgb 32.3 pg (27.0-31.0); Mean Corpuscular Volume 89.2 fL (81.0-99.0); Mean Platelet Volume 9.4 fL (7.4-10.4); Platelet Count 277 10^3/uL (130-400); Red Blood Cell Count 3.44 10^6/uL (4.20-5.40); Red Cell Dist. Width 12.6 % (11.5-14.5); White Blood Cell Count 7.2 10^3/uL (4.8-10.8)
[2024-03-17 08:04] LABS: Blood Urea Nitrogen 10 mg/dl (7-17); Calcium 8.6 mg/dl (8.4-10.2); Carbon Dioxide 21 mmol/L (22-30); Chloride 103 mmol/L (98-107); Estimated Creatinine Clearance 61 ml/min; Glucose 97 mg/dl (70-99); Potassium 3.7 mmol/L (3.5-5.1); Sodium 130 mmol/L (135-145); eGFR > 60.00
[2024-03-17] MEDS: NON-FORMULARY ITEM 1 UNIT INH (08:05)
--- NOTE | 2024-03-17 08:40 | PTOTSP ---
Speech Language Pathology
VIDEOFLUOROSCOPIC SWALLOWING EXAMINATION (VSE) completed. Overall, pt with mild oropharyngeal dysphagia. Difficulty chewing cookie with need to expectorate this. Penetration noted with liquids, but no aspiration noted. No significant pharyngeal
residue.
Recommend:
(1) Downgrade to IDDSI Level 6 (Soft/Bite-Sized) Solids and Thin Liquids
(2) Aspiration precautions: single cup sips, no straws, slow rate
(3) Meds whole in puree
(4) DATA SUPPORT SPECIALIST to continue to follow
--- NOTE | 2024-03-17 08:50 | W.PN.HOSP.TC ---
Today's Communication/Plan
-
Repeat CT of the head today. Continue neurological monitoring.
Assessment / Plan
Assessment / Plan
Physical exam:
General: Acutely ill
HEENT: Normocephalic, Atraumatic and Moist Mucous Membranes
Respiratory: Clear to Auscultation; Negative Wheezes, Rales or Rhonchi
Cardiac: Regular Rhythm and S1/S2
GI: Soft, Nontender and Nondistended
Musculoskeletal: No Clubbing, No Cyanosis and No Edema
Neuro: Awake, Alert and Oriented, strength 4 out of 5 all 4 extremities, dysarthria present, right facial droop, rest of cranial nerves are intact.
Psych: Calm
A/P:
Acute stroke
Patient had fluctuation of her neurological status to repeat CT of the head today.
CT of the head confirms 7.5 mm hypodensity left basal ganglia acute infarct and no evidence of hemorrhagic transformation.
Continue antiplatelets and statin and continue to monitor neurologically. No transfer or discharge until neurological stable for more than 24 hours.
Will follow-up further neurology recommendations.
Prior to today:
MRI confirms small acute infarct involving posterior superior left lenticular nucleus extending towards the left periventricular white matter at the level of the ventricular body.
Neurology consult appreciated
Continue aspirin Plavix
Continue statins
MRA unremarkable for vascular stenosis.
-FLP and HgbA1c check during admission two weeks ago - HgbA1c 5.5 - LDL 126 at which time she was started on a statin
-Echo on 02/28/2024
Avoid abrupt decreases in blood pressure
Updated son at bedside today on 03/17
Chronic hyponatremia
Continue fluid restriction
Latest sodium 130 today on 03/17
Monitor sodium
Recent admission for elevated troponin felt to be related to type II [place].
COPD, no acute exacerbation
-Continue Anoro Ellipta
-Continue Duoneb PRN
Hypothyroidism
-Continue levothyroxine
Spinal Stenosis
-Continue gabapentin
DVT proph: SCDs
Code Status: Full Code
Time spent 55 minutes.
Anticipated Discharge: 24 - 48 hours
Subjective/Interval History
-
Date of Service: March 17, 2024
Patient had fluctuating neurological symptoms yesterday and today appears more stable but still deficits present. Required bolus IV fluids for hypotension overnight.
Objective Data
-
Labs:
Laboratory Results
03/17/24
07:25
WBC 7.2
Hgb 11.1 L
Hct 30.7 L
Plt Count 277
Sodium 130 L
Potassium 3.7
Chloride 103
Carbon Dioxide 21 L
BUN 10
Creatinine 0.5 L
Glucose 97
Calcium 8.6
Vital Signs:
Vital Signs
Temp Pulse Resp BP Pulse Ox
98.6 F 86 16 124/81 97
03/17/24 07:05 03/17/24 07:05 03/17/24 08:08 03/17/24 07:05 03/17/24 08:08
I&O
03/16/24 03/17/24 03/18/24
06:59 06:59 06:59
Intake Total 840 / 840 420 / 420
Balance 840 / 840 420 / 420
[2024-03-17] MEDS: OSCAL CAL 500 500 MG PO ×2 (09:00→20:04)
[2024-03-17] MEDS: ASPIR LOW (ENTERIC COATED) 81 MG PO (09:00)
[2024-03-17] MEDS: VITAMIN D3 (cholecalciferol) 50 MCG PO (09:00)
[2024-03-17] MEDS: NEURONTIN 300 MG PO ×2 (09:00→20:03)
[2024-03-17] MEDS: MUCINEX 600 MG PO ×2 (09:00→20:03)
[2024-03-17] MEDS: PLAVIX 75 MG PO (11:14)
[2024-03-17] MEDS: VITAMIN B-12 PO (11:19)
--- NOTE | 2024-03-17 13:55 | PTCARENOTE ---
Patient with NIH score of 7 today. Improvement from yesterday. See NIH for full assessment. Repeat CT completed this morning. No acute bleed; existing acute infarct. Video swallow completed. Aspiration risk. Diet changed to IDDS 6 - bite sized.
Spoke to son and reviewed plan of care. Son agreeable to rehab at this time. strategic manager spoke with son about discharge disposition. Hospitalist came to room to review testing and plan. Son denies questions at this time.
--- NOTE | 2024-03-17 14:19 | PTCARENOTE ---
Addendum entered by Lana Greenfield RN 03/17/24 14:27:
WRONG PATIENT CHART
Original Note:
Patient not able to get PET scan due to eating breakfast today. Patient has been rescheduled for Wednesday at 145pm. Patient understands that he needs to be at PET center by 130pm on Wednesday. Patient not able to get IR injections due to Plavix. Patient
states he would be agreeable to have injections as an outpatient after Plavix wash out period completed.
[2024-03-17] MEDS: VITAMIN C 500 MG PO (20:03)
[2024-03-17] MEDS: LIPITOR 40 MG PO (20:04)
[2024-03-18] VITALS (9 sets, daily range): BP systolic 120–148; BP diastolic 71–78; PULSE 82; O2SAT 97
[2024-03-18] MEDS: SYNTHROID 75 MCG PO (06:15)
[2024-03-18] MEDS: NON-FORMULARY ITEM 1 UNIT INH (07:50)
[2024-03-18 08:18] LABS: Hematocrit 32.4 % (37.0-47.0); Hemoglobin 11.3 g/dL (12.0-16.0); Mean Corp Hgb Conc. 34.9 g/dL (33.0-37.0); Mean Corpuscular Hgb 31.5 pg (27.0-31.0); Mean Corpuscular Volume 90.3 fL (81.0-99.0); Mean Platelet Volume 9.8 fL (7.4-10.4); Platelet Count 281 10^3/uL (130-400); Red Blood Cell Count 3.59 10^6/uL (4.20-5.40); Red Cell Dist. Width 12.4 % (11.5-14.5); White Blood Cell Count 7.1 10^3/uL (4.8-10.8)
[2024-03-18 08:29] LABS: Calcium 8.9 mg/dl (8.4-10.2); Carbon Dioxide 20 mmol/L (22-30); Estimated Creatinine Clearance 61 ml/min; Potassium 3.8 mmol/L (3.5-5.1); eGFR > 60.00
[2024-03-18 08:38] LABS: Blood Urea Nitrogen 12 mg/dl (7-17); Chloride 103 mmol/L (98-107); Glucose 93 mg/dl (70-99); Sodium 131 mmol/L (135-145)
[2024-03-18] MEDS: NEURONTIN 300 MG PO ×2 (08:54→19:25)
[2024-03-18] MEDS: ASPIR LOW (ENTERIC COATED) 81 MG PO (08:55)
[2024-03-18] MEDS: VITAMIN D3 (cholecalciferol) 50 MCG PO (08:55)
[2024-03-18] MEDS: MUCINEX 600 MG PO ×2 (08:55→19:25)
[2024-03-18] MEDS: OSCAL CAL 500 500 MG PO ×2 (08:55→19:26)
[2024-03-18] MEDS: PLAVIX 75 MG PO (08:55)
--- NOTE | 2024-03-18 09:50 | W.PN.HOSP.TC ---
Today's Communication/Plan
-
Check urinalysis. Monitor neurological status.
Assessment / Plan
Assessment / Plan
Physical exam:
General: Acutely ill
HEENT: Normocephalic, Atraumatic and Moist Mucous Membranes
Respiratory: Clear to Auscultation; Negative Wheezes, Rales or Rhonchi
Cardiac: Regular Rhythm and S1/S2
GI: Soft, Nontender and Nondistended
Musculoskeletal: No Clubbing, No Cyanosis and No Edema
Neuro: Awake, Alert and Oriented, strength 4 out of 5 all 4 extremities, dysarthria present, right facial droop, rest of cranial nerves are intact.
Psych: Calm
A/P:
Acute stroke
Patient had fluctuation of her neurological status to repeat CT of the head today.
CT of the head confirms 7.5 mm hypodensity left basal ganglia acute infarct and no evidence of hemorrhagic transformation.
Continue antiplatelets and statin and continue to monitor neurologically.
MRI confirms small acute infarct involving posterior superior left lenticular nucleus extending towards the left periventricular white matter at the level of the ventricular body.
Neurology consult appreciated
MRA unremarkable for vascular stenosis.
-FLP and HgbA1c check during admission two weeks ago - HgbA1c 5.5 - LDL 126 at which time she was started on a statin
-Echo on 02/28/2024
Avoid abrupt decreases in blood pressure
Updated son at bedside today on 03/18
If she remains neurologically stable over the next 24 hours can start planning discharge to rehab.
Urinary frequency and urgency:
Check urinalysis and rule out UTI
Monitor symptoms
Chronic hyponatremia
Continue fluid restriction
Latest sodium 131 today on 03/18
Monitor sodium
Recent admission for elevated troponin felt to be related to type II [place].
COPD, no acute exacerbation
-Continue Anoro Ellipta
-Continue Duoneb PRN
Hypothyroidism
-Continue levothyroxine
Spinal Stenosis
-Continue gabapentin
DVT proph: SCDs
Code Status: Full Code
Anticipated Discharge: 24 - 48 hours
Subjective/Interval History
-
Date of Service: March 18, 2024
Patient neurological status appears more stable today. Reports increased urinary frequency and urgency. Afebrile
Objective Data
-
Labs:
Laboratory Results
03/18/24
06:54
WBC 7.1
Hgb 11.3 L
Hct 32.4 L
Plt Count 281
Sodium 131 L
Potassium 3.8
Chloride 103
Carbon Dioxide 20 L
BUN 12
Creatinine 0.5 L
Glucose 93
Calcium 8.9
Vital Signs:
Vital Signs
Temp Pulse Resp BP Pulse Ox
98.0 F 83 14 125/76 96
03/18/24 07:30 03/18/24 07:51 03/18/24 07:51 03/18/24 07:30 03/18/24 08:55
I&O
03/17/24 03/18/24 03/19/24
06:59 06:59 06:59
Intake Total 420 / 420 420 / 420
Balance 420 / 420 420 / 420
--- NOTE | 2024-03-18 15:33 | CM ---
Chart reviewed today; PT/OT have recommended acute rehab at discharge. Referral sent to [facility] [place] for consideration.
[facility] does not admit on a weekend, so referral will not be reviewed until Wednesday at the earliest. SNF referrals sent as a back up plan.
will continue to follow.
Plan: Transfer to [facility] @ vs SNF
[2024-03-18 17:48] LABS: Urine Albumin Negative (Neg - Trace); Urine Bilirubin Negative (Negative); Urine Character Clear (Clear); Urine Color Yellow; Urine Glucose Negative (Negative); Urine Ketone 3+ (Negative); Urine Leukocyte Negative (Negative); Urine Nitrite Negative (Negative); Urine Occult Blood Negative (Negative); Urine Specific Gravity 1.025 (<1.030); Urine Urobilinogen Negative (Neg - 1+)
[2024-03-18] MEDS: VITAMIN C 500 MG PO (19:26)
[2024-03-18] MEDS: LIPITOR 40 MG PO (19:26)
[2024-03-19] VITALS (9 sets, daily range): BP systolic 113–145; BP diastolic 66–78
[2024-03-19] MEDS: SYNTHROID 75 MCG PO (06:20)
[2024-03-19] MEDS: NON-FORMULARY ITEM 1 UNIT INH (08:02)
--- NOTE | 2024-03-19 08:53 | W.PN.HOSP.TC ---
Today's Communication/Plan
-
Discharge planning in progress.
Assessment / Plan
Assessment / Plan
Physical exam:
General: Acutely ill
HEENT: Normocephalic, Atraumatic and Moist Mucous Membranes
Respiratory: Clear to Auscultation; Negative Wheezes, Rales or Rhonchi
Cardiac: Regular Rhythm and S1/S2
GI: Soft, Nontender and Nondistended
Musculoskeletal: No Clubbing, No Cyanosis and No Edema
Neuro: Awake, Alert and Oriented, strength 4 out of 5 all 4 extremities, dysarthria present, right facial droop, rest of cranial nerves are intact.
Psych: Calm
A/P:
Acute stroke
Patient had fluctuation of her neurological status to repeat CT of the head today.
CT of the head confirms 7.5 mm hypodensity left basal ganglia acute infarct and no evidence of hemorrhagic transformation.
Continue antiplatelets and statin and continue to monitor neurologically.
MRI confirms small acute infarct involving posterior superior left lenticular nucleus extending towards the left periventricular white matter at the level of the ventricular body.
Neurology consult appreciated
MRA unremarkable for vascular stenosis.
-FLP and HgbA1c check during admission two weeks ago - HgbA1c 5.5 - LDL 126 at which time she was started on a statin
-Echo on 02/28/2024
Avoid abrupt decreases in blood pressure
Updated son at bedside today on 03/18
She has now remained neurologically stable over the last next 24 hours, so we can start planning discharge to rehab. branch sales manager for discharge disposition.
Urinary frequency:
No evidence of UTI
Chronic hyponatremia
Continue fluid restriction
Sodium 131 today
Monitor sodium
Recent admission for elevated troponin felt to be related to type II [place].
COPD, no acute exacerbation
-Continue Anoro Ellipta
-Continue Duoneb PRN
Hypothyroidism
-Continue levothyroxine
Spinal Stenosis
-Continue gabapentin
DVT proph: SCDs
Code Status: Full Code
Anticipated Discharge: 24 - 48 hours
Subjective/Interval History
-
Date of Service: March 19, 2024
Patient denies any worsening symptoms today. No chest pain or shortness of breath.
Objective Data
-
Vital Signs:
Vital Signs
Temp Pulse Resp BP Pulse Ox
98.2 F 79 12 145/75 98
03/19/24 03:45 03/19/24 08:04 03/19/24 08:04 03/19/24 03:45 03/19/24 08:04
I&O
03/18/24 03/19/24 03/20/24
06:59 06:59 06:59
Intake Total 420 / 420 360 / 360
Output Total 90 / 90
Balance 420 / 420 360 / 360 -90 / -90
[2024-03-19] MEDS: MUCINEX 600 MG PO ×2 (09:11→19:32)
[2024-03-19] MEDS: OSCAL CAL 500 500 MG PO ×2 (09:11→19:33)
[2024-03-19] MEDS: NEURONTIN 300 MG PO ×2 (09:11→19:32)
[2024-03-19] MEDS: ASPIR LOW (ENTERIC COATED) 81 MG PO (09:11)
[2024-03-19] MEDS: VITAMIN D3 (cholecalciferol) 50 MCG PO (09:11)
[2024-03-19] MEDS: PLAVIX 75 MG PO (09:11)
[2024-03-19 09:22] LABS: Hematocrit 31.6 % (37.0-47.0); Hemoglobin 11.6 g/dL (12.0-16.0); Mean Corp Hgb Conc. 36.7 g/dL (33.0-37.0); Mean Corpuscular Hgb 32.8 pg (27.0-31.0); Mean Corpuscular Volume 89.3 fL (81.0-99.0); Mean Platelet Volume 9.3 fL (7.4-10.4); Platelet Count 280 10^3/uL (130-400); Red Blood Cell Count 3.54 10^6/uL (4.20-5.40); Red Cell Dist. Width 12.3 % (11.5-14.5)
[2024-03-19 09:35] LABS: Blood Urea Nitrogen 15 mg/dl (7-17); Calcium 8.9 mg/dl (8.4-10.2); Carbon Dioxide 18 mmol/L (22-30); Chloride 105 mmol/L (98-107); Estimated Creatinine Clearance 61 ml/min; Glucose 87 mg/dl (70-99); Potassium 3.9 mmol/L (3.5-5.1); Sodium 131 mmol/L (135-145); eGFR > 60.00
[2024-03-19] MEDS: LIPITOR 40 MG PO (19:32)
[2024-03-19] MEDS: VITAMIN C 500 MG PO (19:32)
[2024-03-20] VITALS (8 sets, daily range): BP systolic 96–146; BP diastolic 56–87; PULSE 86–87; O2SAT 96
[2024-03-20] MEDS: SYNTHROID 75 MCG PO (05:55)
[2024-03-20] MEDS: NON-FORMULARY ITEM 1 UNIT INH (07:52)
--- NOTE | 2024-03-20 08:07 | W.PN.HOSP.TC ---
Addendum entered and electronically signed by Arnav Alarcon DO 03/20/24 14:15:
Underweight
Original Note:
Today's Communication/Plan
-
Physiatry consult
Discharge planning
Assessment / Plan
Assessment / Plan
Physical exam:
General: Acutely ill
HEENT: Normocephalic, Atraumatic and Moist Mucous Membranes
Respiratory: Clear to Auscultation; Negative Wheezes, Rales or Rhonchi
Cardiac: Regular Rhythm and S1/S2
GI: Soft, Nontender and Nondistended
Musculoskeletal: No Clubbing, No Cyanosis and No Edema
Neuro: Awake, Alert and Oriented, strength 4 out of 5 all 4 extremities, dysarthria present, right facial droop, rest of cranial nerves are intact.
Psych: Calm
Acute stroke
Patient had fluctuation of her neurological status to repeat CT of the head today.
CT of the head confirms 7.5 mm hypodensity left basal ganglia acute infarct and no evidence of hemorrhagic transformation.
Continue antiplatelets and statin and continue to monitor neurologically.
MRI confirms small acute infarct involving posterior superior left lenticular nucleus extending towards the left periventricular white matter at the level of the ventricular body.
Neurology consult appreciated
MRA unremarkable for vascular stenosis.
-FLP and HgbA1c check during admission two weeks ago - HgbA1c 5.5 - LDL 126 at which time she was started on a statin
-Echo on 02/28/2024
Avoid abrupt decreases in blood pressure
Updated son at bedside today on 03/18
She has now remained neurologically stable over the last next 24 hours, so we can start planning discharge to rehab. data manager for discharge disposition.
Urinary frequency:
No evidence of UTI
Chronic hyponatremia
Continue fluid restriction
Sodium 131, stable
Monitor sodium
Recent admission for elevated troponin felt to be related to type II [place].
COPD, no acute exacerbation
-Continue Anoro Ellipta
-Continue Duoneb PRN
Hypothyroidism
-Continue levothyroxine. TSH 2.0.
Spinal Stenosis
-Continue gabapentin
DVT proph: SCDs
Code Status: Full Code
Dispo -medically stable for acute rehab. Consult physiatry.
Anticipated Discharge: Within 24 hours
Subjective/Interval History
-
Date of Service: March 20, 2024
Patient seen and examined. No complaints.
Objective Data
-
Vital Signs:
Vital Signs
Temp Pulse Resp BP Pulse Ox
97.4 F 78 16 146/86 98
03/20/24 03:14 03/20/24 07:54 03/20/24 07:54 03/20/24 03:14 03/20/24 07:54
I&O
03/19/24 03/20/24 03/21/24
06:59 06:59 06:59
Intake Total 360 / 360 120 / 120
Output Total 300 / 300
Balance 360 / 360 -180 / -180
Review of Systems
-
History Source: Patient
All other systems: Reviewed and negative
[2024-03-20] MEDS: MUCINEX 600 MG PO ×2 (08:33→21:29)
[2024-03-20] MEDS: NEURONTIN 300 MG PO ×2 (08:34→21:29)
[2024-03-20] MEDS: OSCAL CAL 500 500 MG PO ×2 (08:34→21:30)
[2024-03-20] MEDS: VITAMIN D3 (cholecalciferol) 50 MCG PO (08:34)
[2024-03-20] MEDS: ASPIR LOW (ENTERIC COATED) 81 MG PO (08:34)
[2024-03-20] MEDS: PLAVIX 75 MG PO (08:34)
[2024-03-20] MEDS: FLUSH (NSS) 1 FLUSH IV (08:35)
--- NOTE | 2024-03-20 09:54 | PTOTSP ---
ST Follow-Up
Pt continues to present with mild oral dysphagia as well as moderate dysarthria and possible cognitive linguistic impairment (vs. hearing loss?) 2/2 acute CVA.
Recommendations:
- Continue with L6, L0 diet with meds whole in puree
- General aspiration precautions
- Continue TANDEM MILL ROLLER tx while admitted for dysphagia, dysarthria, and suspected cognitive linguistic deficits.
- Recommending d/c to acute rehab when able.
--- NOTE | 2024-03-20 10:05 | CON.MD ---
Documented by User: Christina Langston PA-C 03/21/24 11:12
Consultation - Medical
-
Referring Provider: Arnav Bauman
Chief Complaint: Acute stroke
History of Present Illness: This is a 73-year-old right-handed female who has presented to the hospital with report of dysarthria, aphasia, and generalized weakness. Patient was recently hospitalized here from 02/26/24-03/01/24 with COPD exacerbation,
elevated troponin, and EKG changes with negative cardiac catheterization. Patient's son at bedside reports that she has been doing well since discharge. Per her son, on 03/15 at 0900 she woke up and he reports her speech was abnormally slurred, her
verbal responses were unusually slow, and she had generalized weakness and she was unable to walk to the bathroom without his assistance. He was concerned she had a stroke and brought her to the ER for evaluation. NIHSS is 2 for mild dysarthria and
right facial drooping.
CT head was obtained on arrival and is negative for any acute abnormalities but is suggestive of a small old right external capsule lacunar infarct. She is not a candidate for TNK/IAT due to unknown time of onset of symptoms and low NIHSS. She
denies any known history of TIA, stroke, or similar events in the past. She was taking aspirin 81mg daily for cardiac purposes.
MRI confirms small acute infarct involving posterior superior left lenticular nucleus extending towards the left periventricular white matter at the level of the ventricular body No Associated mass effect.
Scattered small chronic white matter lacunar infarcts.
03/17- Patient had fluctuation of her neurological status CT of the head was repeated and confirms 7.5 mm hypodensity left basal ganglia acute infarct and no evidence of hemorrhagic transformation.
Echo - 02/28/2024
Normal LV size and function.
LVEF is 55 to 60% by visual estimation. RCA territory hypokinesis.
Stage I diastolic dysfunction suggestive of abnormal relaxation.
Normal right ventricular size and function.
Mild tricuspid regurgitation.
Estimated pulmonary artery pressure of 26 mmHg, assuming a right atrial
pressure of 3 mmHg.
Compared to prior from August 03, 2020, RCA territory hypokinesis is new.
MRA unremarkable for vascular stenosis
Past Medical History: HTN, HLD, CAD, COPD, NSTEMI, hypothyroidism, PMR, temporal arteritis, spinal stenosis, osteoporosis, neuropathy
Procedure History: Left Hip Replacement, Carpal Tunnel, x 3
Family History: Reviewed and noncontributory.
Social History:
Functional Level Premorbidly: Independent with all activities (Prior to Admission Patient used a: Small Base Quadcane)
Functional Level Currently: Bed Mobility - Supervision-Transfers- mod assist x1, Ambulation- 12ft with mod assist x1 with NBQC and 12 ft mod assist x2 with NBQC.
Tobacco: Former smoker,
Alcohol: Denies
Drug use: Denies
Lives with: family
24-hour assistance available: yes
Number of floors: 1
# steps to enter: 1 step
# steps to second floor: none
Potential First floor set up:-Patient has a bathroom on: 1st Floor -Bathroom set up- Shower -Patient has a bedroom on: 1st Floor
Driving: No
Occupation: retired
Allergies: No known allergies
Review of Systems:
Constitutional: (x) Normal _
Eye: (x) Normal _
Ear/Nose/Throat: (x) Normal _
Respiratory: (x) Normal _
Cardiovascular: (x) [place]
Gastrointestinal: (x) Normal _
Genitourinary: (x) urinary frequency
Musculoskeletal: (x) right sided weakness
Integumentary: (x) Normal _
Neurologic: (x) CVA. dyarthria
Psychiatric: (x) Normal _
Endocrine: (x) Normal _
Hematologic/Lymphatic: (x) Normal _
Allergic/Immunologic: (x) Normal _
Medications:
Active Current Visit Medication List
Category Date Time Status
Acetaminophen [Tylenol/Feverall] Med 03/15/24 15:30 Active
650 mg RECTAL Q4HPRN PRN
Acetaminophen [Tylenol] Med 03/15/24 15:30 Active
650 mg PO Q4HPRN PRN
Albuterol Nebs [Ventolin Nebules] Med 03/15/24 16:16 Active
2.5 mg INH R Q4HPRN PRN
Ascorbic Acid [Vitamin C] Med 03/15/24 22:00 Active
500 mg PO HS
Aspirin Low Dose EC [Aspir Low (Enteric Coated)] Med 03/16/24 08:00 Active
81 mg PO DAILY
Atorvastatin [Lipitor] Med 03/15/24 22:00 Active
40 mg PO HS
Calcium Carbonate [Oscal Kumar 500] Med 03/15/24 20:00 Active
500 mg PO BID
Cholecalciferol (Vitamin D3) [VITAMIN D3 ( Med 03/16/24 08:00 Active
cholecalciferol)]
50 mcg PO DAILY
Clopidogrel Bisulfate [Plavix] Med 03/16/24 08:00 Active
75 mg PO DAILY
Cyanocobalamin [Vitamin B-12] Med 03/16/24 08:00 Hold
2,500 mcg PO DAILY
Flush (0.9% Sodium Chloride) [Flush (Nss)] Med 03/15/24 16:00 Active
See Dose Instructions IV PER PROTOCOL
Gabapentin [Neurontin] Med 03/15/24 20:00 Active
300 mg PO BID
Guaifenesin [Mucinex] Med 03/15/24 20:00 Active
600 mg PO Q12H
Levothyroxine [Synthroid] Med 03/16/24 06:00 Active
75 mcg PO DAILY @ 0600
Non-Formulary Item Med 03/16/24 08:00 Active
See Dose Instructions INH R DAILY
Vitals:
Temp Pulse Resp BP Pulse Ox
98.0 F 87 18 96/56 95
03/20/24 11:20 03/20/24 11:20 03/20/24 11:20 03/20/24 11:20 03/20/24 11:20
Height 5 ft
Actual Weight 44.594 kg
Body Mass Index (BMI) 19.2
Physical Exam:
General Appearance/Observation: NAD
Pain/Comfort Assessment: Denies
Mood/Affect: Flat affect with stare
Integumentary/Operative Site:
�� Pressure Ulcer Evaluation: absent over heels.
��
�� Other Type of Wound: absent
��
Eyes: Conjunctiva/Lids: normal ��� Pupils: pupils equal round and reactive to light and Accommodation
Ears/Nose/Throat: oral mucosa moist,� throat-not fully visualized due to not opening her mouth wide .��� Moist Mucous Membranes-tongue with thick white coating��������� Lips/Teeth/Gums: normal
Neck: No muscle spasm or tenderness
Cardiovascular: Heart: regular, no murmur
Pulses: dorsalis pedis 2+ bilaterally
Respiratory: Clear to Auscultation bilaterally
Gastrointestinal: Soft, Nontender and Nondistended. BS present
Genitourinary: No Serna
Extremities: Edema: None Cyanosis: None Trophic changes: None
Neurology Exam:
Orientation: Alert, Oriented to self, not to time and place
Memory: impaired, unable to understand her, low volume and with nonsensical answers
Higher cortical function
Repetition: impaired
Comprehension: slow to process
Two step command: slow to process
Naming:impaired
Cranial Nerves:
�� CNII: Pupillary light reflex: Intact��� Visual Field:not tested
�� CN III, IV, : Extraocular muscles: Intact
�� CN V: Facial Sensation at Forehead: Intact, Maxilla: Intact, Mandible: Intact
�� CN VII: Facial movement: right facial droop
�� CN VIII: Hearing: Normal
�� CN IX/X: Speech & swallow: dysarthria, hypophonia Position of Uvula: Midline
�� CN XI: Shoulder shrug: some weakness on the right
�� CN XII: Tongue protrusion: Midline
Sensory:
�� Light touch: Intact in bilateral upper and lower extremities
��
Reflexes:
�� Biceps: 3+ bilaterally
�� Brachioradialis: 3+ bilaterally
�� Triceps: 3+ bilaterally
�� Patellar: 4+ bilaterally
�� Achilles: 4+ bilaterally
�� Babinski: Down going right, upgoing left
�� Clonus: ?right. increased tone or not relaxing ankles bilaterally
�� Denis: Negative bilaterally
Cerebellar: Dysmetria/Ataxia: dysmetria right with nose to finger coordination
Musculoskeletal:
Motor: (Manual muscle scale 0-5)
Muscle SA EF WE EE FF FA HF KE DF EHL PF
Right� 3+ 4 3+ 4 3 3 4 4 4 3+ 3+
Left 5 5 5 5 4 4 5 5 5 4 4
tends to be weaker with repeated assessment of strength
Tone: Normal in all extremities, unable to relax ankles bilaterally on command
Range of Motion: Passively within normal limits in all extremities
Lab Results
Labs
WBC 6.0 10^3/uL (4.8-10.8) 03/19/24 09:02
RBC 3.54 10^6/uL (4.20-5.40) L 03/19/24 09:02
Hgb 11.6 g/dL (12.0-16.0) L 03/19/24 09:02
Hct 31.6 % (37.0-47.0) L 03/19/24 09:02
MCV 89.3 fL (81.0-99.0) 03/19/24 09:02
MCH 32.8 pg (27.0-31.0) H 03/19/24 09:02
MCHC 36.7 g/dL (33.0-37.0) 03/19/24 09:02
RDW 12.3 % (11.5-14.5) 03/19/24 09:02
Plt Count 280 10^3/uL (130-400) 03/19/24 09:02
MPV 9.3 fL (7.4-10.4) 03/19/24 09:02
Abs Immat Gran (auto) 0.0 10^3/uL (0-0.05) 03/15/24 10:22
Absolute Neuts (auto) 4.9 10^3/uL (1.4-6.5) 03/15/24 10:22
Absolute Lymphs (auto) 2.2 10^3/uL (1.2-3.4) 03/15/24 10:22
Absolute Monos (auto) 0.6 10^3/uL (0.1-0.6) 03/15/24 10:22
Absolute Eos (auto) 0.4 10^3/uL (0-0.7) 03/15/24 10:22
Absolute Basos (auto) 0.1 10^3/uL (0-0.2) 03/15/24 10:22
Immature Gran % 0.5 % (0-0.5) 03/15/24 10:22
Neutrophils % 59.3 % (42.2-75.2) 03/15/24 10:22
Lymphocytes % 26.7 % (20.5-51.1) 03/15/24 10:22
Monocytes % 7.7 % (1.7-9.3) 03/15/24 10:22
Eosinophils % 5.1 % (0-6) 03/15/24 10:22
Basophils % 0.7 % (0-2) 03/15/24 10:22
Nucleated RBC % 0 % 03/15/24 10:22
ESR 15 mm/hour (0-20) 03/15/24 10:22
Sodium 131 mmol/L (135-145) L 03/19/24 09:02
Potassium 3.9 mmol/L (3.5-5.1) 03/19/24 09:02
Chloride 105 mmol/L (98-107) 03/19/24 09:02
Carbon Dioxide 18 mmol/L (22-30) L 03/19/24 09:02
BUN 15 mg/dl (7-17) 03/19/24 09:02
Creatinine 0.5 mg/dL (0.6-1.0) L 03/19/24 09:02
Estimated Creat Clear 61 ml/min 03/19/24 09:02
eGFR > 60.00 03/19/24 09:02
Glucose 87 mg/dl (70-99) 03/19/24 09:02
Calcium 8.9 mg/dl (8.4-10.2) 03/19/24 09:02
Magnesium 1.9 mg/dl (1.6-2.3) 03/16/24 06:19
Ferritin 47.3 ng/ml (11.1-264.0) 03/15/24 11:50
Total Bilirubin 0.8 mg/dl (0.2-1.3) 03/15/24 11:50
AST 21 U/L (14-36) 03/15/24 11:50
ALT 16 U/L (0-35) 03/15/24 11:50
Alkaline Phosphatase 68 U/L (38-126) 03/15/24 11:50
Total Protein 5.5 g/dl (6.3-8.2) L 03/15/24 11:50
Albumin 3.5 g/dl (3.5-5.0) 03/15/24 11:50
Vitamin B12 > 1000 pg/ml (239-931) H 03/15/24 11:50
Folate 14.9 ng/ml (2.76-20) 03/15/24 11:50
TSH (Reflex) 2.05 uIU/ml (0.47-4.68) 03/15/24 11:50
Urine Color Yellow 03/18/24 13:51
Urine Clarity Clear (Clear) 03/18/24 13:51
Urine pH 6.0 (5.0-9.0) 03/18/24 13:51
Ur Specific [place] 1.025 (<1.030) 03/18/24 13:51
Urine Ketones 3+ (Negative) A 03/18/24 13:51
Ur Occult Blood Reflex Negative (Negative) 03/18/24 13:51
Urine Nitrite (Reflex) Negative (Negative) 03/18/24 13:51
Urine Bilirubin Negative (Negative) 03/18/24 13:51
Urine Urobilinogen Negative (Neg - 1+) 03/18/24 13:51
Leukocyte Esterase Rfl Negative (Negative) 03/18/24 13:51
Urine Glucose Negative (Negative) 03/18/24 13:51
Urine Albumin (Reflex) Negative (Neg - Trace) 03/18/24 13:51
POC Glucose 111 mg/dl (70-99) H 03/15/24 10:04
�
Diagnostic Results: as per HPI
Assessment This is a 73-year-old right-handed female with slurred speech, dysarthria, aphasia,dysphagia and right sided weakness. Found to have small acute infarct involving posterior superior left lenticular nucleus extending towards the left
periventricular white matter at the level of the ventricular body No Associated mass effect on MRI.
Plan
PT/OT to increase independence with ADLs, improve balance, coordination, endurance, strength, mobility, community reintegration, decreased burden of care on others and family education.
CVA: Per neuro- (aspirin 81 and plavix 75mg x 21 days) with aspirin indefinitely. Continue statin and Blood pressure control (SBP less than 180 and diastolic less than 100 to participate with therapy for ischemic stroke). Continue to monitor
neurologic status.
right dominant hemiparesis: High risk for falls and sliding out of chair/bed. Safety reinforced.
- Avoid using affected arm to help lift or pull patient as this will cause trauma to the shoulder.
Dysarthria: speech evaluation
Aphasia: speech evaluation
Dysphagia: Soft and bite-size.
HTN: Not on medication. Monitor
HLD: Atorvastatin 40 mg daily
Coronary artery disease : Aspirin, statin, not on BB
NSTEMI: Recent admission for elevated troponin felt to be related to type II [place]
Anemia: hgb 11.6. monitor
Chronic hyponatremia:Continue fluid restriction. Sodium 131, stable
Hypothyroidism: levothyroxine 75 mcg daily. TSH 2.0
COPD: Anoro Ellipta 62.5/25 mcg 2 inhs daily. DuoNeb as needed
Psych: Psychology consult.� Monitor mood, adjust medications as needed.
Skin: monitor for pressure sores/rashes/lesions.
Pain/spinal stenosis: acetaminophen as needed, gabapentin 300 twice daily.
Bowel: Not on regimen
Bladder: Time void, PVRs, PRN straight cath.
Urinary frequency: No evidence of UTI. U/A-negative
GI Prophylaxis: not on medicine. Recommend pantoprazole 40 daily
DVT Prophylaxis: Mechanical
Pulmonary: Incentive spirometry
Safety: Continue to reinforce assistance with all transfers.
Code Status:� Full code
Dispo (date/plan/equipment needs): Home with family care.� Social history reviewed.
Functional and Medical Goals: Modified Independent with ADL�s, ambulation, transfers
Discharge Destination: Acute inpatient rehabilitation
Summary of recommendations: Patient with acute CVA associated with right-sided weakness, ambulatory dysfunction, dysarthria will benefit from acute inpatient rehabilitation for PT/OT to increase independence with ADLs, improve balance, coordination,
endurance, strength, mobility, community reintegration, decreased burden of care on others and family education.
CVA: Per neuro- (aspirin 81 and plavix 75mg x 21 days) with aspirin indefinitely. Continue statin and Blood pressure control (SBP less than 180 and diastolic less than 100 to participate with therapy for ischemic stroke). Continue to monitor
neurologic status.
right dominant hemiparesis: High risk for falls and sliding out of chair/bed. Safety reinforced.
- Avoid using affected arm to help lift or pull patient as this will cause trauma to the shoulder.
Dysarthria: speech evaluation
Aphasia: speech evaluation
Dysphagia: Soft and bite-size.
Pain/spinal stenosis: acetaminophen as needed, gabapentin 300 twice daily.
Bowel: recommend Colace and Senna, PRN bisacodyl.
Bladder: Time void, PVRs, PRN straight cath.
Urinary frequency: No evidence of UTI. U/A-negative
GI Prophylaxis: not on medicine. Recommend pantoprazole 40 daily
DVT Prophylaxis: Mechanical
Pulmonary: Incentive spirometry
Safety: Continue to reinforce assistance with all transfers.
Thank you for allowing me to care for your patient. Please contact me with any questions or concerns.
This note was dictated using a voice recognition system. 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 If you believe there are any discrepancies, please notify our office.

Documented by User: Demarco Lan MD 03/21/24 18:47
Consultation - Medical
-
Referring Provider: Arnav Bauman
Chief Complaint: Acute stroke
History of Present Illness: 73-year-old right-handed female who has presented to the hospital with report of dysarthria, aphasia, and generalized weakness. Patient was recently hospitalized here from 02/26/24-03/01/24 with COPD exacerbation, elevated
troponin, and EKG changes with negative cardiac catheterization. Patient's son at bedside reports that she has been doing well since discharge. Per her son, on 03/15 at 0900 she woke up and he reports her speech was abnormally slurred, her verbal
responses were unusually slow, and she had generalized weakness and she was unable to walk to the bathroom without his assistance. He was concerned she had a stroke and brought her to the ER for evaluation. NIHSS is 2 for mild dysarthria and right
facial drooping.
CT head was obtained on arrival and is negative for any acute abnormalities but is suggestive of a small old right external capsule lacunar infarct. She is not a candidate for TNK/IAT due to unknown time of onset of symptoms and low NIHSS. She
denies any known history of TIA, stroke, or similar events in the past. She was taking aspirin 81mg daily for cardiac purposes.
MRI confirms small acute infarct involving posterior superior left lenticular nucleus extending towards the left periventricular white matter at the level of the ventricular body No Associated mass effect.
Scattered small chronic white matter lacunar infarcts.
03/17- Patient had fluctuation of her neurological status CT of the head was repeated and confirms 7.5 mm hypodensity left basal ganglia acute infarct and no evidence of hemorrhagic transformation.
Echo - 02/28/2024
Normal LV size and function.
LVEF is 55 to 60% by visual estimation. RCA territory hypokinesis.
Stage I diastolic dysfunction suggestive of abnormal relaxation.
Normal right ventricular size and function.
Mild tricuspid regurgitation.
Estimated pulmonary artery pressure of 26 mmHg, assuming a right atrial
pressure of 3 mmHg.
Compared to prior from August 03, 2020, RCA territory hypokinesis is new.
MRA unremarkable for vascular stenosis
Past Medical History: HTN, HLD, CAD, COPD, NSTEMI, hypothyroidism, PMR, temporal arteritis, spinal stenosis, osteoporosis, neuropathy
Procedure History: Left Hip Replacement, Carpal Tunnel, x 3
Family History: Reviewed and noncontributory.
Social History:
Functional Level Premorbidly: Independent with all activities (Prior to Admission Patient used a: Small Base Quadcane)
Functional Level Currently: Bed Mobility - Supervision-Transfers- mod assist x1, Ambulation- 12ft with mod assist x1 with NBQC and 12 ft mod assist x2 with NBQC.
Tobacco: Former smoker
Alcohol: Denies
Drug use: Denies
Lives with: family
24-hour assistance available: yes
Number of floors: 1
# steps to enter: 1 step
# steps to second floor: none
Potential First floor set up:-Patient has a bathroom on: 1st Floor -Bathroom set up- Shower -Patient has a bedroom on: 1st Floor
Driving: No
Occupation: retired
Allergies:
Allergy/AdvReac Type Severity Reaction Status Date / Time
adhesive tape Allergy SKIN Verified 03/21/24 17:39
IRRITATION
Review of Systems:
Constitutional: (x) abNormal _ fatgiue
Eye: (x) Normal _
Ear/Nose/Throat: (x) Normal _
Respiratory: (x) Normal _
Cardiovascular: (x) [place]
Gastrointestinal: (x) Normal _
Genitourinary: (x) urinary frequency
Musculoskeletal: (x) right sided weakness
Integumentary: (x) Normal _
Neurologic: (x) CVA. dyarthria
Psychiatric: (x) Normal _
Endocrine: (x) Normal _
Hematologic/Lymphatic: (x) Normal _
Allergic/Immunologic: (x) Normal _
Medications:
Active Current Visit Medication List
Category Date Time Status
Acetaminophen [Tylenol/Feverall] Med 03/15/24 15:30 Active
650 mg RECTAL Q4HPRN PRN
Acetaminophen [Tylenol] Med 03/15/24 15:30 Active
650 mg PO Q4HPRN PRN
Albuterol Nebs [Ventolin Nebules] Med 03/15/24 16:16 Active
2.5 mg INH R Q4HPRN PRN
Ascorbic Acid [Vitamin C] Med 03/15/24 22:00 Active
500 mg PO HS
Aspirin Low Dose EC [Aspir Low (Enteric Coated)] Med 03/16/24 08:00 Active
81 mg PO DAILY
Atorvastatin [Lipitor] Med 03/15/24 22:00 Active
40 mg PO HS
Calcium Carbonate [Oscal Kumar 500] Med 03/15/24 20:00 Active
500 mg PO BID
Cholecalciferol (Vitamin D3) [VITAMIN D3 ( Med 03/16/24 08:00 Active
cholecalciferol)]
50 mcg PO DAILY
Clopidogrel Bisulfate [Plavix] Med 03/16/24 08:00 Active
75 mg PO DAILY
Cyanocobalamin [Vitamin B-12] Med 03/16/24 08:00 Hold
2,500 mcg PO DAILY
Flush (0.9% Sodium Chloride) [Flush (Nss)] Med 03/15/24 16:00 Active
See Dose Instructions IV PER PROTOCOL
Gabapentin [Neurontin] Med 03/15/24 20:00 Active
300 mg PO BID
Guaifenesin [Mucinex] Med 03/15/24 20:00 Active
600 mg PO Q12H
Levothyroxine [Synthroid] Med 03/16/24 06:00 Active
75 mcg PO DAILY @ 0600
Non-Formulary Item Med 03/16/24 08:00 Active
See Dose Instructions INH R DAILY
Vitals:
Temp Pulse Resp BP Pulse Ox
98.0 F 87 18 96/56 95
03/20/24 11:20 03/20/24 11:20 03/20/24 11:20 03/20/24 11:20 03/20/24 11:20
Height 5 ft
Actual Weight 44.594 kg
Body Mass Index (BMI) 19.2
Physical Exam:
General Appearance/Observation: NAD
Pain/Comfort Assessment: Denies
Mood/Affect: Flat affect
Integumentary/Operative Site:
�� Pressure Ulcer Evaluation: absent over heels.
�� �� Other Type of Wound: absent
Eyes: Conjunctiva/Lids: normal ��� Pupils: pupils equal round and reactive to light and Accommodation
Ears/Nose/Throat: oral mucosa moist,� throat-not fully visualized due to not opening her mouth wide .��� Moist Mucous Membranes-tongue with thick white coating��������� Lips/Teeth/Gums: normal
Neck: No muscle spasm or tenderness
Cardiovascular: Heart: regular, no murmur
Pulses: dorsalis pedis 2+ bilaterally
Respiratory: Clear to Auscultation bilaterally
Gastrointestinal: Soft, Nontender and Nondistended. BS present
Genitourinary: No Serna
Extremities: Edema: None Cyanosis: None Trophic changes: None
Neurology Exam:
Orientation: Alert, Oriented to self, not to time and place
Memory: impaired,
Higher cortical function
Repetition: impaired
Comprehension: slow to process
Two step command: slow to process
Naming:impaired
Cranial Nerves:
�� CNII: Pupillary light reflex: Intact��� Visual Field:intact
�� CN III, IV, : Extraocular muscles: Intact
�� CN V: Facial Sensation at Forehead: Intact, Maxilla: Intact, Mandible: Intact
�� CN VII: Facial movement: right facial droop
�� CN VIII: Hearing: Normal
�� CN IX/X: Speech & swallow: dysarthria, hypophonia Position of Uvula: Midline
�� CN XI: Shoulder shrug: some weakness on the right
�� CN XII: Tongue protrusion: Midline
Sensory:
�� Light touch: Intact in bilateral upper and lower extremities
��
Reflexes:
�� Biceps: 3+ bilaterally
�� Brachioradialis: 3+ bilaterally
�� Triceps: 3+ bilaterally
�� Patellar: 4+ bilaterally
�� Achilles: 4+ bilaterally
�� Babinski: Down going right, upgoing left
�� Clonus: few beats
�� Denis: Negative bilaterally
Cerebellar: Dysmetria/Ataxia: dysmetria right with nose to finger coordination
Musculoskeletal: Motor: (Manual muscle scale 0-5)
Muscle SA EF WE EE FF FA HF KE DF EHL PF
Right� 2 2 2 2 3 3 2 4 4 4 3
Left 5 5 5 5 4 4 5 5 5 4 4
tends to be weaker with repeated assessment of strength
Tone: Increased right arm more than leg, normal left UE/LE
Range of Motion: Shoulder ROM limited by tone.
Lab Results
Labs
WBC 6.0 10^3/uL (4.8-10.8) 03/19/24 09:02
RBC 3.54 10^6/uL (4.20-5.40) L 03/19/24 09:02
Hgb 11.6 g/dL (12.0-16.0) L 03/19/24 09:02
Hct 31.6 % (37.0-47.0) L 03/19/24 09:02
MCV 89.3 fL (81.0-99.0) 03/19/24 09:02
MCH 32.8 pg (27.0-31.0) H 03/19/24 09:02
MCHC 36.7 g/dL (33.0-37.0) 03/19/24 09:02
RDW 12.3 % (11.5-14.5) 03/19/24 09:02
Plt Count 280 10^3/uL (130-400) 03/19/24 09:02
MPV 9.3 fL (7.4-10.4) 03/19/24 09:02
Abs Immat Gran (auto) 0.0 10^3/uL (0-0.05) 03/15/24 10:22
Absolute Neuts (auto) 4.9 10^3/uL (1.4-6.5) 03/15/24 10:22
Absolute Lymphs (auto) 2.2 10^3/uL (1.2-3.4) 03/15/24 10:22
Absolute Monos (auto) 0.6 10^3/uL (0.1-0.6) 03/15/24 10:22
Absolute Eos (auto) 0.4 10^3/uL (0-0.7) 03/15/24 10:22
Absolute Basos (auto) 0.1 10^3/uL (0-0.2) 03/15/24 10:22
Immature Gran % 0.5 % (0-0.5) 03/15/24 10:22
Neutrophils % 59.3 % (42.2-75.2) 03/15/24 10:22
Lymphocytes % 26.7 % (20.5-51.1) 03/15/24 10:22
Monocytes % 7.7 % (1.7-9.3) 03/15/24 10:22
Eosinophils % 5.1 % (0-6) 03/15/24 10:22
Basophils % 0.7 % (0-2) 03/15/24 10:22
Nucleated RBC % 0 % 03/15/24 10:22
ESR 15 mm/hour (0-20) 03/15/24 10:22
Sodium 131 mmol/L (135-145) L 03/19/24 09:02
Potassium 3.9 mmol/L (3.5-5.1) 03/19/24 09:02
Chloride 105 mmol/L (98-107) 03/19/24 09:02
Carbon Dioxide 18 mmol/L (22-30) L 03/19/24 09:02
BUN 15 mg/dl (7-17) 03/19/24 09:02
Creatinine 0.5 mg/dL (0.6-1.0) L 03/19/24 09:02
Estimated Creat Clear 61 ml/min 03/19/24 09:02
eGFR > 60.00 03/19/24 09:02
Glucose 87 mg/dl (70-99) 03/19/24 09:02
Calcium 8.9 mg/dl (8.4-10.2) 03/19/24 09:02
Magnesium 1.9 mg/dl (1.6-2.3) 03/16/24 06:19
Ferritin 47.3 ng/ml (11.1-264.0) 03/15/24 11:50
Total Bilirubin 0.8 mg/dl (0.2-1.3) 03/15/24 11:50
AST 21 U/L (14-36) 03/15/24 11:50
ALT 16 U/L (0-35) 03/15/24 11:50
Alkaline Phosphatase 68 U/L (38-126) 03/15/24 11:50
Total Protein 5.5 g/dl (6.3-8.2) L 03/15/24 11:50
Albumin 3.5 g/dl (3.5-5.0) 03/15/24 11:50
Vitamin B12 > 1000 pg/ml (239-931) H 03/15/24 11:50
Folate 14.9 ng/ml (2.76-20) 03/15/24 11:50
TSH (Reflex) 2.05 uIU/ml (0.47-4.68) 03/15/24 11:50
Urine Color Yellow 03/18/24 13:51
Urine Clarity Clear (Clear) 03/18/24 13:51
Urine pH 6.0 (5.0-9.0) 03/18/24 13:51
Ur Specific [place] 1.025 (<1.030) 03/18/24 13:51
Urine Ketones 3+ (Negative) A 03/18/24 13:51
Ur Occult Blood Reflex Negative (Negative) 03/18/24 13:51
Urine Nitrite (Reflex) Negative (Negative) 03/18/24 13:51
Urine Bilirubin Negative (Negative) 03/18/24 13:51
Urine Urobilinogen Negative (Neg - 1+) 03/18/24 13:51
Leukocyte Esterase Rfl Negative (Negative) 03/18/24 13:51
Urine Glucose Negative (Negative) 03/18/24 13:51
Urine Albumin (Reflex) Negative (Neg - Trace) 03/18/24 13:51
POC Glucose 111 mg/dl (70-99) H 03/15/24 10:04
�
Diagnostic Results: as per HPI
Assessment This is a 73-year-old right-handed female with slurred speech, dysarthria, aphasia,dysphagia and right sided weakness. Found to have small acute infarct involving posterior superior left lenticular nucleus extending towards the left
periventricular white matter at the level of the ventricular body No Associated mass effect on MRI.
Plan
PT/OT to increase independence with ADLs, improve balance, coordination, endurance, strength, mobility, community reintegration, decreased burden of care on others and family education.
CVA: aspirin 81 and plavix 75mg x 21 days with aspirin indefinitely, statin and Blood pressure control (SBP less than 180 and diastolic less than 100 to participate with therapy for ischemic stroke). Monitor neurologic status.
right dominant hemiparesis: High risk for falls and sliding out of chair/bed. Safety reinforced.
- Avoid using affected arm to help lift or pull patient as this will cause trauma to the shoulder.
Dysarthria: speech
Aphasia: speech
Dysphagia: aspiration precautions, speech, Soft and bite-size.
HTN: Not on medication. Monitor
HLD: Atorvastatin 40 mg daily
Coronary artery disease : Aspirin, statin, not on BB
-NSTEMI: Recent admission for elevated troponin felt to be related to type II [place]
Anemia: hgb 11.6. monitor
Chronic hyponatremia:Continue fluid restriction. Sodium 131, stable
Hypothyroidism: levothyroxine 75 mcg daily. TSH 2.0
COPD: Anoro Ellipta 62.5/25 mcg 2 inhs daily. DuoNeb as needed
Psych: Psychology consult.� Monitor mood, adjust medications as needed.
Skin: monitor for pressure sores/rashes/lesions.
Pain/spinal stenosis: acetaminophen as needed, gabapentin 300 twice daily.
Bowel: Not on regimen
Bladder: Time void, PVRs, PRN straight cath.
Urinary frequency: No evidence of UTI. U/A-negative
GI Prophylaxis: not on medicine. Recommend pantoprazole 40 daily
DVT Prophylaxis: Mechanical
Pulmonary: Incentive spirometry
Safety: Continue to reinforce assistance with all transfers.
Code Status:� Full code
Dispo (date/plan/equipment needs): Home with family care.� Social history reviewed.
Functional and Medical Goals: Modified Independent with ADL�s, ambulation, transfers
Discharge Destination: Acute inpatient rehabilitation
Summary of recommendations: Patient with acute CVA associated with right-sided weakness, ambulatory dysfunction, dysarthria will benefit from acute inpatient rehabilitation for PT/OT to increase independence with ADLs, improve balance, coordination,
endurance, strength, mobility, community reintegration, decreased burden of care on others and family education.
CVA: aspirin 81 and plavix 75mg x 21 days with aspirin indefinitely, statin and Blood pressure control (SBP less than 180 and diastolic less than 100 to participate with therapy for ischemic stroke). Monitor neurologic status.
Right dominant hemiparesis: High risk for falls and sliding out of chair/bed. Safety reinforced.
- Avoid using affected arm to help lift or pull patient as this will cause trauma to the shoulder.
Dysarthria: speech
Aphasia: speech
Dysphagia: aspiration precautions, speech, Soft and bite-size.
Pain/spinal stenosis: acetaminophen as needed, gabapentin 300 twice daily.
Bowel: recommend Colace and Senna, PRN bisacodyl.
Bladder: Time void, PVRs, PRN straight cath.
Urinary frequency: No evidence of UTI. U/A-negative
GI Prophylaxis: not on medicine. Recommend pantoprazole 40 daily
DVT Prophylaxis: Mechanical
Pulmonary: Incentive spirometry
Safety: Continue to reinforce assistance with all transfers.
Thank you for allowing me to care for your patient. Please contact me with any questions or concerns.
Attending Statement:
I saw and examined the patient today.� Reviewed care plan with patient, therapy, nursing, and physician licensed sales assistant.� I agree with the above subjective and physical exam, and plan as documented by LINNETTE Langston with adjustments made as necessary.
--- NOTE | 2024-03-20 12:23 | PN.CDI ---
CDI
- -
CDI:
Physician Documentation Request
Admit Date: 03/17/24 14:46
Dear Doctor Agnes ,
Please review the following and provide your response in the progress notes.
Clinical Indicators:
Height: 5ft
Weight: 98 lb 5 oz
BMI: 19.2
Other Clinical Notes: Nutrition note 03/16, ' BMI 19.2-underwt >65 yrs)...'
If possible, please provide an associated diagnosis related to the abnormal BMI, such as:
Underweight
Cachectic
- Other
Use of terms such as suspected, likely, concern for, or probable (associated with a specific diagnosis that is being evaluated, monitored, or treated as if it exists) are acceptable and can be coded in the inpatient setting, when documented at the
time of discharge.
Thank you,
Kiara Clinton RN
CDI Specialist
[place] [facility]
Please use your independent medical judgment in providing your response.
--- NOTE | 2024-03-20 17:39 | CM ---
[facility] will accept [facility] with acute rehab auth; need to check bed availability and obtain auth IBC auth prior to transfer.
Son aware of plan and hopeful she can go to [facility].
CM to follow up in AM
[2024-03-20] MEDS: VITAMIN C 500 MG PO (21:30)
[2024-03-20] MEDS: LIPITOR 40 MG PO (21:30)
[2024-03-21] VITALS (8 sets, daily range): BP systolic 109–128; BP diastolic 53–74; PULSE 82–84; O2SAT 97
[2024-03-21] MEDS: SYNTHROID 75 MCG PO (06:18)
[2024-03-21] MEDS: NON-FORMULARY ITEM 1 UNIT INH (08:48)
--- NOTE | 2024-03-21 10:13 | W.PN.HOSP.TC ---
Today's Communication/Plan
-
Discharge when insurance authorization obtained for rehab
Assessment / Plan
Assessment / Plan
Physical exam:
General: NAD, aphasic
HEENT: Normocephalic, Atraumatic and Moist Mucous Membranes
Respiratory: Clear to Auscultation; Negative Wheezes, Rales or Rhonchi
Cardiac: Regular Rhythm and S1/S2
GI: Soft, Nontender and Nondistended
Musculoskeletal: No Clubbing, No Cyanosis and No Edema
Neuro: Awake, Alert and Oriented, strength 4 out of 5 all 4 extremities, dysarthria present, right facial droop, rest of cranial nerves are intact.
Psych: Calm
Acute stroke
CT of the head confirms 7.5 mm hypodensity left basal ganglia acute infarct and no evidence of hemorrhagic transformation.
Continue antiplatelets and statin and continue to monitor neurologically.
MRI confirms small acute infarct involving posterior superior left lenticular nucleus extending towards the left periventricular white matter at the level of the ventricular body.
Neurology consult appreciated
MRA unremarkable for vascular stenosis.
-FLP and HgbA1c check during admission two weeks ago - HgbA1c 5.5 - LDL 126 at which time she was started on a statin
-Echo on 02/28/2024
Avoid abrupt decreases in blood pressure
Updated son at bedside today on 03/18
She has now remained neurologically stable over the last next 24 hours, so we can start planning discharge to rehab. 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
Urinary frequency:
No evidence of UTI
Chronic hyponatremia
Continue fluid restriction
Sodium 131, stable
Monitor sodium
Recent admission for elevated troponin felt to be related to type II [place].
COPD, no acute exacerbation
-Continue Anoro Ellipta
-Continue Duoneb PRN
Hypothyroidism
-Continue levothyroxine. TSH 2.0.
Spinal Stenosis
-Continue gabapentin
DVT proph: SCDs
Code Status: Full Code
Dispo -medically stable for acute rehab. Consult physiatry.
Anticipated Discharge: Within 24 hours
Subjective/Interval History
-
Date of Service: March 21, 2024
Patient seen and examined. No complaints.
Objective Data
-
Vital Signs:
Vital Signs
Temp Pulse Resp BP Pulse Ox
97.8 F 76 16 128/73 97
03/21/24 06:57 03/21/24 08:56 03/21/24 08:56 03/21/24 06:57 03/21/24 08:56
I&O
03/20/24 03/21/24 03/22/24
06:59 06:59 06:59
Intake Total 120 / 120 480 / 480
Output Total 300 / 300 200 / 200
Balance -180 / -180 280 / 280
Review of Systems
-
History Source: Patient
All other systems: Reviewed and negative
[2024-03-21] MEDS: NEURONTIN 300 MG PO (10:42)
[2024-03-21] MEDS: VITAMIN D3 (cholecalciferol) 50 MCG PO (10:42)
[2024-03-21] MEDS: PLAVIX 75 MG PO (10:42)
[2024-03-21] MEDS: OSCAL CAL 500 500 MG PO (10:42)
[2024-03-21] MEDS: MUCINEX 600 MG PO (10:42)
[2024-03-21] MEDS: ASPIR LOW (ENTERIC COATED) 81 MG PO (10:42)
--- NOTE | 2024-03-21 15:16 | CM ---
Addendum entered by Gill Voss 03/21/24 15:50:
CM recieved phone call from Nguyen from Insurance Auth# [id number] 03/21-03/27 NVD 03/27 . CM updated Earnest and will update nursing and patient family.
Original Note:
authorization/clinical information reviewed with insurance, and await response. CM also reviewed IMM and form placed on chart. CM will continue to follow for discharge planning needs.
Plan; Earnest
--- NOTE | 2024-03-21 16:02 | W.DS.TRANS ---
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
-
Discharge Instructions:
Discharge Diagnosis/Procedures Acute stroke, chronic hyponatremia
Diet Other diet
Additional Diets Soft bite sized, thin liquids, 50 ounce daily
fluid restriction
Activity With assistance
Driving Restrictions As prior to admission
Bathing Restrictions None
Instructions:
Stand-Alone Forms:
Changes to Home Medications: No
Discharge Medications:
DC Medications w/original date entered in [employer]
calcium carbonate 500 mg PO BID Supplement 07/15/23
cholecalciferol (vitamin D3) 50 mcg (2,000 unit) tablet (Vitamin D3) 50 mcg PO DAILY Supplement 07/15/23
cyanocobalamin (vitamin B-12) 2,500 mcg tablet 2,500 mcg PO DAILY Supplement 07/15/23
gabapentin 300 mg capsule 300 mg PO BID Pain 07/15/23
levothyroxine 75 mcg tablet 75 mcg PO DAILY Thyroid 07/15/23
umeclidinium 62.5 mcg-vilanterol 25 mcg/actuation powdr for inhalation (Anoro Ellipta) 2 inh inhalation R DAILY Lung/Breathing Issues 07/15/23
albuterol sulfate 90 mcg/actuation aerosol inhaler 2 puff inhalation R Q4HPRN PRN shortness of breath or wheezing 02/26/24
ascorbic acid (vitamin C) 500 mg tablet (Vitamin C) 500 mg PO HS Supplement 02/26/24
flaxseed oil 1,000 mg capsule 1,000 mg PO BID Supplement 02/26/24
aspirin 81 mg tablet,delayed release 81 mg PO DAILY Blood Clot Prevention/Tx 03/15/24
atorvastatin 40 mg tablet 40 mg PO HS High Cholesterol 03/15/24
guaifenesin 600 mg tablet, extended release 12 hr 600 mg PO Q12H Congestion 03/15/24
clopidogrel 75 mg tablet 75 mg PO DAILY #0 tabs 03/21/24
Home Medication Changes
Pending Results: No
--- NOTE | 2024-03-21 16:51 | PTCARENOTE ---
Patient OOB to chair with assist x1 and quad cane. Patient with poor appetite, she does not like the food. Son at bedside, assisting with feeding. Report called to Earnest Warner.
== END 2024-03-21 17:10 | DRG 65 ==
LOC: 4 EAST ACU 14:46
PROVIDERS: Physician Assistant Medical; ADMITTING PHYSICIAN Hospitalist; ATTENDING PHYSICIAN Hospitalist; CONSULT PHYSICIAN Physical Medicine & Rehabilitation; CONSULT PHYSICIAN Psychiatry & Neurology Neurology; EMERGENCY PHYSICIAN Emergency Medicine; FAMILY PHYSICIAN Family Medicine
DX: I63.542 Cerebral infarction due to unspecified occlusion or stenosis of left cerebellar artery (principal); E87.1 Hypo-osmolality and hyponatremia; Z68.1 Body mass index [BMI] 19.9 or less, adult; M31.6 Other giant cell arteritis; M35.3 Polymyalgia rheumatica; R63.6 Underweight
CPT/HCPCS: 70450; 70544; 70548; 70551; 74230; 80048; 80053; 81003; 82607; 82728; 82746; 82962; 83735; 84443; 85025; 85027; 85652; 92507; 92523; 92526; 92610; 92611; 93005; 94640; 97116; 97163; 97167; 97530; 97535; 99285; A9585

== ENCOUNTER 2024-06-09 12:06 | Outpatient (RCR) | payer OTHER, SELFPAY | END 2024-06-09 23:59 | disposition home or self-care (01) | LOC: RPT 12:06 | PROVIDERS: ATTENDING PHYSICIAN Family Medicine | DX: I69.320 Aphasia following cerebral infarction (principal); I69.322 Dysarthria following cerebral infarction; I69.351 Hemiplegia and hemiparesis following cerebral infarction affecting right dominant side; I69.391 Dysphagia following cerebral infarction | CPT/HCPCS: 92507; 92523; 97014; 97110; 97112; 97116; 97163; 97167; 97530; 97535 ==

== ENCOUNTER 2024-07-13 13:50 | Outpatient (RCR) | payer OTHER, SELFPAY | END 2024-07-13 23:59 | disposition home or self-care (01) | LOC: RPT 13:50 | PROVIDERS: ATTENDING PHYSICIAN Family Medicine | DX: I69.351 Hemiplegia and hemiparesis following cerebral infarction affecting right dominant side (principal); I69.320 Aphasia following cerebral infarction; I69.322 Dysarthria following cerebral infarction; I69.391 Dysphagia following cerebral infarction | CPT/HCPCS: 92507; 96125; 97010; 97110; 97112; 97116; 97140; 97530; 97535; 97760 ==

== ENCOUNTER 2024-07-25 03:51 | Observation (INO) | payer OTHER, SELFPAY ==
[2024-07-25] VITALS (7 sets, daily range): BP systolic 106–133; BP diastolic 56–70; PULSE 93–100; BMI 19.8; BMI 18.6
--- NOTE | 2024-07-25 01:54 | ED.GENMED ---
History of Present Illness
General
Chief Complaint: Fever
Source: patient and family (Son)
Exam Limitations: none
Time Seen by Provider: 07/25/24 01:37
History of Present Illness
History of Present Illness:
This is a 73 year old female that is brought in by her son with confusion and talking funny. Son states that the patient recently had a stroke and has right sided weakness. States that her right arm movement has been limited but tonight he felt it
was worse. States that they had a hard time putting on her PJ's. States that she did have a fall 3 days ago but did not hit her head. States that she started with a fever last night at midnight and she took Tylenol. State that her fever broke and
she was fine till about 5pm. Then tonight she felt warm again and took Tylenol at 6pm. States that she took Tylenol at 12 mid night and she took 3 tablets (1500mg). States that she also took her Trazadone tonight. States that she was confused as to
time and person. States that she has a cough with the fever. Denies any chills, chest pain, SOB, abd pain, nausea, vomiting, diarrhea, headache, dizziness, urinary burning.
Past History
Past History
ED Past Medical History: CAD, COPD, CVA (with right sided weakness), HTN, Hypothyroidism and Other ( temporal arteritis, Back pain, Polymyalgia Rheumatica, tinnitus)
ED Past Surgical History: and Orthopedic (Carpal tunnel, Left hip replacement, )
Social History
Tobacco: Former smoker
Alcohol: None
Drug: None
Personal:
Living: with family
Review of Systems
Review of Systems
All Other Systems: ROS reviewed and negative except as documented in HPI and ROS
Constitutional: Reports fever; Denies chills
EENT: Reports no symptoms
Respiratory: Reports cough; Denies trouble breathing
Cardiac: Denies chest pain
ABD/GI: Reports no symptoms; Denies abdominal pain, nausea, vomiting or diarrhea
: Reports no symptoms; Denies dysuria, frequency or urgency
Musculoskeletal: Reports other (Right arm weakness)
Skin: Reports no symptoms
Neurological: Reports other (Change in mental status); Denies dizzy or headache
Psychiatric: Reports no symptoms
Phy Exam
General Physical Exam
General Presentation: no apparent distress
General age: appears stated age
General Skin: warm and dry
General Habitus: elderly
General Mental: confused (Unable to give name of President, thought it was Valadez, Time and place correct)
General Hydration: appears well hydrated
ENT Exam
ENT Exam: TM's normal, pharynx normal and neck supple
Eye Exam
Eye Exam: EOMI
Cardiovascular Exam
Cardiovascular Exam: regular rate/rhythm, no edema and normal peripheral pulses
Pulmonary Exam
Pulmonary Exam: lungs clear, no respiratory distress, no rales, chest non tender, no crackles, no rhonchi and no wheezing
Gastrointestinal Exam
Gastrointestinal Exam: normal bowel sounds, non tender, soft, no organomegaly, no pulsatile mass and non distended
Musculoskeletal Exam
Musculoskeletal Exam: no edema and other (Right arm weakness with hand grasp. limited ROM right arm from prior stroke. Patient is moving the right arm)
Skin Exam
Skin Exam: normal color, warm/dry, no rash and no petechia
Psychiatric Exam
Psychiatric Exam: normal mood/affect
Sepsis
Sepsis Screening
Sepsis Assessment: Sepsis Ruled Out
Sepsis Screen
Sepsis Screen: Sepsis Ruled Out
Date: 07/25/24
Time: 03:40
Course
Orders/Labs/Results
Orders:
Orders
07/25/24 01:52
CT Head W/o Iv Contrast Urgent
Comment: Recent CVA with right side weakness
Reason For Exam: increased confusion
Straight cath- Treatment ONCE
CR Chest - 2 Views Urgent
Comment:
Reason For Exam: Cough
07/25/24 01:53
Electrocardiogram (*1) Urgent
Reason for Study: Other
Other Reason for Exam: change in mental status
EKG- Treatment ONCE
0.9% Sodium Chloride 500 ml [Nss] 500 ml IV BOLUS
07/25/24 02:03
COVID-19 Antigen Urgent
Source: Nasal Swab
Complete Blood Count/With Diff Urgent
Comprehensive Metabolic Panel Urgent
Troponin I Urgent
Urinalysis Reflex To Culture Urgent
Date Specimen was Collected: 07/25/24
Time Specimen was Collected: 02:02
Urine Microscopic Reflex Cult Urgent
Urine Culture Urgent
FRANCO Source: U
Specimen Description:
Date Specimen was Collected: 07/25/24
Time Specimen was Collected: 02:02
07/25/24 02:36
CT Chest Angio W/wo Iv Contras Urgent
Comment:
Reason For Exam: Cough, Fever, aorta widening.
Abnormal Lab Results
07/25/24
02:03
RBC 3.29 L 10^6/uL
(4.20-5.40)
Hgb 10.4 L g/dL
(12.0-16.0)
Hct 30.2 L %
(37.0-47.0)
MCH 31.6 H pg
(27.0-31.0)
Absolute Neuts (auto) 8.1 H 10^3/uL
(1.4-6.5)
Absolute Monos (auto) 0.7 H 10^3/uL
(0.1-0.6)
Neutrophils % 77.9 H %
(42.2-75.2)
Lymphocytes % 11.2 L %
(20.5-51.1)
Glucose 115 H mg/dl
(70-99)
AST 66 H U/L
(14-36)
ALT 48 H U/L
(0-35)
Total Protein 5.8 L g/dl
(6.3-8.2)
Urine Ketones Trace A
(Negative)
Urine Urobilinogen 2+ A
(Neg - 1+)
Leukocyte Esterase Rfl 1+ A
(Negative)
Urine Bacteria (Reflex) Moderate A
(Negative)
07/25/24 02:03
07/25/24 02:03
H/H slightly low. Hyperglycemia, AST/ALT elevtion. Total protein low. Urine negative for infection. COVId negative. Troponin <0.012
Vital Signs
Initial and Last Documented VS:
Initial Vital Signs
Temp Pulse Resp BP Pulse Ox
99.9 F 90 20 106/56 93
07/25/24 01:24 07/25/24 01:24 07/25/24 01:24 07/25/24 01:24 07/25/24 01:24
Last Documented Vital Signs
Temp Pulse Resp BP Pulse Ox
99.9 F 90 20 106/56 93
07/25/24 01:24 07/25/24 01:24 07/25/24 01:24 07/25/24 01:24 07/25/24 01:24
MDM/Problems Addressed
Differential Diagnosis Includes:
CVA, UTi, Dehydration.
MDM/Problems Addressed:
This is a 73 year old female that is brought in by her son with change in mental status. States that she was confused as to time and he felt that her speech was funny.
Will check labs. CT head, Get Urine and give IV fluids.
Back into see patient and son. explained that her Blood work shows that her Liver enzymes are mildly elevated. Urine is negative for infection and COVID is negative. CT of head is negative for any acute process. Chest- x-ray looked abnormal so
getting CTA of the chest. Hospitalist notified about admission.
Chronic conditions affecting care:
Prior CVA
Acute Exacerbation and/or Progression of Chronic Illness:
Prior CVA
*Radiology
Radiology exam reviewed: radiology read reviewed (CT head-Increased in low-density foci in the left inferior basal ganglia compared to prior suggesting interval/evolution of infarct. no other interval change or acute finding. CTA chest night
hawk-Adequate technical study. No acute pulmonary embolism. NO thoracic aortic aneurysm or acute aortic) and other (CTA cont- dissection. Bibasilar atelectasis. Plugging of the left lobe airways, Incidentals: Calcified coronary atherosclerosis. No
acute osseous abnormality. NO acute abnormality with in the visualized abdomen. NO thoracic lymphadenopathy or suspicious lymph nodes. )
*Pulse Oximetry
Patient hypoxic: no
*EKG
Interpreted by ED Provider?: Yes
Heart Rate: 81
Rate: normal
Rhythm: sinus
[place]: left axis deviation
Interval: long QT
QRS Pattern: normal QRS
Ischemia: no ischemia (Checked by Dr. Burt)
*Critical Care Note
Total Time (30-74mins, 75-104mins- exclusive of procedures): Not Applicable
ED Attending Note
-
Portions of this chart may have been created with voice recognition software.� Occasional wrong word or��sound alike� substitutions may have occurred due to the inherent limitations of voice recognition software.
Discharge Plan
Departure
Patient Disposition: Admit
Date of Disposition: 07/25/24
Time of Disposition: 03:12
Admit to: Telemetry
Presentation/result/management discussed w/ accepting MD/DO: Hospitalist
Patient with high blood pressure during this ER visit?: No
Condition: Good
Covid-19: Negative COVID-19
Discharge Problem:
Fever, Altered mental status
Prescriptions:
No Action
levothyroxine 75 mcg Tablet
75 mcg PO DAILY
calcium carbonate 500 mg calcium (1,250 mg) Tablet
500 mg PO BID
gabapentin 300 mg Capsule
300 mg PO BID
cholecalciferol (vitamin D3) [Vitamin D3] 50 mcg (2,000 unit) Tablet
50 mcg PO DAILY
cyanocobalamin (vitamin B-12) 2,500 mcg Tablet
2,500 mcg PO DAILY
flaxseed oil 1,000 mg Capsule
1,000 mg PO BID
atorvastatin 40 mg tablet
40 mg PO HS
midodrine 5 mg Tablet
2.5 mg PO TID@0800,1300,1800 30 Days Qty: 30 1RF
Striverdi Respimat 2.5 mcg/actuation Mist
2 puff inhalation R DAILY 30 Days Qty: 1 0RF
baclofen 5 mg Tablet
2.5 mg PO BID 30 Days Qty: 30 0RF
aspirin 81 mg Tablet,Delayed Release (Dr/Ec)
81 mg PO DAILY Qty: 0 0RF
guaifenesin 600 mg tablet extended release 12hr
600 mg PO Q12H PRN (Reason: Congestion) Qty: 0 0RF
trazodone 50 mg Tablet
12.5 mg PO HS 30 Days Qty: 8 0RF
albuterol sulfate 90 mcg/actuation HFA aerosol inhaler
2 puff inhalation R Q4HPRN PRN (Reason: shortness of breath or wheezing) 30 Days Qty: 1 0RF
Anoro Ellipta 62.5-25 mcg/actuation Blister With Device
2 inh INHALATION R DAILY 30 Days Qty: 1 0RF
Referrals:
Demarco Kapoor MD [Family Provider] -
Interventions
Interventions:
*Neglect/Abuse Screening Last Done: 07/25/24 01:31
ED- Fall Risk Assessment Last Done: 07/25/24 02:16
Discharge Date and Time
Print Language: GREEK
[2024-07-25 02:17] LABS: % Basophils 0.5 % (0-2); % Eosinophils 3.8 % (0-6); % Immature Granulocytes 0.3 % (0-0.5); % Lymphocytes 11.2 % (20.5-51.1); % Monocytes 6.3 % (1.7-9.3); % Neutrophils 77.9 % (42.2-75.2); Absolute Basophils 0.1 10^3/uL (0-0.2); Absolute Eosinophils 0.4 10^3/uL (0-0.7); Absolute Lymphocytes 1.2 10^3/uL (1.2-3.4); Absolute Monocytes 0.7 10^3/uL (0.1-0.6); Absolute Neutrophils 8.1 10^3/uL (1.4-6.5); Hematocrit 30.2 % (37.0-47.0); Hemoglobin 10.4 g/dL (12.0-16.0); Mean Corp Hgb Conc. 34.4 g/dL (33.0-37.0); Mean Corpuscular Hgb 31.6 pg (27.0-31.0); Mean Corpuscular Volume 91.8 fL (81.0-99.0); Mean Platelet Volume 9.4 fL (7.4-10.4); Nucleated Red Blood Cells % 0 %; Platelet Count 231 10^3/uL (130-400); Red Blood Cell Count 3.29 10^6/uL (4.20-5.40); Red Cell Dist. Width 13.4 % (11.5-14.5); Urine Albumin Trace (Neg - Trace); Urine Bilirubin Negative (Negative); Urine Character Clear (Clear); Urine Color Yellow; Urine Glucose Negative (Negative); Urine Ketone Trace (Negative); Urine Leukocyte 1+ (Negative); Urine Nitrite Negative (Negative); Urine Occult Blood Negative (Negative); Urine Specific Gravity 1.015 (<1.030); Urine Urobilinogen 2+ (Neg - 1+); White Blood Cell Count 10.4 10^3/uL (4.8-10.8)
[2024-07-25 02:24] LABS: Urine Bacteria Moderate (Negative); Urine Mucus Moderate; Urine Red Blood Cell 0-2 /HPF (0-2)
[2024-07-25 02:28] LABS: ALT (SGPT) 48 U/L (0-35); AST (SGOT) 66 U/L (14-36); Albumin 3.5 g/dl (3.5-5.0); Alkaline Phosphatase 98 U/L (38-126); Blood Urea Nitrogen 12 mg/dl (7-17); Calcium 8.9 mg/dl (8.4-10.2); Carbon Dioxide 22 mmol/L (22-30); Chloride 104 mmol/L (98-107); Estimated Creatinine Clearance 62 ml/min; Glucose 115 mg/dl (70-99); Sodium 137 mmol/L (135-145); Total Bilirubin 0.8 mg/dl (0.2-1.3); Total Protein 5.8 g/dl (6.3-8.2); eGFR > 60.00
[2024-07-25 02:31] LABS: COVID-19 Antigen Negative (Negative)
[2024-07-25 02:42] LABS: Troponin I < 0.012 ng/ml
[2024-07-25] MEDS: NSS 500 IV (03:01)
--- NOTE | 2024-07-25 03:46 | HPS.HSE ---
Family Physician
-
Family Physician: Demarco Kapoor
Chief Complaint
-
Fever and confusion
History of Present Illness
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
per son.
Son reported patient in reported that she has been having fever since last night. She does have a sick contact in the form of a another son who had upper respiratory symptoms as well as a sick contact at his work. The patient soon got sick after
exposure to the sick contact. She been having a fever up to 102 �F at home. Today she appeared to have slightly more labored breathing and a nonproductive cough. Son reported that she defervesced with Tylenol overnight yesterday. This morning
she appeared to be in a better state of health and was in usual capacity of 1 until later on in the evening when fever came up again. She was given Tylenol with again improvement in the fever until bedtime when it appeared that she started getting
warm again. At that time the patient became more combative and confused. She had increased stiffness of left arm. She was confused about time, she did not want to go to sleep and did not want to come to the hospital. She had no new aphasia.
There was no new weakness. There was no syncopal episode. The patient and son denies any urinary symptoms or foul-smelling urine. They denied any nausea vomiting or diaphoresis. Had cough productive of greenish sputum x1 for me while in ED.
In the Emergency Department the patient had a temp of 99 �F, she was not hemodynamically stable with a normal oxygen saturation on room air. CBC shows a white count of 10.4 with unremarkable hemoglobin and platelet counts. Electrolytes
BUN/creatinine were within normal limits. She had a chest x-ray which shows no acute infiltrates. Then she had a CT PE study which was negative for PE. There appears to be some bibasilar atelectasis and bronchial plugging on the CT scan. CT of
the head shows increase in low-density foci in the left inferior basal ganglia suggesting interval evolution compared to prior.
Medical History
Past Medical History
Past Medical History: Reports COPD, CVA and Hypothyroidism
Additional Past Medical History:
hyponatremia
Past Surgical History: Reports and Orthopedic (Left total hip arthroplasty)
Social History
Tobacco: Former Smoker
Alcohol: None
Drug: None
Personal:
Living: With Family
Employment: Retired
Family History
Family History: Not pertinent
Allergies / Home Medications
Allergies reflects when Allergies were last updated in [facility].
Home Medications with original date entered in [facility]
Allergy/Medication List:
Allergies
Allergy/AdvReac Type Severity Reaction Status Date / Time
adhesive tape Allergy SKIN Verified 07/25/24 01:22
IRRITATION
Home Medications
calcium carbonate 500 mg PO BID Supplement 07/15/23
cholecalciferol (vitamin D3) 50 mcg (2,000 unit) tablet (Vitamin D3) 50 mcg PO DAILY Supplement 07/15/23
cyanocobalamin (vitamin B-12) 2,500 mcg tablet 2,500 mcg PO DAILY Supplement 07/15/23
gabapentin 300 mg capsule 300 mg PO BID Pain 07/15/23
levothyroxine 75 mcg tablet 75 mcg PO DAILY Thyroid 07/15/23
flaxseed oil 1,000 mg capsule 1,000 mg PO BID Supplement 02/26/24
atorvastatin 40 mg tablet 40 mg PO HS High Cholesterol 03/15/24
albuterol sulfate 90 mcg/actuation aerosol inhaler 2 puff inhalation R Q4HPRN PRN shortness of breath or wheezing 30 days #1 container 04/11/24
aspirin 81 mg tablet,delayed release 81 mg PO DAILY CVA- take lifelong #0 tabs 04/11/24
baclofen 5 mg tablet 2.5 mg (1/2 x 5 mg) PO BID spasms, increased tone 30 days #30 tabs 04/11/24
guaifenesin 600 mg tablet, extended release 12 hr 600 mg PO Q12H PRN Congestion #0 tabs 04/11/24
midodrine 5 mg tablet 2.5 mg (1/2 x 5 mg) PO TID@0800,1300,1800 orthostatic hypotension-low pressure 30 days #30 tabs 04/11/24
olodaterol 2.5 mcg/actuation mist for inhalation (Striverdi Respimat) 2 puff inhalation R DAILY copd- comparable substitute acceptable 30 days #1 container 04/11/24
trazodone 50 mg tablet 12.5 mg (1/4 x 50 mg) PO HS insomnia 30 days #8 tabs 04/11/24
umeclidinium 62.5 mcg-vilanterol 25 mcg/actuation powdr for inhalation (Anoro Ellipta) 2 inh inhalation R DAILY Lung/Breathing Issues 30 days #1 container 04/11/24
Review of Systems
-
History Source: Family
Constitutional: Reports Fever
EENT: Reports No Symptoms
Respiratory: Reports Cough (non-productive)
Cardiac: Reports No Symptoms
Abdomen/GI: Reports No Symptoms
: Reports No Symptoms
Musculoskeletal: Reports No Symptoms
Skin: Reports No Symptoms
Neurological: Reports No Symptoms
Endocrine: Reports No Symptoms
Hematologic/Lymphatic: Reports No Symptoms
Psych: Reports No Symptoms
Physical Exam
Vital Signs
Vital Signs
Temp Pulse Resp BP Pulse Ox
99.9 F 90 20 106/56 93
07/25/24 01:24 07/25/24 01:24 07/25/24 01:24 07/25/24 01:24 07/25/24 01:24
Physical Exam
General: No Apparent Distress, Comfortable, Conversant and Slurred Speech (slow speech with mild aphasia)
HEENT: NormoCephalic, Anicteric, Moist mucous membranes and Atraumatic
Respiratory: Clear and Non Labored Respirations
Cardiac: S1/S2 and Regular Rhythm
Breast: Deferred by me
GI: Soft, Non Tender, Non Distended and Normal Bowel Sounds
Rectal: Deferred by Provider
Genito-urinary: Deferred by me
Musculoskeletal: No Clubbing, No Cyanosis and No Edema
Skin: Warm
Neuro: AO x 3, No Sensory Deficits, Facial Droop (right facial droop, old) and Other (spastic paresis in the right arm, 4/5 weakness in the right leg)
Hematologic/Lymphatic: No Lymphadenopathy
Psych: Calm
Laboratory Results
-
07/25/24 02:03
07/25/24 02:03
Laboratory Results
Total Bilirubin 0.8 mg/dl (0.2-1.3) 07/25/24 02:03
AST 66 U/L (14-36) H 07/25/24 02:03
ALT 48 U/L (0-35) H 07/25/24 02:03
Alkaline Phosphatase 98 U/L (38-126) 07/25/24 02:03
Troponin I < 0.012 ng/ml 07/25/24 02:03
Data Reviewed
-
Diagnostic Radiology: Image Personally Visualized and interpreted
CT Scan: Report Reviewed by me
Lab Data: Labs Reviewed by me
Old Records: Reviewed
Impression/Plan
-
IMPRESSION:
73 y.o who had an evolving left inferior basal ganglia stroke first with aphasia and then right sided hemiparesis in March s/p aspirin/plavix and now on aspirin and statin with residual mild aphasia, spastic right upper extremity weakness and mild
lower extremity weakness presenting with cough, fever, confusion. Cough with scant mucus production for me. W/U with CT head shows slight interval change in the prior area of hypodensity suggesting interval evolution but no other acute findings.
Chest xray/CT Chest w/ angio negative for PE, shows atelectasis and airway plugging in the lower regions bilaterally without any focal consolidation. COVID is negative. U/A is likely contaminated and equivocal. Suspect viral
bronchitis/pneumonitis with fevers causing delirum. Possible recrudescence of stroke.
PLAN:
1. Fever - No obvious source. History of sick contacts suggest viral URI. Findings on imaging c/w bronchitis/COPD and possibly aspiration but patient without dysphagia/aspiration history. Hemodynamically stable with normal oxygen requirement and
non-productive cough here. Favor viral uri versus early bacterial pneumonia
- admit to telemetry/observation
- check influenza a+ b/rsv
- check procal, hold abx unless procal elevated
- ceftriaxone/doxy pending procal and influenza
- check clean catch u/a
- tylenol prn fever for now
2. Pulm - Bronchitis, h/o mild COPD, no wheezing, no productive cough
- continue inhaled LABA and LAMA
- duonebs q 4 hours prn
- mucolytics as needed.
3. CVA - Left inferior basal ganglia CVA with residual aphasia, left arm weakness and mild left leg weakness. Left arm has been more stiff over the last few weeks per son. CT scan does not show acute stroke but ongoing evolution.
- continue aspirin/statin
- baclofen for stiffness
DVT PPX - lovenox sq
Code status - Full Code
--- NOTE | 2024-07-25 04:20 | EDRN ---
Patient ambulated into the restroom with assistance and back in bed resting comfortably.
[2024-07-25] MEDS: DUONEB 3 ML INH (05:29)
[2024-07-25] MEDS: VIBRAMYCIN 100 MG PO (06:25)
[2024-07-25] MEDS: SYNTHROID 75 MCG PO (06:25)
[2024-07-25] MEDS: ROCEPHIN 1000 MG IV (06:26)
[2024-07-25] MEDS: STERILE WATER FOR INJECTION 10 ML IV (06:26)
[2024-07-25] MEDS: SPIRIVA RESPIMAT 2.5 MCG 2 PUFF INH (07:20)
--- NOTE | 2024-07-25 08:15 | W.PN.HOSP.TC ---
Addendum entered and electronically signed by Arnav Alarcon DO 07/25/24 09:21:
Updated son at the bedside.
Original Note:
Today's Communication/Plan
-
Await labs
PT/OT
Obtain home medication list
Assessment / Plan
Assessment / Plan
Gen-AAOx3, NAD
HEENT-NC, AT, anicteric, clear oral mm
Neck-supple
CV-reg, no M, +S1/S2
Lungs-clear B/L
Abd-soft, NT, ND
Ext-no edema
Musculoskeletal-no cyanosis, clubbing
Skin-warm and dry
Neuro-grossly non-focal
Psych-calm, cooperative
Acute bronchitis -likely viral. CT chest without infiltrates. COVID and influenza negative. Check procalcitonin and if normal will stop antibiotics. Not hypoxic.
Acute TME -appears to have resolved. Likely due to acute infection.
History of stroke - with residual right hemiparesis.
Essential hypertension -stable.
COPD without exacerbation
Hypothyroidism -continue levothyroxine.
Hyperlipidemia -continue atorvastatin.
Hx Polymyalgia rheumatica/temporal arteritis
Full code
PT/OT
Please obtain home medication list.
Anticipated Discharge: Within 24 hours
Subjective/Interval History
-
Date of Service: July 25, 2024
Patient seen and examined. No complaints.
Objective Data
-
Labs:
Laboratory Results
07/25/24 07/25/24
02:03 06:00
WBC 10.4 Pending
Hgb 10.4 L Pending
Hct 30.2 L Pending
Plt Count 231 Pending
Sodium 137 Pending
Potassium 4.0 Pending
Chloride 104 Pending
Carbon Dioxide 22 Pending
BUN 12 Pending
Creatinine 0.6 Pending
Glucose 115 H Pending
Calcium 8.9 Pending
Total Bilirubin 0.8
AST 66 H
ALT 48 H
Alkaline Phosphatase 98
Vital Signs:
Vital Signs
Temp Pulse Resp BP Pulse Ox
98.4 F 82 16 130/64 92
07/25/24 07:20 07/25/24 07:23 07/25/24 07:23 07/25/24 07:20 07/25/24 07:23
Review of Systems
-
History Source: Patient
All other systems: Reviewed and negative
[2024-07-25 08:25] LABS: Hematocrit 30.5 % (37.0-47.0); Mean Corp Hgb Conc. 32.8 g/dL (33.0-37.0); Mean Corpuscular Hgb 32.1 pg (27.0-31.0); Mean Corpuscular Volume 97.8 fL (81.0-99.0); Mean Platelet Volume 9.6 fL (7.4-10.4); Platelet Count 236 10^3/uL (130-400); Red Blood Cell Count 3.12 10^6/uL (4.20-5.40); Red Cell Dist. Width 13.2 % (11.5-14.5); White Blood Cell Count 9.2 10^3/uL (4.8-10.8)
[2024-07-25 08:56] LABS: Procalcitonin < 0.05 ng/ml (0.0-0.25)
[2024-07-25 09:07] LABS: Blood Urea Nitrogen 9 mg/dl (7-17); Calcium 8.6 mg/dl (8.4-10.2); Carbon Dioxide 24 mmol/L (22-30); Chloride 105 mmol/L (98-107); Estimated Creatinine Clearance 59 ml/min; Glucose 93 mg/dl (70-99); Sodium 138 mmol/L (135-145); eGFR > 60.00
[2024-07-25] MEDS: NEURONTIN 300 MG PO (09:39)
[2024-07-25] MEDS: LIORESAL 2.5 MG PO (09:39)
[2024-07-25] MEDS: ASPIR LOW (ENTERIC COATED) 81 MG PO (09:39)
--- NOTE | 2024-07-25 12:48 | PTOTSP ---
Dysphagia Evaluation
Patient with possible WFL-mild signs of oral/pharyngeal dysphagia.
Last known video swallow study 03/29/2024 revealed oral/pharyngeal stages WFL without aspiration or significant residue. Low suspicion for aspiration at present based on last known video swallow study. However, if concerned for this (given changes
on CT of Chest) please order video swallow study, as aspiration cannot be ruled out bedside.
Recommend:
1. Regular, Thin Liquids
2. Medications - as best tolerated
3. Strategies: upright to 90 degrees, small SINGLE sips/bites, slow rate (given COPD), pick soft/moist foods for ease of chewing
4. Oral care 2-3x daily
5. Brief dysphagia follow up at the acute care level
--- NOTE | 2024-07-25 14:00 | W.DS.TRANS ---
DC Summary - [facility]
-
Discharge Instructions:
Discharge Diagnosis/Procedures Acute bronchitis, acute encephalopathy
Diet Regular
Activity As tolerated
Driving Restrictions As prior to admission
Bathing Restrictions None
Instructions:
Stand-Alone Forms:
Changes to Home Medications: Yes
Discharge Medications:
DC Medications w/original date entered in [facility]
calcium carbonate 500 mg PO BID Supplement 07/15/23
cholecalciferol (vitamin D3) 50 mcg (2,000 unit) tablet (Vitamin D3) 50 mcg PO DAILY Supplement 07/15/23
cyanocobalamin (vitamin B-12) 2,500 mcg tablet 2,500 mcg PO DAILY Supplement 07/15/23
levothyroxine 75 mcg tablet 75 mcg PO DAILY Thyroid 07/15/23
flaxseed oil 1,000 mg capsule 1,000 mg PO BID Supplement 02/26/24
atorvastatin 40 mg tablet 40 mg PO HS High Cholesterol 03/15/24
albuterol sulfate 90 mcg/actuation aerosol inhaler 2 puff inhalation R Q4HPRN PRN shortness of breath or wheezing 30 days #1 container 04/11/24
aspirin 81 mg tablet,delayed release 81 mg PO DAILY CVA- take lifelong #0 tabs 04/11/24
guaifenesin 600 mg tablet, extended release 12 hr 600 mg PO Q12H PRN Congestion #0 tabs 04/11/24
olodaterol 2.5 mcg/actuation mist for inhalation (Striverdi Respimat) 2 puff inhalation R DAILY copd- comparable substitute acceptable 30 days #1 container 04/11/24
umeclidinium 62.5 mcg-vilanterol 25 mcg/actuation powdr for inhalation (Anoro Ellipta) 2 inh inhalation R DAILY Lung/Breathing Issues 30 days #1 container 04/11/24
ascorbic acid (vitamin C) 500 mg tablet (Vitamin C) 500 mg PO HS 07/25/24
baclofen 5 mg tablet 5 mg PO BID 07/25/24
docusate sodium 100 mg capsule (Colace) 100 mg PO HS 07/25/24
docusate sodium 100 mg capsule (Colace) 200 mg PO DAILY 07/25/24
doxycycline hyclate 100 mg capsule 100 mg PO Q12 #9 caps 07/25/24
gabapentin 300 mg capsule 300 mg PO BID #60 caps 07/25/24
polyethylene glycol 3350 17 gram oral powder packet (HealthyLax) 17 g PO DAILYPRN PRN constipation #0 ea 07/25/24
trazodone 50 mg tablet 25 mg PO HS 07/25/24
Home Medication Changes
Gabapentin dose reduced to 300 mg twice daily.
Pending Results: No
--- NOTE | 2024-07-25 15:06 | CM ---
Spoke with son Alfredo about his mom who he lives with in a 2 story home with 1 step to enter and pt lives on first floor. Son said she became confused. Pt is assisted in all ADLs .She has a walker wheelchair commode at home.Hager copy given explained
signed by son on chart.
PT Ot saw her and recommended resuming out pt PT.
She has had [facility] hx and [facility] hx.
[facility]
PCP Dr Kapoor.
PLAN dc to home . Son given out pt PT script to resume therpay.
== END 2024-07-25 14:47 | disposition home or self-care (01) ==
LOC: 4 EAST ACU 03:51
PROVIDERS: Clinical Nurse Specialist Family Health; ADMITTING PHYSICIAN Internal Medicine; ATTENDING PHYSICIAN Hospitalist; EMERGENCY PHYSICIAN Emergency Medicine; FAMILY PHYSICIAN Family Medicine
DX: J20.8 Acute bronchitis due to other specified organisms (principal); G92.8 Other toxic encephalopathy; R50.9 Fever, unspecified; B97.89 Other viral agents as the cause of diseases classified elsewhere; I69.351 Hemiplegia and hemiparesis following cerebral infarction affecting right dominant side; I25.10 Atherosclerotic heart disease of native coronary artery without angina pectoris; I10 Essential (primary) hypertension; G31.9 Degenerative disease of nervous system, unspecified; I69.320 Aphasia following cerebral infarction; J43.2 Centrilobular emphysema; G93.89 Other specified disorders of brain; E03.9 Hypothyroidism, unspecified; M35.3 Polymyalgia rheumatica; R94.31 Abnormal electrocardiogram [ECG] [EKG]; E78.5 Hyperlipidemia, unspecified; J98.11 Atelectasis; I72.8 Aneurysm of other specified arteries; M54.9 Dorsalgia, unspecified; H93.19 Tinnitus, unspecified ear; R73.9 Hyperglycemia, unspecified; Z79.890 Hormone replacement therapy; Z88.8 Allergy status to other drugs, medicaments and biological substances; Z87.891 Personal history of nicotine dependence; Z96.642 Presence of left artificial hip joint; Z11.52 Encounter for screening for COVID-19
CPT/HCPCS: 70450; 71046; 71275; 80048; 80053; 81003; 81015; 84145; 84484; 85025; 85027; 87086; 87502; 87811; 92610; 93005; 94640; 96361; 96374; 97162; 97166; 97535; 99285; G0378; Q9967

== ENCOUNTER 2024-08-09 13:06 | Outpatient (RCR) | payer OTHER, SELFPAY | END 2024-08-09 23:59 | disposition home or self-care (01) | LOC: RPT 13:06 | PROVIDERS: ATTENDING PHYSICIAN Family Medicine | DX: I69.351 Hemiplegia and hemiparesis following cerebral infarction affecting right dominant side (principal); I69.320 Aphasia following cerebral infarction; I63.9 Cerebral infarction, unspecified; I69.322 Dysarthria following cerebral infarction; I69.391 Dysphagia following cerebral infarction; Z73.6 Limitation of activities due to disability | CPT/HCPCS: 92507; 97110; 97112; 97116; 97129; 97130; 97140; 97530; 97535 ==

== ENCOUNTER 2024-10-11 15:23 | Outpatient (RCR) | payer OTHER, SELFPAY | END 2024-10-11 23:59 | disposition home or self-care (01) | LOC: RST 15:23 | PROVIDERS: ATTENDING PHYSICIAN Family Medicine | DX: I69.351 Hemiplegia and hemiparesis following cerebral infarction affecting right dominant side (principal); Z73.6 Limitation of activities due to disability; I69.328 Other speech and language deficits following cerebral infarction; I69.318 Other symptoms and signs involving cognitive functions following cerebral infarction | CPT/HCPCS: 92507; 92523; 97110; 97116; 97140; 97163; 97167; 97530; 97535 ==

== ENCOUNTER 2024-11-06 12:57 | Outpatient (RCR) | payer OTHER, SELFPAY | END 2024-11-06 23:59 | disposition home or self-care (01) | LOC: RST 12:57 | PROVIDERS: ATTENDING PHYSICIAN Family Medicine | DX: I69.351 Hemiplegia and hemiparesis following cerebral infarction affecting right dominant side (principal); Z73.6 Limitation of activities due to disability; I69.328 Other speech and language deficits following cerebral infarction; I69.318 Other symptoms and signs involving cognitive functions following cerebral infarction; I69.392 Facial weakness following cerebral infarction | CPT/HCPCS: 92507; 96125; 97110; 97112; 97116; 97129; 97130; 97140; 97530; 97535 ==

== ENCOUNTER 2024-12-11 12:02 | Outpatient (RCR) | payer OTHER, SELFPAY | END 2024-12-11 23:59 | disposition home or self-care (01) | LOC: RST 12:02 | PROVIDERS: ATTENDING PHYSICIAN Family Medicine | DX: I69.351 Hemiplegia and hemiparesis following cerebral infarction affecting right dominant side (principal); I69.328 Other speech and language deficits following cerebral infarction; I69.319 Unspecified symptoms and signs involving cognitive functions following cerebral infarction; I69.318 Other symptoms and signs involving cognitive functions following cerebral infarction; I69.392 Facial weakness following cerebral infarction; Z73.6 Limitation of activities due to disability | CPT/HCPCS: 92507; 97010; 97110; 97112; 97116; 97129; 97130; 97140; 97530; 97535 ==

== ENCOUNTER 2024-12-27 22:52 | Emergency (ER) | payer OTHER, SELFPAY ==
[2024-12-27 22:52] VITALS: BMI 21.1
[2024-12-27 22:56] VITALS: BP 183/104
[2024-12-27 23:16] LABS: % Basophils 0.1 % (0-2); % Immature Granulocytes 0.3 % (0-0.5); % Monocytes 4.3 % (1.7-9.3); % Neutrophils 83.3 % (42.2-75.2); Absolute Lymphocytes 1.2 10^3/uL (1.2-3.4); Absolute Monocytes 0.4 10^3/uL (0.1-0.6); Absolute Neutrophils 8.4 10^3/uL (1.4-6.5); Hematocrit 34.7 % (37.0-47.0); Mean Corp Hgb Conc. 34.6 g/dL (33.0-37.0); Mean Corpuscular Hgb 31.9 pg (27.0-31.0); Mean Corpuscular Volume 92.3 fL (81.0-99.0); Mean Platelet Volume 9.5 fL (7.4-10.4); Nucleated Red Blood Cells % 0 %; Platelet Count 319 10^3/uL (130-400); Red Blood Cell Count 3.76 10^6/uL (4.20-5.40); Red Cell Dist. Width 13.5 % (11.5-14.5); White Blood Cell Count 10.1 10^3/uL (4.8-10.8)
[2024-12-27 23:31] LABS: ALT (SGPT) 35 U/L (0-35); AST (SGOT) 29 U/L (14-36); Albumin 4.1 g/dl (3.5-5.0); Alkaline Phosphatase 85 U/L (38-126); Blood Urea Nitrogen 18 mg/dl (7-17); Calcium 9.3 mg/dl (8.4-10.2); Carbon Dioxide 21 mmol/L (22-30); Chloride 108 mmol/L (98-107); Glucose 118 mg/dl (70-99); Potassium 4.2 mmol/L (3.5-5.1); Sodium 139 mmol/L (135-145); Total Bilirubin 0.8 mg/dl (0.2-1.3); Total Protein 6.6 g/dl (6.3-8.2); eGFR > 60.00
[2024-12-27 23:40] LABS: Troponin I < 0.012 ng/ml
[2024-12-28 01:30] LABS: Urine Albumin 2+ (Neg - Trace); Urine Bilirubin Negative (Negative); Urine Character Clear (Clear); Urine Color Yellow; Urine Glucose Negative (Negative); Urine Ketone Negative (Negative); Urine Leukocyte Negative (Negative); Urine Nitrite Negative (Negative); Urine Occult Blood 1+ (Negative); Urine Specific Gravity 1.015 (<1.030); Urine Urobilinogen Negative (Neg - 1+)
[2024-12-28 01:55] VITALS: BP 171/98
[2024-12-28 02:00] VITALS: BP 186/100
[2024-12-28 02:06] LABS: Urine Amorphous Seen; Urine Bacteria Many (Negative); Urine Mucus Moderate; Urine Squamous Cell >30 /LPF (Few)
[2024-12-28 02:07] LABS: Urine White Cell 0-2 /HPF (0-5)
[2024-12-28 03:00] VITALS: BP 151/97
[2024-12-28 04:00] VITALS: BP 128/90
[2024-12-28 05:00] VITALS: BP 135/103
--- NOTE | 2024-12-28 05:20 | ED.GENMED ---
History of Present Illness
General
Chief Complaint: Breathing Problem
Source: patient and family
Exam Limitations: none
Time Seen by Provider: 12/28/24 03:12
Nursing documentation reviewed up to this point in time: agreed with
History of Present Illness
History of Present Illness:
74-year-old female past medical history of hypertension COPD previous stroke presenting to the emergency department with son with concerns of rolling out of bed this morning also seemingly 'off' according to the son also has had some sweating
yesterday. Denies any specific fevers any specific upper respiratory symptoms chest pain shortness of breath. She denies any specific symptoms at this time.
Past History
Past History
ED Past Medical History: CAD, COPD, CVA (with right sided weakness), HTN, Hypothyroidism and Other ( temporal arteritis, Back pain, Polymyalgia Rheumatica, tinnitus)
ED Past Surgical History: and Orthopedic (Carpal tunnel, Left hip replacement, )
Social History
Tobacco: Former smoker
Alcohol: None
Drug: None
Personal:
Living: with family
Review of Systems
Review of Systems
Allergies reviewed?: Yes
All Other Systems: ROS reviewed and negative except as documented in HPI and ROS
Phy Exam
Physical Exam
Physical Exam:
GENERAL: Alert , in no apparent distress
EYE: pupils equal and reactive
NECK: Supple, no significant adenopathy.
ENT: o/p clr, mmm.
CARDIAC: Regular rate and rhythm .
LUNGS: Clear breath sounds bilaterally, no acute respiratory distress, no wheezes/rales/rhonchi
ABDOMEN: Soft, without focal tenderness, no r/g, no cvat
NEUROLOGICAL: Alert and oriented, no focal neuro deficits
SKIN: Warm and dry, skin intact.
MUSCULOSKELETAL: No edema, well perfused.
PSYCH: Normal and appropriate interaction.
Scores
Heart Failure Risk
Heart Failure Risk Score: Not Applicable
Course
Orders/Labs/Results
Orders:
Orders
12/27/24 22:56
Electrocardiogram (*1) Urgent
Reason for Study: Shortness of Breath
EKG- Treatment ONCE
12/27/24 23:07
Complete Blood Count/With Diff Urgent
Comprehensive Metabolic Panel Urgent
Troponin I Urgent
12/28/24
CT Head W/o Iv Contrast Urgent
Reason For Exam: rolled out of bed, unsure of head strike
12/28/24 00:57
Urinalysis Reflex To Culture Urgent
Date Specimen was Collected: 12/28/24
Time Specimen was Collected: 00:55
Urine Microscopic Reflex Cult Urgent
Urine Culture Urgent
FRANCO Source: U
Specimen Description:
Date Specimen was Collected: 12/28/24
Time Specimen was Collected: 00:55
12/28/24 03:13
Chest [CR Chest - 2 Views ] Urgent
Comment:
Reason For Exam: cp
Abnormal Lab Results
12/27/24 12/28/24
23:07 00:57
RBC 3.76 L 10^6/uL
(4.20-5.40)
Hct 34.7 L %
(37.0-47.0)
MCH 31.9 H pg
(27.0-31.0)
Absolute Neuts (auto) 8.4 H 10^3/uL
(1.4-6.5)
Neutrophils % 83.3 H %
(42.2-75.2)
Lymphocytes % 12.0 L %
(20.5-51.1)
Chloride 108 H mmol/L
(98-107)
Carbon Dioxide 21 L mmol/L
(22-30)
BUN 18 H mg/dl
(7-17)
Glucose 118 H mg/dl
(70-99)
Ur Occult Blood Reflex 1+ A
(Negative)
Urine RBC 7-10 A /HPF
(0-2)
Urine Bacteria (Reflex) Many A
(Negative)
Urine Albumin (Reflex) 2+ A
(Neg - Trace)
12/27/24 23:07
12/27/24 23:07
Vital Signs
Initial and Last Documented VS:
Initial Vital Signs
Temp Pulse Resp BP Pulse Ox
98 F 101 16 183/104 95
12/27/24 22:56 12/27/24 22:56 12/27/24 22:56 12/27/24 22:56 12/27/24 22:56
Last Documented Vital Signs
Temp Pulse Resp BP Pulse Ox
98 F 101 18 135/103 93
12/27/24 22:56 12/28/24 04:45 12/28/24 04:45 12/28/24 05:00 12/28/24 04:30
MDM/Problems Addressed
MDM/Problems Addressed:
74-year-old female presenting to the emergency department today with the son with concerns of feeling 'off'. Initially hypertensive but improving without specific treatment. Vital signs normal on my assessment. Labs without emergent findings
other than slightly elevated BUN to creatinine ratio. Otherwise troponin negative urinalysis normal head CT negative chest x-ray normal no emergent findings here son claims that he feels safe taking her home at this point otherwise stable for
discharge return precautions given.
*Critical Care Note
Total Time (30-74mins, 75-104mins- exclusive of procedures): Not Applicable
ED Attending Note
-
Portions of this chart may have been created with voice recognition software.� Occasional wrong word or��sound alike� substitutions may have occurred due to the inherent limitations of voice recognition software.
Discharge Plan
Departure
Patient Disposition: Home (Routine Discharge)
Date of Disposition: 12/28/24
Time of Disposition: 05:21
Patient with high blood pressure during this ER visit?: No
Condition: Good
Covid-19: Not Applicable
Discharge Problem:
Fall
Instructions: Preventing falls in adults
Prescriptions:
No Action
levothyroxine 75 mcg Tablet
75 mcg PO DAILY
calcium carbonate 500 mg calcium (1,250 mg) Tablet
600 mg PO BID
cholecalciferol (vitamin D3) [Vitamin D3] 50 mcg (2,000 unit) Tablet
50 mcg PO DAILY
cyanocobalamin (vitamin B-12) 2,500 mcg Tablet
2,500 mcg PO DAILY
flaxseed oil 1,000 mg Capsule
1,000 mg PO BID
atorvastatin 40 mg tablet
40 mg PO HS
baclofen 5 mg Tablet
5 mg PO BID
trazodone 50 mg Tablet
50 mg PO HS
docusate sodium [Colace] 100 mg Capsule
200 mg PO DAILY
docusate sodium [Colace] 100 mg Capsule
100 mg PO HS
ascorbic acid (vitamin C) [Vitamin C] 500 mg Tablet
500 mg PO HS
meloxicam 7.5 mg Tablet
7.5 mg PO DAILY
midodrine 2.5 mg Tablet
2.5 mg PO ONCE
gabapentin 300 mg capsule
600 mg PO BID
azithromycin 250 mg Tablet
250 mg PO DAILY
prednisone 20 mg Tablet
20 mg PO DAILY
aspirin 81 mg Tablet,Delayed Release (Dr/Ec)
81 mg PO DAILY Qty: 0 0RF
guaifenesin 600 mg tablet extended release 12hr
600 mg PO Q12H PRN (Reason: Congestion) Qty: 0 0RF
albuterol sulfate 90 mcg/actuation HFA aerosol inhaler
2 puff inhalation R Q4HPRN PRN (Reason: shortness of breath or wheezing) 30 Days Qty: 1 0RF
Anoro Ellipta 62.5-25 mcg/actuation Blister With Device
2 inh INHALATION R DAILY 30 Days Qty: 1 0RF
Referrals:
UNKNOWN - PT DOES,NOT KNOW [Family Provider] -
Activity Restrictions/Additional Instructions:
You came to the emergency department today after rolling out of bed. Here you had a reassuring assessment with normal head CT chest x-ray EKG labs and urinalysis. Your labs showed potential of slight dehydration please make sure you stay hydrated.
Return for any worsening, new or concerning symptoms.
Interventions
Interventions:
*Risk Screen - Suicide Last Done: 12/27/24 22:58
*General Assessment Last Done: 12/28/24 02:04
*Neglect/Abuse Screening Last Done: 12/27/24 22:58
*ED- Fall Risk Assessment Last Done: 12/28/24 02:04
*ED COVID-19 Vaccine History Last Done: 12/28/24 02:04
*Nursing Disposition Last Done: 12/28/24 05:42
ED- Cardiac Assessment Last Done: 12/28/24 02:06
ED-Musculoskeletal Assessment Last Done: 12/28/24 02:06
ED- Neurological Assessment Last Done: 12/28/24 02:06
ED- Pulmonary Assessment Last Done: 12/28/24 02:06
ED-Skin Assessment Last Done: 12/28/24 02:06
Discharge Date and Time
Discharge Date/Time: 12/28/24 05:43
Print Language: NAMIBIAN
== END 2024-12-28 05:43 | disposition home or self-care (01) ==
LOC: EMR 22:52
PROVIDERS: Emergency Medicine; EMERGENCY PHYSICIAN Emergency Medicine
DX: Z04.89 Encounter for examination and observation for other specified reasons (principal); W06.XXXA Fall from bed, initial encounter; I25.10 Atherosclerotic heart disease of native coronary artery without angina pectoris; J44.9 Chronic obstructive pulmonary disease, unspecified; I10 Essential (primary) hypertension; E03.9 Hypothyroidism, unspecified; M35.3 Polymyalgia rheumatica; Z86.73 Personal history of transient ischemic attack (TIA), and cerebral infarction without residual deficits; Z87.891 Personal history of nicotine dependence; Z96.642 Presence of left artificial hip joint
CPT/HCPCS: 99284; 70450; 71046; 80053; 81003; 81015; 84484; 85025; 87086; 93005

== ENCOUNTER 2025-01-08 13:05 | Outpatient (RCR) | payer OTHER, SELFPAY | END 2025-01-08 23:59 | disposition home or self-care (01) | LOC: RST 13:05 | PROVIDERS: ATTENDING PHYSICIAN Family Medicine | DX: I69.328 Other speech and language deficits following cerebral infarction (principal); I69.319 Unspecified symptoms and signs involving cognitive functions following cerebral infarction; I69.392 Facial weakness following cerebral infarction; Z73.6 Limitation of activities due to disability; I69.351 Hemiplegia and hemiparesis following cerebral infarction affecting right dominant side; I69.318 Other symptoms and signs involving cognitive functions following cerebral infarction | CPT/HCPCS: 92507; 97110; 97112; 97116; 97129; 97130; 97140; 97530; 97535 ==

== ENCOUNTER 2025-02-09 15:01 | Outpatient (RCR) | payer OTHER, SELFPAY | END 2025-02-09 23:59 | disposition home or self-care (01) | LOC: RST 15:01 | PROVIDERS: ATTENDING PHYSICIAN Family Medicine | DX: I69.328 Other speech and language deficits following cerebral infarction (principal); I69.319 Unspecified symptoms and signs involving cognitive functions following cerebral infarction; I69.392 Facial weakness following cerebral infarction; Z73.6 Limitation of activities due to disability; I69.351 Hemiplegia and hemiparesis following cerebral infarction affecting right dominant side; I69.318 Other symptoms and signs involving cognitive functions following cerebral infarction | CPT/HCPCS: 92507; 97110; 97112; 97116; 97129; 97130; 97140; 97530; 97535 ==

== ENCOUNTER 2025-03-12 15:17 | Outpatient (RCR) | payer OTHER, SELFPAY | END 2025-03-12 23:59 | disposition home or self-care (01) | LOC: RST 15:17 | PROVIDERS: ATTENDING PHYSICIAN Family Medicine | DX: I69.328 Other speech and language deficits following cerebral infarction (principal); I69.392 Facial weakness following cerebral infarction; Z73.6 Limitation of activities due to disability; I69.351 Hemiplegia and hemiparesis following cerebral infarction affecting right dominant side; I69.318 Other symptoms and signs involving cognitive functions following cerebral infarction; I69.319 Unspecified symptoms and signs involving cognitive functions following cerebral infarction | CPT/HCPCS: 92507; 97010; 97110; 97112; 97116; 97140; 97530; 97535 ==

== ENCOUNTER 2025-04-09 12:21 | Outpatient (RCR) | payer OTHER, SELFPAY | END 2025-04-09 23:59 | disposition home or self-care (01) | LOC: RST 12:21 | PROVIDERS: ATTENDING PHYSICIAN Family Medicine | DX: I69.328 Other speech and language deficits following cerebral infarction (principal); Z73.6 Limitation of activities due to disability; I69.351 Hemiplegia and hemiparesis following cerebral infarction affecting right dominant side; I69.318 Other symptoms and signs involving cognitive functions following cerebral infarction; I69.392 Facial weakness following cerebral infarction; I69.319 Unspecified symptoms and signs involving cognitive functions following cerebral infarction | CPT/HCPCS: 92507; 97110; 97112; 97116; 97140; 97530; 97535 ==

== ENCOUNTER 2025-05-07 13:50 | Outpatient (RCR) | payer OTHER, SELFPAY | END 2025-05-07 23:59 | disposition home or self-care (01) | LOC: RST 13:50 | PROVIDERS: ATTENDING PHYSICIAN Family Medicine | DX: I69.328 Other speech and language deficits following cerebral infarction (principal); Z73.6 Limitation of activities due to disability; I69.351 Hemiplegia and hemiparesis following cerebral infarction affecting right dominant side; I69.318 Other symptoms and signs involving cognitive functions following cerebral infarction; I69.392 Facial weakness following cerebral infarction; I69.310 Attention and concentration deficit following cerebral infarction; I69.314 Frontal lobe and executive function deficit following cerebral infarction; I69.311 Memory deficit following cerebral infarction | CPT/HCPCS: 92507; 97010; 97110; 97129; 97130; 97140; 97530; 97535 ==

== ENCOUNTER 2025-06-08 13:06 | Outpatient (RCR) | payer OTHER, SELFPAY | END 2025-06-08 23:59 | disposition home or self-care (01) | LOC: RST 13:06 | PROVIDERS: ATTENDING PHYSICIAN Family Medicine | DX: I69.328 Other speech and language deficits following cerebral infarction (principal); I69.318 Other symptoms and signs involving cognitive functions following cerebral infarction; I69.392 Facial weakness following cerebral infarction; I69.310 Attention and concentration deficit following cerebral infarction; I69.314 Frontal lobe and executive function deficit following cerebral infarction; I69.311 Memory deficit following cerebral infarction; Z73.6 Limitation of activities due to disability; I69.351 Hemiplegia and hemiparesis following cerebral infarction affecting right dominant side | CPT/HCPCS: 92507; 97110; 97140; 97530; 97535 ==

== ENCOUNTER → 2025-07-04 13:11 | Outpatient (REF) | payer OTHER, SELFPAY | LOC: RAD 13:11 | PROVIDERS: ATTENDING PHYSICIAN Student in an Organized Health Care Education/Training Program | DX: J44.1 Chronic obstructive pulmonary disease with (acute) exacerbation (principal) | CPT/HCPCS: 71046 ==

== ENCOUNTER 2025-08-31 14:03 | Inpatient (IN) | payer OTHER, SELFPAY ==
[2025-08-30 22:07] VITALS: BP 162/93
[2025-08-30 22:24] LABS: Hematocrit 35.5 % (37.0-47.0); Hemoglobin 12.0 g/dL (12.0-16.0); Mean Corp Hgb Conc. 33.8 g/dL (33.0-37.0); Mean Corpuscular Volume 92.7 fL (81.0-99.0); Nucleated Red Blood Cells % 0 %; Platelet Count 232 10^3/uL (130-400); Red Cell Dist. Width 13.1 % (11.5-14.5)
[2025-08-30 22:42] VITALS: BMI 18.9
[2025-08-30 22:48] LABS: ALT (SGPT) 30 U/L (0-35); AST (SGOT) 38 U/L (14-36); Albumin 3.7 g/dl (3.5-5.0); Alkaline Phosphatase 88 U/L (38-126); Blood Urea Nitrogen 19 mg/dl (7-17); Calcium 9.1 mg/dl (8.4-10.2); Carbon Dioxide 26 mmol/L (22-30); Chloride 105 mmol/L (98-107); Estimated Creatinine Clearance 59 ml/min; Glucose 91 mg/dl (70-99); Potassium 3.8 mmol/L (3.5-5.1); Sodium 135 mmol/L (135-145); Total Protein 6.5 g/dl (6.3-8.2); eGFR > 60.00
[2025-08-30 23:00] VITALS: BP 139/90
[2025-08-30 23:43] LABS: Urine Character Slightly Cloudy (Clear)
[2025-08-31] VITALS (14 sets, daily range): BP systolic 124–165; BP diastolic 68–100; PULSE 70; O2SAT 96; BMI 19.4; BMI 18.9
--- NOTE | 2025-08-31 00:15 | ED.GENMED ---
History of Present Illness
General
Chief Complaint: Change in Mental Status
Source: patient, records, family, previous radiology exam and previous hospital records
Exam Limitations: altered mental status
Time Seen by Provider: 08/30/25 23:41
Nursing documentation reviewed up to this point in time: agreed with
History of Present Illness
History of Present Illness:
74-year-old female prior stroke ex-smoker COPD chills right-sided weakness past month or so she has had episodes of weakness diagnosed with UTI treated with Levaquin and then antifungal told to stop due to negative culture increased lethargy
decreased p.o. intake for the past 24 hours, increasing weakness, no fever no nausea vomiting, no falls
Past History
Past History
ED Past Medical History: CAD, COPD, CVA (with right sided weakness), HTN, Hypothyroidism and Other ( temporal arteritis, Back pain, Polymyalgia Rheumatica, tinnitus)
ED Past Surgical History: and Orthopedic (Carpal tunnel, Left hip replacement, )
Social History
Tobacco: Former smoker
Alcohol: None
Drug: None
Personal:
Living: with family
Employment: Retired
Review of Systems
Review of Systems
Unable to obtain full review of systems at this time due to: due to acuity
Other source history: family
All Other Systems: Not applicable
Phy Exam
Physical Exam
Physical Exam:
Physical Exam
General: Chronically ill female follows simple commands
Neck: Lips are moist no tongue
Heart: s1/s2 regular rate and rhythm, no murmur. equal radial pulses.
Lungs: no acute respiratory distress. clear bilaterally
Abdomen: Nontender
Neuro: Right arm greater than leg weakness
Skin: no rash
Psychiatric: well kept. interactive and cooperative
Extremities: no edema.
Course
Orders/Labs/Results
Orders:
Orders
08/30/25 22:17
CMP [Comprehensive Metabolic Panel] Urgent
Complete Blood Count/With Diff Urgent
08/30/25 23:24
Urinalysis Reflex To Culture Urgent
Date Specimen was Collected: 08/30/25
Time Specimen was Collected: 23:23
Urine Microscopic Reflex Cult Urgent
Urine Culture Urgent
FRANCO Source: U
Specimen Description:
Date Specimen was Collected: 08/30/25
Time Specimen was Collected: 23:23
08/31/25 00:07
CT Head W/o Iv Contrast Urgent
Comment:
Reason For Exam: weakness prior cva
08/31/25 02:31
0.9% Sodium Chloride 1000 ml [Nss] 1,000 ml IV BOLUS
Abnormal Lab Results
08/30/25 08/30/25
22:17 23:24
RBC 3.83 L 10^6/uL
(4.20-5.40)
Hct 35.5 L %
(37.0-47.0)
MCH 31.3 H pg
(27.0-31.0)
Eosinophils % 6.3 H %
(0-6)
BUN 19 H mg/dl
(7-17)
AST 38 H U/L
(14-36)
Ur Occult Blood Reflex 2+ A
(Negative)
Leukocyte Esterase Rfl 2+ A
(Negative)
Urine RBC 3-6 A /HPF
(0-2)
Urine WBC (Reflex) 16-20 A /HPF
(0-5)
Urine Bacteria (Reflex) Moderate A
(Negative)
Urine Albumin (Reflex) 1+ A
(Neg - Trace)
08/30/25 22:17
08/30/25 22:17
Vital Signs
Initial and Last Documented VS:
Initial Vital Signs
Temp Pulse Resp BP Pulse Ox
98.4 F 81 20 162/93 96
08/30/25 22:07 08/30/25 22:07 08/30/25 22:07 08/30/25 22:07 08/30/25 22:07
Last Documented Vital Signs
Temp Pulse Resp BP Pulse Ox
98.4 F 80 14 150/91 93
08/30/25 22:07 08/31/25 01:15 08/31/25 01:15 08/31/25 01:00 08/31/25 01:15
MDM/Problems Addressed
Differential Diagnosis Includes:
UTI electrolyte abnormality dehydration recrudescence deconditioning subacute stroke less likely seizure
MDM/Problems Addressed:
Weakness
Chronic conditions affecting care: Neurological disorder
Acute Exacerbation and/or Progression of Chronic Illness: Neurological disorder
*Radiology
Radiology exam reviewed: radiology read reviewed
*Pulse Oximetry
SaO2: 95
Oxygen Mode of Delivery: Room air
Patient hypoxic: no
*Jacquard Loom Heddles Tier Interpretation
Rate: normal
Interpretation: normal
Heart Rate: 78
Rhythm: sinus
*Critical Care Note
Total Time (30-74mins, 75-104mins- exclusive of procedures): Not Applicable
Data Reviewed
Review of Other/Old Records Reveals: Radiology Studies
Source: family
Update Note
Update Note:
2:45 AM urine noted culture pending family states she deafly not at her baseline, start antibiotics empirically so straight cath does have a lot of epi cells's CT looks unchanged
ED Attending Note
-
Portions of this chart may have been created with voice recognition software.� Occasional wrong word or��sound alike� substitutions may have occurred due to the inherent limitations of voice recognition software.
Discharge Plan
Departure
Patient Disposition: Admit
Date of Disposition: 08/31/25
Time of Disposition: 02:48
Admit to: Med/Surg
Presentation/result/management discussed w/ accepting MD/DO: Hospitalist
Patient with high blood pressure during this ER visit?: No
Condition: Fair
Discharge Problem:
Underweight, Confusion
Prescriptions:
No Action
levothyroxine 75 mcg Tablet
75 mcg PO DAILY
calcium carbonate 500 mg calcium (1,250 mg) Tablet
600 mg PO BID
cholecalciferol (vitamin D3) [Vitamin D3] 50 mcg (2,000 unit) Tablet
50 mcg PO DAILY
cyanocobalamin (vitamin B-12) 2,500 mcg Tablet
2,500 mcg PO DAILY
flaxseed oil 1,000 mg Capsule
1,000 mg PO BID
atorvastatin 40 mg tablet
40 mg PO HS
baclofen 5 mg Tablet
5 mg PO BID
trazodone 50 mg Tablet
50 mg PO HS
docusate sodium [Colace] 100 mg Capsule
200 mg PO DAILY
docusate sodium [Colace] 100 mg Capsule
100 mg PO HS
ascorbic acid (vitamin C) [Vitamin C] 500 mg Tablet
500 mg PO HS
meloxicam 7.5 mg Tablet
7.5 mg PO DAILY
midodrine 2.5 mg Tablet
2.5 mg PO ONCE
gabapentin 300 mg capsule
600 mg PO BID
azithromycin 250 mg Tablet
250 mg PO DAILY
prednisone 20 mg Tablet
20 mg PO DAILY
aspirin 81 mg Tablet,Delayed Release (Dr/Ec)
81 mg PO DAILY Qty: 0 0RF
guaifenesin 600 mg tablet extended release 12hr
600 mg PO Q12H PRN (Reason: Congestion) Qty: 0 0RF
albuterol sulfate 90 mcg/actuation HFA aerosol inhaler
2 puff inhalation R Q4HPRN PRN (Reason: shortness of breath or wheezing) 30 Days Qty: 1 0RF
Anoro Ellipta 62.5-25 mcg/actuation Blister With Device
2 inh INHALATION R DAILY 30 Days Qty: 1 0RF
Referrals:
Robert Germain DO [Family Provider, Family Practice]
Interventions
Interventions:
*General Assessment Last Done: 08/30/25 22:07
*Neglect/Abuse Screening Last Done: 08/30/25 22:40
*ED COVID-19 Vaccine History Last Done: 08/30/25 22:40
*ED Influenza Vaccine History Last Done: 08/30/25 22:40
[facility] Fall Risk Assessment Tool Last Done: 08/30/25 22:40
*Risk Screen - Suicide (C-SSRS) Last Done: 08/30/25 22:40
ED- Pulmonary Assessment Last Done: 08/30/25 22:37
ED- Neurological Assessment Last Done: 08/30/25 22:37
ED- Cardiac Assessment Last Done: 08/30/25 22:37
Discharge Date and Time
Print Language: VIETNAMESE
[2025-08-31 02:36] LABS: Urine Squamous Cell >30 /LPF (Few)
[2025-08-31 02:38] LABS: Urine White Cell 16-20 /HPF (0-5)
[2025-08-31] MEDS: NSS 1000 IV ×2 (02:43→06:33)
[2025-08-31] MEDS: ROCEPHIN 1000 MG IV ×2 (02:52→13:57)
--- NOTE | 2025-08-31 03:28 | HPS.HSE ---
Family Physician
-
Family Physician: Robert Germain, DO
Chief Complaint
-
Altered mental status
History of Present Illness
This is a 74-year-old with past medical history significant for COPD, hypothyroid, hyperlipidemia, hypertension, low BMI, CAD, history of CVA who presents to the emergency department after family stated that she is just not her usual self.
According to records, patient has been having chills and right-sided weakness for the past month. She was diagnosed with urinary tract infection and had been on Levaquin and then antifungal treatment. Symptoms began about a month ago. She usually
develops worsening aphasia and worsening right upper extremity weakness as well as left lower extremity weakness, ambulatory dysfunction with urinary tract infections. She had a course of oral antibiotics and she had improvement for about 1 week.
I advise she return to the PMD a week later with recurrence of symptoms and was started on antifungal agent. 1 week after that she had recurrence of symptoms and then was placed on antifungal and antiviral agent. The plan was to give her
antifungal agent once a week for 3 weeks. However urinalysis at that time was negative for yeast and negative for bacteria so these agents were discontinued. Despite this she has had increased lethargy and decreased p.o. intake over the last 24
hours. Increasing weakness noted. There has been no fevers. There has been no nausea vomiting or diarrhea. She denies abdominal pain. She denies any chest pain. She denies any shortness of breath. She denies having any chest pain palpitations
lightheadedness or dizziness.
In the emergency department she was afebrile blood pressure 143/78 with a pulse of 77 and oxygen saturation of 98% on room air. CT of the head was negative.
CBC was unremarkable, electrolytes BUN and creatinine were all normal. UA was positive for leukocyte esterase, WBCs and bacteria otherwise also contaminated.
Medical History
Past Medical History
Past Medical History: Reports COPD, CVA and Hypothyroidism
Additional Past Medical History:
hyponatremia
Past Surgical History: Reports and Orthopedic (Left total hip arthroplasty)
Social History
Tobacco: Former Smoker
Alcohol: None
Drug: None
Personal:
Living: With Family
Employment: Retired
Family History
Family History: Not pertinent
Allergies / Home Medications
Allergies reflects when Allergies were last updated in [facility].
Home Medications with original date entered in [facility]
Allergy/Medication List:
Allergies
Allergy/AdvReac Type Severity Reaction Status Date / Time
adhesive tape Allergy SKIN Verified 07/25/24 01:22
IRRITATION
Home Medications
calcium carbonate 500 mg PO BID Supplement 07/15/23
cholecalciferol (vitamin D3) 50 mcg (2,000 unit) tablet (Vitamin D3) 50 mcg PO DAILY Supplement 07/15/23
cyanocobalamin (vitamin B-12) 2,500 mcg tablet 2,500 mcg PO DAILY Supplement 07/15/23
gabapentin 300 mg capsule 300 mg PO BID Pain 07/15/23
levothyroxine 75 mcg tablet 75 mcg PO DAILY Thyroid 07/15/23
flaxseed oil 1,000 mg capsule 1,000 mg PO BID Supplement 02/26/24
atorvastatin 40 mg tablet 40 mg PO HS High Cholesterol 03/15/24
albuterol sulfate 90 mcg/actuation aerosol inhaler 2 puff inhalation R Q4HPRN PRN shortness of breath or wheezing 30 days #1 container 04/11/24
aspirin 81 mg tablet,delayed release 81 mg PO DAILY CVA- take lifelong #0 tabs 04/11/24
baclofen 5 mg tablet 2.5 mg (1/2 x 5 mg) PO BID spasms, increased tone 30 days #30 tabs 04/11/24
guaifenesin 600 mg tablet, extended release 12 hr 600 mg PO Q12H PRN Congestion #0 tabs 04/11/24
midodrine 5 mg tablet 2.5 mg (1/2 x 5 mg) PO TID@0800,1300,1800 orthostatic hypotension-low pressure 30 days #30 tabs 04/11/24
olodaterol 2.5 mcg/actuation mist for inhalation (Striverdi Respimat) 2 puff inhalation R DAILY copd- comparable substitute acceptable 30 days #1 container 04/11/24
trazodone 50 mg tablet 12.5 mg (1/4 x 50 mg) PO HS insomnia 30 days #8 tabs 04/11/24
umeclidinium 62.5 mcg-vilanterol 25 mcg/actuation powdr for inhalation (Anoro Ellipta) 2 inh inhalation R DAILY Lung/Breathing Issues 30 days #1 container 04/11/24
Review of Systems
-
History Source: Family
Constitutional: Reports Chills; Denies Fever or Night Sweats
EENT: Reports No Symptoms
Respiratory: Reports No Symptoms
Cardiac: Reports No Symptoms
Abdomen/GI: Reports No Symptoms
: Reports No Symptoms
Musculoskeletal: Reports No Symptoms
Skin: Reports No Symptoms
Neurological: Reports No Symptoms
Endocrine: Reports No Symptoms
Hematologic/Lymphatic: Reports No Symptoms
Psych: Reports No Symptoms
Physical Exam
Vital Signs
Vital Signs
Temp Pulse Resp BP Pulse Ox
98.4 F 77 15 143/78 93
08/30/25 22:07 08/31/25 03:00 08/31/25 03:00 08/31/25 03:00 08/31/25 03:00
Physical Exam
General: No Apparent Distress, Comfortable, Conversant and Slurred Speech (slow speech with marked aphasia)
HEENT: NormoCephalic, Anicteric, Moist mucous membranes, Atraumatic and PERRLA
Respiratory: Clear and Non Labored Respirations
Cardiac: S1/S2 and Regular Rhythm
Breast: Deferred by me
GI: Soft, Non Tender, Non Distended and Normal Bowel Sounds
Rectal: Deferred by Provider
Genito-urinary: Deferred by me
Musculoskeletal: No Clubbing, No Cyanosis and No Edema
Skin: Warm
Neuro: AO x 3, No Sensory Deficits, Facial Droop (right facial droop, old) and Other (spastic paresis in the right arm, 4/5 weakness in the right leg)
Hematologic/Lymphatic: No Lymphadenopathy
Psych: Calm
Laboratory Results
-
08/30/25 22:17
08/30/25 22:17
Laboratory Results
Total Bilirubin 0.8 mg/dl (0.2-1.3) 08/30/25 22:17
AST 38 U/L (14-36) H 08/30/25 22:17
ALT 30 U/L (0-35) 08/30/25 22:17
Alkaline Phosphatase 88 U/L (38-126) 08/30/25 22:17
Data Reviewed
-
CT Scan: Report Reviewed by me
Medical Tests (Nuc Med, Echo, EKG etc): Image Personally Visualized and interpreted
Lab Data: Labs Reviewed by me
Old Records: Reviewed
Impression/Plan
-
IMPRESSION:
74 y.o female with h/o left inferior basal ganglia stroke w/ residual aphasia, a spastic right upper extremity weakness and mild lower extremity weakness presenting with increased confusion and weakness. No respiratory symptoms. Recent tx for UTIs
with levaquin and antifungals though now discontinued. U/A remains positive but contaminated. CT unremarkable.
PLAN:
1. Weakness - UTI per u/a but no other obvious source of weakness.
- admit to telemetry/observation
- check influenza a+ b and covid
- urine cultures pending
- ceftriaxone iv for now
- orthostatic vs
- pt consult
2. COPD
- continue inhaled LABA and LAMA
- duonebs q 4 hours prn
3. CVA - Left inferior basal ganglia CVA with residual aphasia, left arm weakness and mild left leg weakness. Left arm has been more stiff over the last few weeks per son. CT scan does not show acute stroke but ongoing evolution.
- continue aspirin/statin
- baclofen for stiffness
DVT PPX - lovenox sq
Code status - Full Code
[2025-08-31 04:13] LABS: COVID-19 Antigen Negative (Negative)
[2025-08-31 06:04] LABS: Hematocrit 31.0 % (37.0-47.0); Hemoglobin 10.7 g/dL (12.0-16.0); Mean Corp Hgb Conc. 34.5 g/dL (33.0-37.0); Mean Corpuscular Volume 92.0 fL (81.0-99.0); Platelet Count 191 10^3/uL (130-400); Red Cell Dist. Width 12.9 % (11.5-14.5)
[2025-08-31 06:17] LABS: Blood Urea Nitrogen 15 mg/dl (7-17); Calcium 8.2 mg/dl (8.4-10.2); Carbon Dioxide 20 mmol/L (22-30); Chloride 111 mmol/L (98-107); Estimated Creatinine Clearance 59 ml/min; Glucose 83 mg/dl (70-99); Magnesium 1.6 mg/dl (1.6-2.3); Potassium 3.8 mmol/L (3.5-5.1); Sodium 136 mmol/L (135-145); eGFR > 60.00
[2025-08-31] MEDS: SEROQUEL 25 MG PO (06:26)
[2025-08-31 06:54] LABS: TSH 0.12 uIU/ml (0.47-4.68)
--- NOTE | 2025-08-31 08:35 | W.PN.HOSP.TC ---
Today's Communication/Plan
-
Physical therapy recommending home versus SNF, will discuss with family
Assessment / Plan
Assessment / Plan
Impression:
74-year-old female with a history of left inferior basal ganglia stroke resulting in residual aphasia, spastic right upper extremity weakness, and mild lower extremity weakness. She presents with increased confusion and generalized weakness. No
respiratory symptoms reported. Recently treated for urinary tract infections with Levaquin and antifungals, now discontinued. Current urinalysis remains positive but appears contaminated. CT head is unremarkable.
Assessment/plan:
Weakness
Likely related to UTI per urinalysis; no other obvious source identified.
Admitted to telemetry/observation.
negative influenza A/B and COVID testing.
Urine cultures pending.
Start IV ceftriaxone.
Monitor orthostatic vital signs.
Physical therapy consult.
COPD
CT chest:
1. Patchy subpleural consolidation within the posterolateral right middle lobe likely reflecting atelectasis and/or pneumonia. Recommend follow-up imaging after treatment.
Add doxycycline
Continue inhaled LABA and LAMA.
Duonebs every 4 hours as needed.
History ofCVA
History of left inferior basal ganglia stroke with residual aphasia, left arm weakness, and mild left leg weakness. Son reports increased stiffness in left arm over past few weeks.
CT scan shows no acute stroke but ongoing evolution.
Continue aspirin and statin.
Start baclofen for stiffness.
DVT prophylaxis: Lovenox subcutaneous.
Code status: Full Code
Diet: Soft diet
Disposition: Physical therapy recommending home versus SNF, will discuss with family
Total time spent on today's encounter was 55 minutes which included time spent in counseling the patient/family regarding diagnosis and treatment plan as listed above, goals of care, and symptom management. Case was discussed with nursing staff,
specialists, and care coordinators/case management. All labs and imaging personally reviewed by me. Remainder the time spent in detailed review of previous records, lab data, imaging, and other medical provider documentation.
Part of this note was created using voice recognition system. Occasional wrong word or �sound alike� substitutions may have inadvertently occurred due to the inherent limitations of voice recognition software. If noted kindly bring it to my
attention for correction.
Anticipated Discharge: Within 24 hours
Subjective/Interval History
-
Date of Service: August 31, 2025
Patient seen and examined at bedside, poor communication secondary to aphasia, denies chest pain or shortness of breath
Objective Data
-
Labs:
Laboratory Results
08/30/25 08/31/25
22:17 05:55
WBC 6.4 4.9
Hgb 12.0 10.7 L
Hct 35.5 L 31.0 L
Plt Count 232 191
Sodium 135 136
Potassium 3.8 3.8
Chloride 105 111 H
Carbon Dioxide 26 20 L
BUN 19 H 15
Creatinine 0.6 0.6
Glucose 91 83
Calcium 9.1 8.2 L
Total Bilirubin 0.8
AST 38 H
ALT 30
Alkaline Phosphatase 88
Vital Signs:
Vital Signs
Temp Pulse Resp BP Pulse Ox
98.4 F 63 17 139/80 92
08/30/25 22:07 08/31/25 06:11 08/31/25 06:00 08/31/25 06:14 08/31/25 05:45
Physical Exam
-
General: Appears Chronically Ill
HEENT: Normocephalic, Atraumatic, Moist Mucous Membranes, No Ptosis, PERRLA and Nose Appears Normal
Respiratory: Rales and Non Labored Respirations
Cardiac: Regular Rhythm and S1/S2
Breast: Deferred by me
GI: Soft, Nontender, Nondistended and Normal Bowel Sounds
Genito-urinary: No Costovertebral Tender
Musculoskeletal: No Clubbing, No Cyanosis and No Edema
Skin: Warm
Neuro: Awake and Other (Contracted lower extremity)
Psych: Calm and Confused
Data Reviewed
-
Diagnostic Radiology: Image personally visualized and interpreted and Report Reviewed by me
CT Scan: Image personally visualized and interpreted and Report Reviewed by me
Ultrasound: Image personally visualized and interpreted and Report Reviewed by me
MRI: Image personally visualized and interpreted and Report Reviewed by me
Medical Tests (Nuc Med, Echo etc): Image personally visualized and interpreted and Report Reviewed by me
Labs: Labs Reviewed by me
Old Records: Reviewed
--- NOTE | 2025-08-31 08:52 | PHANOTE ---
MED REC NOTE - contacted son to get current pharmacy info will call at 9am when they open
[2025-08-31] MEDS: VITAMIN D3 (cholecalciferol) 50 MCG PO (09:02)
[2025-08-31] MEDS: ASPIR LOW (ENTERIC COATED) 81 MG PO (09:02)
[2025-08-31] MEDS: SYNTHROID 75 MCG PO (09:02)
[2025-08-31] MEDS: COLACE 200 MG PO (09:02)
--- NOTE | 2025-08-31 10:07 | CM ---
Chart reviewed and spoke with sophie Fuentes on the phone
GARCIA reviewed with son on the phone
Lives with son Alfredo and his dtrs in [address] [place] [address] [place]
Per son, pt is oriented to person but gets confused
He and his dtrs help with ADLs
PCP Dr. Kapoor
[facility]
h xof [facility]
no hx of SNF
DCP is to go home per son
Son states that patient did not like anyone from
Son can provide transportation at [place]
CM will continue to follow up for any dcp needs
[2025-08-31] MEDS: NEURONTIN 600 MG PO ×2 (10:52→20:52)
[2025-08-31] MEDS: LIORESAL 5 MG PO ×3 (10:52→20:53)
[2025-08-31] MEDS: VITAMIN B-12 PO (10:52)
[2025-08-31] MEDS: STERILE WATER FOR INJECTION 10 ML IV (13:57)
[2025-08-31] MEDS: VIBRAMYCIN 100 MG PO ×2 (13:57→20:52)
--- NOTE | 2025-08-31 16:57 | CM ---
CM spoke with patient and her son at bedside. Patient is expected to be ready for d/c on 09/01/25. PT is recommending home vs. SNF. Patient wishes to return home upon d/c. Her son and grandson will be available to assist her at home. Discussed home
health. Patient's son is unsure if he wants home health. He will discuss further with patient. CM will follow up on 09/02/25. Son will provide transport home. IMM given.
Plan: Home, patient/family to decide on home health
[2025-08-31] MEDS: LOVENOX 30 MG SC (17:35)
[2025-08-31] MEDS: COLACE 100 MG PO (20:52)
[2025-08-31] MEDS: LIPITOR 40 MG PO (20:52)
[2025-08-31] MEDS: DESYREL 100 MG PO (20:52)
[2025-08-31] MEDS: VITAMIN C 500 MG PO (20:53)
[2025-09-01] MEDS: SYNTHROID 75 MCG PO (06:11)
[2025-09-01 06:30] LABS: Blood Urea Nitrogen 12 mg/dl (7-17); Calcium 8.9 mg/dl (8.4-10.2); Carbon Dioxide 21 mmol/L (22-30); Chloride 107 mmol/L (98-107); Estimated Creatinine Clearance 60 ml/min; Glucose 78 mg/dl (70-99); Potassium 3.7 mmol/L (3.5-5.1); Sodium 135 mmol/L (135-145); eGFR > 60.00
[2025-09-01 06:41] LABS: Hematocrit 34.4 % (37.0-47.0); Hemoglobin 12.0 g/dL (12.0-16.0); Mean Corp Hgb Conc. 34.9 g/dL (33.0-37.0); Mean Corpuscular Volume 90.5 fL (81.0-99.0); Platelet Count 237 10^3/uL (130-400); Red Cell Dist. Width 12.6 % (11.5-14.5)
[2025-09-01 07:00] VITALS: BP 134/82
[2025-09-01] MEDS: SPIRIVA RESPIMAT 2.5 MCG 2 PUFF INH (07:48)
[2025-09-01] MEDS: STRIVERDI RESPIMAT 2 PUFF INH (07:48)
[2025-09-01] MEDS: COLACE 200 MG PO (08:53)
[2025-09-01] MEDS: ASPIR LOW (ENTERIC COATED) 81 MG PO (08:53)
[2025-09-01] MEDS: NEURONTIN 600 MG PO (08:53)
[2025-09-01] MEDS: VIBRAMYCIN 100 MG PO (08:53)
[2025-09-01] MEDS: LIORESAL 5 MG PO (08:53)
[2025-09-01] MEDS: VITAMIN D3 (cholecalciferol) 50 MCG PO (08:54)
[2025-09-01] MEDS: VITAMIN B-12 2500 MCG PO (08:54)
--- NOTE | 2025-09-01 13:09 | W.PN.HOSP.TC ---
Addendum entered and electronically signed by Kirk Sosa MD 09/01/25 13:56:
Pt does not offer acute complaints.
Original Note:
Today's Communication/Plan
-
see plan
Assessment / Plan
Assessment / Plan
Admission summary: 74-year-old female with a history of left inferior basal ganglia stroke resulting in residual aphasia, spastic right upper extremity weakness, and mild lower extremity weakness. She presents with increased confusion and
generalized weakness. No respiratory symptoms reported. Recently treated for urinary tract infections with Levaquin and antifungals, now discontinued. Current urinalysis remains positive but appears contaminated. CT head is unremarkable.
Gen: NAD, Awake and alert
Eyes: EOMI, PERRLA, no scleral icterus.
Neck: supple.
CV: RRR, +S1/S2, no m/r/g.
Resp: CTAB, no rales, wheezes, or rhonchi.
Abd: +BS, soft, NT, ND
Skin: No rashes.
Neuro: slight R facial droop
Psych: Normal mood and affect.
CT chest: Patchy subpleural consolidation within the posterolateral right middle lobe likely reflecting atelectasis and/or pneumonia. Recommend follow-up imaging after treatment.
Weakness:
-to be clear there was never any urinary tract infection, UCx NG, stop Rocephin
-COVID/Flu NEG
-PT/OT
-imaging findings likely atelectasis. Afebrile, no leukocytosis. Check procal.
h/o CVA
-left inferior basal ganglia stroke with residual aphasia, R arm weakness, and mild R leg weakness (confirmed with pt's son at bedside)
-CT brain above
-cont ASA/statin
-baclofen started for stiffness
Other problems:
COPD: not in acute exac, cont Striverdi/Spiriva
Hypothyroidism: TSH low, check fT4, cont Levoxyl
FULL/Lovenox
Anticipated Discharge: Within 24 hours
Subjective/Interval History
-
Date of Service: September 01, 2025
Objective Data
-
Labs:
Laboratory Results
09/01/25
05:18
WBC 5.7
Hgb 12.0
Hct 34.4 L
Plt Count 237 D
Sodium 135
Potassium 3.7
Chloride 107
Carbon Dioxide 21 L
BUN 12
Creatinine 0.6
Glucose 78
Calcium 8.9
Vital Signs:
Vital Signs
Temp Pulse Resp BP Pulse Ox
97.9 F 68 14 134/82 94
09/01/25 07:00 09/01/25 07:52 09/01/25 07:52 09/01/25 07:00 09/01/25 08:50
I&O
08/31/25 09/01/25 09/02/25
06:59 06:59 06:59
Intake Total 480 / 480 480 / 480
Balance 480 / 480 480 / 480
[2025-09-01 14:37] LABS: Procalcitonin < 0.05 ng/ml (0.0-0.25)
[2025-09-01 15:00] VITALS: BP 140/78
--- NOTE | 2025-09-01 16:04 | PTCARENOTE ---
Pt requesting to leave and was told she would be leaving tomorrow. Pt's son stated she will be leaving even if not discharged. Pt signed the AMA form and Dr Bergman [facility] hospitalist made aware. IV removed and family getting pt dressed.
== END 2025-09-01 16:15 | disposition left against medical advice (07) | DRG 947 ==
LOC: 4 WEST ACU 14:03
PROVIDERS: General Practice; Student in an Organized Health Care Education/Training Program; ADMITTING PHYSICIAN Internal Medicine; ATTENDING PHYSICIAN Internal Medicine; EMERGENCY PHYSICIAN Emergency Medicine; FAMILY PHYSICIAN Student in an Organized Health Care Education/Training Program
DX: R53.1 Weakness (principal); J18.9 Pneumonia, unspecified organism; E87.1 Hypo-osmolality and hyponatremia; J98.11 Atelectasis; J44.9 Chronic obstructive pulmonary disease, unspecified; E03.9 Hypothyroidism, unspecified; I10 Essential (primary) hypertension; I25.10 Atherosclerotic heart disease of native coronary artery without angina pectoris; E78.5 Hyperlipidemia, unspecified; I69.320 Aphasia following cerebral infarction; Z96.642 Presence of left artificial hip joint; Z87.891 Personal history of nicotine dependence; Z53.29 Procedure and treatment not carried out because of patient's decision for other reasons; H93.19 Tinnitus, unspecified ear; M31.5 Giant cell arteritis with polymyalgia rheumatica; R63.6 Underweight; Z11.52 Encounter for screening for COVID-19
CPT/HCPCS: 51701; 70450; 71250; 80048; 80053; 81003; 81015; 83735; 84145; 84439; 84443; 85025; 85027; 87086; 87502; 87811; 94640; 96361; 96374; 97167; 99285